=== PATIENT | male | born 1975 | race Caucasian/White ===

== ENCOUNTER 2020-08-28 21:12 | Inpatient (IN) | payer OTHER, SELFPAY ==
[2020-08-28 21:13] VITALS: BP 220/119; PULSE 122; RESP 18; TEMP 37.4; O2SAT 94; BMI 49.8
--- NOTE | 2020-08-28 21:50 | EKG12_ITS ---
Test Reason : Blood Pressure : / mmHG Vent. Rate : 113 BPM Atrial Rate : 113 BPM P-R Int : 160 ms QRS Dur : 088 ms QT Int : 340 ms P-R-T Axes : 045 015 027 degrees QTc Int : 466 ms Sinus tachycardia Otherwise normal ECG Confirmed by JOHN WHIPPLE, MICHELLE ([id number]), newspaper managing editor CHIOMA SOTELO ([id number]) on 08/30/2020 8:17:58 AM Referred By: Confirmed By:JOHANNY LOPEZ MD
--- NOTE | 2020-08-28 21:51 | CT_ITS ---
STUDY: CT SOFT TISSUE NECK WITH CONTRAST REASON FOR EXAM: Male, 45 years old. Abscess RADIATION DOSAGE (If Supplied By Facility): CTDIvol = ( 19.26 ) mGy, DLP = ( 620.61 ) mGycm TECHNIQUE: The patient was scanned in a multi-detector CT scanner. High resolution transaxial imaging was performed following intravenous administration of IV 100mL Isovue-370. Sagittal and coronal images were reconstructed. Individualized dose optimization techniques were used for this CT. COMPARISON: None. FINDINGS: Normal bilateral parotid glands. Normal bilateral sociology instructor spaces. Normal bilateral parapharyngeal spaces. Normal bilateral carotid spaces. Normal bilateral sublingual and submandibular glands and spaces. Normal visualized nasopharynx. Normal retropharyngeal space. Normal perivertebral space. Normal visualized bilateral faucial tonsils. The visualized tongue, tongue base and oropharynx are normal. The visualized cervical lymph nodes (levels I-) are within normal size limits, and maintain normal morphology. There is no demonstrated solid or cystic mass lesion. There is no abnormal contrast enhancement. Normal epiglottis, bilateral vallecula and hypopharynx. The pre-epiglottic and paraglottic adipose spaces are normal. Normal visualized bilateral piriform sinuses, aryepiglottic folds, vocal cords, and arytenoid-cricoid articulations. Normal subglottic trachea. Diffusely enlarged and heterogeneous thyroid. Normal visualized pulmonary apices. Normal visualized paranasal sinuses. Normal visualized cervical spine. Within the subcutaneous tissues of the left posterior neck, there is inflammation and edema without discrete abscess. Likely cellulitis. CT/Soft Tissue Neck WITH Contrast IMPRESSION: Within the subcutaneous tissues of the left posterior neck, inflammation and edema without a discrete abscess. Likely cellulitis. Enlarged and heterogeneous thyroid diffusely. Electronically Signed: Eric Mendes DO at 23:21 EDT Tel , Service support ,
[2020-08-28] MEDS: 0.9% Normal Saline 1,000 ML 999 ML IV (22:04)
[2020-08-28 22:21] LABS: Absolute Lymphocyte Count 2.09 X10^3/uL (0.83-4.51); Absolute Neutrophil Count 14.2 X10^3/uL (2.0-7.7); Basophil# 0.06 X10^3/uL; Basophil% 0.3 % (0-1); Eosinophil# 0.08 X10^3/uL; Eosinophils% 0.4 % (0-5); Hematocrit 48.1 % (40-54); Hemoglobin 16.1 g/dL (13.0-16.5); Lymphocyte # 2.09 X10^3/ul (0.83-4.51); Lymphocyte % 11.6 % (19-41); Mean Corp Hgb Conc 33.5 g/dL (32-36); Mean Corpuscular Volume 83.8 fL (80-94); Mean Platelet Vol. 11.5 fl (6.2-12.0); Monocyte# 1.47 X10^3/uL; Monocyte% 8.2 % (0-10); NRBC Flagged by Analyzer 0 % (0-5); Neutrophil # 14.24 X10^3/uL (2.7-7.7); Platelet Count 238 K/mm3 (150-450); RBC Distribution Width CV 11.9 % (11.6-14.6); RBC Distribution Width SD 35.9 fl (35.1-43.9); Red Blood Count 5.74 M/mm3 (4.6-6.2)
[2020-08-28 22:31] LABS: Partial Thromboplast Time 27.8 Seconds (24.1-36.2); Prothrombin Time (Protime)PT. 12.8 SECONDS (11.7-14.9)
[2020-08-28 22:43] LABS: Lactic Acid 1.9 mmol/L (0.4-1.9)
[2020-08-28 22:49] LABS: ALB/GLOB Ratio 0.8 RATIO (0.9-2.4); AST(SGOT) 5 U/L (15-37); Alanine Aminotransfer ALT/SGPT 35 U/L (16-61); Albumin, Serum 3.7 g/dL (3.2-5.0); Alkaline Phosphatase 107 U/L (45-117); Anion Gap 8 (5-15); BUN 8 mg/dL (7-18); BUN/Creat Ratio 8.1 RATIO (10-20); Calcium,Total 9.1 mg/dL (8.5-10.1); Chloride 95 mmol/L (98-107); Creatinine, Serum 0.99 mg/dL (0.70-1.30); EST Glomerular Filtration Rate 88 mL/min (>60); Est Glom Filt Rate - Afr Amer 106 mL/min (>60); Estimated Creatinine Clearance 80.56 ml/min; Globulin 4.7 g/dL (2.2-4.2); Glucose 458 mg/dL (74-106); Potassium 3.4 mmol/L (3.5-5.1); Protein, Total 8.4 g/dL (6.4-8.2); Sodium Level 131 mmol/L (136-145)
[2020-08-28 22:57] VITALS: BP 146/110; PULSE 109; RESP 17; TEMP 37; O2SAT 93
[2020-08-28 23:36] VITALS: BP 136/100; PULSE 106; RESP 17; TEMP 37; O2SAT 93
--- NOTE | 2020-08-28 23:54 | HP.PCM_ITS ---
Problem List (1) Sepsis Status: Acute Qualifiers: Sepsis type: sepsis due to unspecified organism Sepsis acute organ dysfunction status: unspecified Qualified Code(s): A41.9 - Sepsis, unspecified organism (2) Cellulitis and abscess of neck Status: Acute (3) Diabetes mellitus, type II Status: Acute Qualifiers: Diabetes mellitus intermediate insulin use: without termite helper use Diabetes mellitus complication status: with other specified complication Qualified Code(s): E11.69 - Type 2 diabetes mellitus with other specified complication (4) Morbid obesity Status: Chronic (5) HTN (hypertension) Status: Chronic Qualifiers: Hypertension type: essential hypertension Qualified Code(s): I10 - Essential (primary) hypertension History of Present Illness Date of Admission: 08/28/20 Chief Complaint: L neck edema, redness, purulent drainage. The patient is a 45 y/o M w/ PMHx: HTN not on regimen, Morbidly obese who presents to the [facility] ED on 08/28/20 with history of onset mild irritation following recent neck shave several days prior to the left neck with development increasing redness to include the entire left posterior neck inferior to his occiput tracking all the way around to the left mastoid with a significant region of induration, some free drainage with significant pain and low-grade temperatures prompting ED evaluation. He notes that he has had some small infections in the past when he shaves but never something so significant. Work- up in the ED included T 99.3, heart rate 122, BP initially 220/119 with improvement to 136/100, respiratory rate 18, 84% on room air, CBC with WC 18, hemoglobin 16.1, platelet 238 with a significant left shift, unremarkable coags, CMP with sodium 131, potassium 3.4, chloride 95, glucose 458, lactic acid 1.9, hepatic profile not marked appearing, blood culture x2 pending per ED, CT soft tissue neck with noted subcutaneous tissues of the left posterior neck evidence of inflammation edema with no obvious discrete abscess reported with reportedly also an enlarged and heterogeneous thyroid diffusely Past Medical History Past Medical History (Chronic Problems): Chronic Problems HTN (hypertension) (Chronic) Morbid obesity (Chronic) Allergies No Known Allergies Allergy (Verified 08/28/20 21:15) Home Medications: Ambulatory Orders Medication Instructions Recorded NK 08/28/20 Surgical History: - - Vasectomy. 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 Smoking Status: Never smoker Tobacco Use: Non-smoker Alcohol: None Drugs: None - *Family History Maternal History Items: Diabetes Paternal History Items: Cancer Review of Systems Constitutional: Reports: Anorexia, Fever, Fatigue. Denies: Chills, Malaise, Weakness, Weight Change HEENT: Reports: Head Aches. Denies: Sinus Congestion, Sinus Drainage Cardiovascular: Denies: Chest Pain, Palpitations Respiratory: Denies: Cough, Shortness of breath at rest, Sputum production Gastrointestinal: Denies: Abdominal Pain, Nausea, Vomiting Genitourinary: Denies: Dysuria Musculoskeletal: Reports: Neck Pain. Denies: Joint Pain, Joint Tenderness Skin: Reports: Skin Changes, Wounds. Denies: Rash Neurological: Denies: Numbness, Tingling, Focal weakness Psychiatric: Denies: Anxiety, Depression, Homicidal Ideations, Suicidal Ideations Hematologic/ Lymphatic: Denies: Easy Bruising, Easy Bleeding VTE Information - Inpt Only VTE Present on Admission: No VTE Mechan Device Prophylaxis: SCD's VTE Pharm Prophylaxis ordered?: Yes Patient Problems: Active and Suspected Problems Cellulitis (Acute) Sepsis (Acute) Diabetes mellitus, type II (Acute) Cellulitis and abscess of neck (Acute) Subjective: Patient seated upright in the ED bed, uncomfortable appearing, diaphoretic. Objective: Physical Examination: General: awake, alert, oriented x 3 and cooperative, seated upright in the ED bed, uncomfortable appearing, obvious evidence cellulitis. Skin: normal color, turgor, no icterus, cyanosis except for noted left posterior neck significant erythema extending from inferior to the occiput and tracking around past the mastoid with a large region of induration and mild fluctuance with ability to express significant purulent material. HEENT: AT/NC, EOMI, PERRLA, dry MM, no carotid bruits or JVD noted. Lungs: Diminished, greater bases, appropriate effort, no rales, ronchi or wheezing. Heart: Mildly tachycardic with regular rhythm; no gallop, rub audible. Abdomen: soft, morbidly obese, NTTP, ND, normal BS, no HSM. Extremities: no cyanosis, clubbing, or edema. Neurological: patient awake, alert, oriented as noted; cognitive function intact; pupils equally reactive to light and accomodation; cranial nerves II-XII grossly normal, moving all 4 extremities, no focal deficits, strength mildly global decrease secondary to acute complaints. Psychiatric: affect appears fatigued, uncomfortable, no acute evidence of depressive or anxiety feelings. - Physical Exam Vitals/I&O's: Vital Signs Temp Pulse Resp BP Pulse Ox 98.6 F 106 H 17 136/100 H 93 08/28/20 23:36 08/28/20 23:36 08/28/20 23:36 08/28/20 23:36 08/28/20 23:36 Oxygen Delivery Method Room Air Weight: 290 lb Body Mass Index (BMI) 49.8 Intake and Output for Last 24 Hours 08/26/20 08/27/20 08/28/20 23:59 23:59 23:59 Intake Total 1000 / 1000 Balance 1000 / 1000 Laboratory Results 08/28/20 22:05: WBC 18.0 H, RBC 5.74, Hgb 16.1, Hct 48.1, MCV 83.8, MCH 28.0, MCHC 33.5, RDW Std Deviation 35.9, RDW Coeff of [place] 11.9, Plt Count 238, MPV 11.5, Immature Gran % (Auto) 0.500, Neut % (Auto) 79.0 H, Lymph % (Auto) 11.6 L, [place] % (Auto) 8.2, Eos % (Auto) 0.4, Baso % (Auto) 0.3, Absolute Neuts (auto) 14.2 H, Absolute Lymphs (auto) 2.09, Nucleated RBC % 0 08/28/20 22:05: PT 12.8, INR 1.0, APTT 27.8 08/28/20 22:05: Sodium 131 L, Potassium 3.4 L, Chloride 95 L, Carbon Dioxide 28.0, Anion Gap 8, BUN 8, Creatinine 0.99, Estim Creat Clear Calc 80.56, Est GFR (MDRD) Af Amer 106, Est GFR (MDRD) Non-Af 88, BUN/Creatinine Ratio 8.1 L, Glucose 458 H*, Calcium 9.1, Total Bilirubin 0.80, AST 5 L, ALT 35, Alkaline Phosphatase 107, Total Protein 8.4 H, Albumin 3.7, Globulin 4.7 H, Albumin/Globulin Ratio 0.8 L 08/28/20 22:05: Lactic Acid 1.9 Current Medications Vancomycin HCl 2,000 mg/ (Sodium Chloride) 540 mls @ 250 mls/hr IV X1 ONE Stop: 08/29/20 00:04 Last Admin: 08/28/20 22:12 Dose: 250 mls/hr Documented by: Assessment/Plan All Active Problems Cellulitis (Acute) Sepsis (Acute) Diabetes mellitus, type II (Acute) Cellulitis and abscess of neck (Acute) The patient is a 45 y/o M w/ PMHx: HTN not on regimen, Morbidly obese who presents to the [facility] ED on 08/28/20 with history of onset mild irritation following recent neck shave several days prior to the left neck with development increasing redness to include the entire left posterior neck inferior to his occiput tracking all the way around to the left mastoid with a significant region of induration, some free drainage with significant pain and low-grade temperatures prompting ED evaluation. 1. Acute Sepsis secondary to Acute Left Posterior Neck Cellulitis and Abscess: Although CT soft tissue neck does not do note discrete abscess patient with obvious significant purulent drainage on evaluation with wound culture and wound MRSA PCR sent during ED evaluation. Will admit to medical surgical floor, maintain on IV vancomycin and Zosyn given underlying diabetic history and working environment, plan repeat CBC in AM, monitor erythema outline with VS checks, as needed oral and IV pain regimen, as needed antiemetics, general surgeon consulted and will maintain n.p.o. status on IV fluids as suspect will likely need I&D. 2. Hyperglycemia with suspected underlying new onset Diabetes mellitus type II: Admission glucose significantly elevated 458, likely underlying diabetes compounded by acute infection presentation with sepsis, will maintain n.p.o. currently as expect I&D necessary but once appropriate transition to ADA diet, accu checks w/ ISS, add 10 units twice daily Lantus in interim, nutrition consultation for education and teaching, hemoglobin A1c requested. 3. Hypertension, uncontrolled: Patient reports having been diagnosed with hypertension but not on any medications, initial blood pressure significantly elevated although improved some in the ED, some component likely pain related but given underlying history will add lisinopril especially given presumed underlying diabetes, expect additional regimen or increase needed but will monitor and adjust as needed, as needed IV hydralazine. 4. Incidentally noted enlarged and heterogeneous thyroid: CT soft tissue neck with incidental thyroid findings, will obtain TSH and free T4. 5. Morbid Obesity: Weight loss and lifestyle changes encouraged, nutrition consulted. 6. DVT prophylaxis: SCDs, Lovenox. Inpatient E&M: [id number] Init Hosp L3
[2020-08-29] VITALS (16 sets, daily range): BP systolic 142–176; BP diastolic 89–117; PULSE 98–122; RESP 12–18; TEMP 36.8–38; O2SAT 93–97; BMI 32.5; BMI 32.6
--- NOTE | 2020-08-29 00:16 | ED.VIS.GEN ---
History of Present Illness Chief Complaint: Abscess Narrative: Patient presenting for evaluation due to concern for an infection in his neck. Patient states that over the course the last 2 days he has had increased swelling and pain over his left posterior neck. Patient states that he has a underlying history of hypertension that he does not take medications for denies any other underlying medical history. He denies any constitutional symptoms such as fever cough nausea vomiting diarrhea. Patient believes that this could potentially be an abscess, he tried to squeeze some stuff out of it but reports he was not able to express anything. Pain is moderate worse palpation. Past Medical History - Allergies and Home Meds Allergies/Adverse Reactions: Allergies No Known Allergies Allergy (Verified 08/28/20 21:15) Primary Care Physician: Care Physician,No Primary [Primary Care Provider] - Prior records reviewed: Yes Past Medical History: - - Hypertension Smoking Status: Never smoker Alcohol: None Drugs: None Review of Systems All systems negative except as indicated General: Denies: Chills, Fever, Sweats Eyes: Denies: Visual changes - bilaterally, Diplopia ENT: Denies: Rhinorrhea, Sore throat Cardiovascular: Denies: Chest pain, Palpitations Respiratory: Denies: Dyspnea, Cough, Dyspnea on exertion Gastrointestinal: Denies: Abdominal pain, Nausea, Vomiting, Diarrhea, Melena, Hematochezia Genitourinary: Denies: Dysuria, Hematuria, Frequency Musculoskeletal: Denies: Back pain, Extremity Pain Skin: Reports: Abscess Neurological: Denies: Headache, Weakness, Numbness Physical Exam Vital Signs/Narrative: Vital Signs Temp Pulse Resp BP Pulse Ox 08/28/20 23:36 98.6 F 106 H 17 136/100 H 93 08/28/20 22:57 98.6 F 109 H 17 146/110 H 93 08/28/20 21:13 99.3 F H 122 H 18 220/119 H 94 Inital Vital Signs reviewed: Yes General: Well nourished, Well developed, No Acute Distress Head: Normocephalic, Atraumatic Eyes: Perrl, EOMI ENT: Moist mucous membranes, No rhinorrhea Neck: Supple, - - Over the patient's left side of his posterior neck just inferior to his occiput and tracking all the way around past his mastoid there is a large area of induration with some superficial pus on the skin, no real palpable fluctuance. No subcutaneous emphysema. There is tenderness to palpation noted Cardiovascular: Regular rhythm, No murmurs, Tachycardia Respiratory: No distress, CTA bilaterally, Chest nontender Abdomen: Soft, Nontender, Nondistended, Normal bowel sounds Back: Nontender, Normal Inspection Extremities: Nontender, No edema Skin: Normal color, No rash Neurological: Alert, Oriented x3, Cranial nerves II-XII grossly intact, Normal Strength, Normal Sensation Psychological: Normal affect, Normal Mood Diagnostic/Tx/Re-eval Clinical Impression(s) from Imaging Studies Soft Tissue Neck CT 08/28/20 21:51 IMPRESSION: Within the subcutaneous tissues of the left posterior neck, inflammation and edema without a discrete abscess. Likely cellulitis. Enlarged and heterogeneous thyroid diffusely. Electronically Signed: Eric Mendes DO at 23:21 EDT Tel , Service support , Laboratory Data 08/28/20 08/28/20 08/28/20 22:05 22:05 22:05 WBC 18.0 H RBC 5.74 Hgb 16.1 Hct 48.1 MCV 83.8 MCH 28.0 MCHC 33.5 RDW Std Deviation 35.9 RDW Coeff of [place] 11.9 Plt Count 238 MPV 11.5 Immature Gran % (Auto) 0.500 Neut % (Auto) 79.0 H Lymph % (Auto) 11.6 L [place] % (Auto) 8.2 Eos % (Auto) 0.4 Baso % (Auto) 0.3 Absolute Neuts (auto) 14.2 H Absolute Lymphs (auto) 2.09 Nucleated RBC % 0 PT 12.8 INR 1.0 APTT 27.8 Sodium 131 L Potassium 3.4 L Chloride 95 L Carbon Dioxide 28.0 Anion Gap 8 BUN 8 Creatinine 0.99 Estim Creat Clear Calc 80.56 Est GFR (MDRD) Af Amer 106 Est GFR (MDRD) Non-Af 88 BUN/Creatinine Ratio 8.1 L Glucose 458 H* Lactic Acid Calcium 9.1 Total Bilirubin 0.80 AST 5 L ALT 35 Alkaline Phosphatase 107 Total Protein 8.4 H Albumin 3.7 Globulin 4.7 H Albumin/Globulin Ratio 0.8 L 08/28/20 22:05 WBC RBC Hgb Hct MCV MCH MCHC RDW Std Deviation RDW Coeff of [place] Plt Count MPV Immature Gran % (Auto) Neut % (Auto) Lymph % (Auto) [place] % (Auto) Eos % (Auto) Baso % (Auto) Absolute Neuts (auto) Absolute Lymphs (auto) Nucleated RBC % PT INR APTT Sodium Potassium Chloride Carbon Dioxide Anion Gap BUN Creatinine Estim Creat Clear Calc Est GFR (MDRD) Af Amer Est GFR (MDRD) Non-Af BUN/Creatinine Ratio Glucose Lactic Acid 1.9 Calcium Total Bilirubin AST ALT Alkaline Phosphatase Total Protein Albumin Globulin Albumin/Globulin Ratio - Medical Decision Making Patient presented with a large area of skin infection on his neck. He was tachycardic on arrival, and noted to have a large infectious area on his neck I was concerned for sepsis, sepsis order set was initiated patient was given vancomycin at the outside. CT imaging shows more cellulitic changes with no pockets of discrete abscess and no deep space infection. Patient was noted to have a leukocytosis of 18,000 and a blood sugar greater than 400. I believe the patient requires admission secondary to sepsis from the cellulitis. Patient will be admitted under the hospitalist. ED Disposition - Plan for ED Patient: Disposition: Acute [facility] Diagnosis: Cellulitis, Sepsis
[2020-08-29] MEDS: Acetaminophen 325 MG Tablet 650 MG PO ×3 (00:28→19:33)
[2020-08-29 00:56] LABS: Bedside Glucose 337 mg/dL (70-110)
[2020-08-29] MEDS: Potassium Chloride Oral Tablet 20 MEQ 40 MEQ PO (01:24)
[2020-08-29] MEDS: Lisinopril 10 MG Tablet PO ×2 (01:28→08:15)
[2020-08-29 01:36] LABS: Hemoglobin A1c 11.8 % (3.8-5.6)
[2020-08-29 01:38] LABS: Magnesium 2.1 mg/dL (1.6-2.6)
--- NOTE | 2020-08-29 01:59 | PCM.RX.CS ---
Consult Pharmacy has been consulted to manage selected antiobiotic: Vancomycin Type of Consult: New start Suspected Infection: Sepsis Labs: Sodium 131 mmol/L (136-145) L 08/28/20 22:05 Potassium 3.4 mmol/L (3.5-5.1) L 08/28/20 22:05 Chloride 95 mmol/L (98-107) L 08/28/20 22:05 Carbon Dioxide 28.0 mmol/L (21.0-32.0) 08/28/20 22:05 Anion Gap 8 (5-15) 08/28/20 22:05 BUN 8 mg/dL (7-18) 08/28/20 22:05 Creatinine 0.99 mg/dL (0.70-1.30) 08/28/20 22:05 Est GFR (MDRD) Af Amer 106 mL/min (>60) 08/28/20 22:05 Est GFR (MDRD) Non-Af 88 mL/min (>60) 08/28/20 22:05 BUN/Creatinine Ratio 8.1 RATIO (10-20) L 08/28/20 22:05 Glucose 458 mg/dL (74-106) H* 08/28/20 22:05 Weight used for dosin.4 kg Estimated Creatinine Clearance: 137 Goal Trough: 15-20 mcg/mL Pharmacy Plan for Drug Dosing: Pharmacy Service will continue to monitor and adjust dosing as required. Medications Vancomycin HCl 1,500 mg/ (Sodium Chloride) 530 mls @ 250 mls/hr IV Q8H [place] Discontinued Medications Vancomycin HCl 2,000 mg/ (Sodium Chloride) 540 mls @ 250 mls/hr IV X1 ONE Stop: 08/29/20 00:04 Last Admin: 08/29/20 00:41 Dose: Infused Documented by: Follow-Up Labs: Trough Vancomycin Labs to be done on [date and time ordered]: 08/29 @ 1570
[2020-08-29] MEDS: 0.9% Normal Saline 1,000 ML 125 ML IV ×3 (02:14→22:44)
[2020-08-29 03:24] LABS: M R Staph aureus DNA By PCR POSITIVE (Negative); Specimen Processing Control PASS; Staph aureus DNA By PCR POSITIVE (Negative)
[2020-08-29 03:25] LABS: Probe Check PASS
[2020-08-29] MEDS: oxyCODONE 5 MG Tablet PO ×3 (03:37→19:42)
[2020-08-29] MEDS: Morphine 2 MG/ML Syringe IV ×3 (05:29→11:59)
[2020-08-29 06:51] LABS: Bedside Glucose 270 mg/dL (70-110)
[2020-08-29] MEDS: Insulin Lispro 100 UNIT/ML INSULN.PEN SC ×4 (06:58→22:13)
[2020-08-29 07:06] LABS: Absolute Lymphocyte Count 1.45 X10^3/uL (0.83-4.51); Absolute Neutrophil Count 12.5 X10^3/uL (2.0-7.7); Basophil# 0.04 X10^3/uL; Basophil% 0.3 % (0-1); Eosinophils% 0.6 % (0-5); Hemoglobin 14.2 g/dL (13.0-16.5); Lymphocyte # 1.45 X10^3/ul (0.83-4.51); Lymphocyte % 9.2 % (19-41); Mean Corp Hgb Conc 32.3 g/dL (32-36); Mean Corpuscular Hgb 27.7 pg (27.0-32.0); Mean Corpuscular Volume 85.9 fL (80-94); Mean Platelet Vol. 11.2 fl (6.2-12.0); Monocyte# 1.51 X10^3/uL; Monocyte% 9.6 % (0-10); NRBC Flagged by Analyzer 0 % (0-5); Neutrophil # 12.49 X10^3/uL (2.7-7.7); Neutrophil % 79.2 % (47-70); POSITIVE DIFFERENTIAL YES; Platelet Count 207 K/mm3 (150-450); RBC Distribution Width SD 37.8 fl (35.1-43.9); Red Blood Count 5.12 M/mm3 (4.6-6.2); White Blood Count 15.8 K/mm3 (4.4-11.0)
[2020-08-29 07:07] LABS: Differential Indicated SCAN CRITERIA MET
[2020-08-29 07:40] LABS: ALB/GLOB Ratio 0.7 RATIO (0.9-2.4); AST(SGOT) 8 U/L (15-37); Alanine Aminotransfer ALT/SGPT 26 U/L (16-61); Albumin, Serum 2.9 g/dL (3.2-5.0); Alkaline Phosphatase 89 U/L (45-117); Anion Gap 7 (5-15); BUN 8 mg/dL (7-18); Calcium,Total 8.3 mg/dL (8.5-10.1); Chloride 102 mmol/L (98-107); Creatinine, Serum 0.73 mg/dL (0.70-1.30); EST Glomerular Filtration Rate 125 mL/min (>60); Est Glom Filt Rate - Afr Amer 151 mL/min (>60); Estimated Creatinine Clearance 160.19 ml/min; Glucose 302 mg/dL (74-106); Potassium 3.6 mmol/L (3.5-5.1); Protein, Total 6.9 g/dL (6.4-8.2); Sodium Level 136 mmol/L (136-145); T4 Free Direct 1.23 ng/dL (0.76-1.46); Thyroid Stim Hormone (TSH) 1.27 uIU/mL (0.358-3.74)
--- NOTE | 2020-08-29 08:02 | PN_ITS ---
Patient Problems: Active and Suspected Problems Cellulitis (Acute) Sepsis (Acute) Diabetes mellitus, type II (Acute) Cellulitis and abscess of neck (Acute) Reason for Visit: Soft tissue infection involving the left side of the neck Subjective: Patient is a 45-year-old gentleman who presented with swelling involving the left side of the neck Objective: GENERAL: cooperative HEENT: Atraumatic; EYES; Anicteric, Normal Conjunctiva NECK; an area of induration involving the left posterior side of the neck with erythema and warmth RESPIRATORY: Diminished to auscultation CARDIOVASCULAR: Regular S1 S2, GI: soft, normoactive bowel sounds, : No Renal angle tenderness; EXTREMITIES: No edema, no clubbing, MUSCULOSKELETAL: no muscle waisting NEURO: Awake; no lateralizing signs. SKIN: As described above PSYCH; Flat affect Vitals/I&O's: Vital Signs Temp Pulse Resp BP Pulse Ox 98.8 F 122 H 16 150/94 H 97 08/29/20 05:22 08/29/20 06:50 08/29/20 05:22 08/29/20 05:22 08/29/20 05:22 Oxygen Delivery Method Room Air Weight: 123.1 kg Body Mass Index (BMI) 32.5 Intake and Output for Last 24 Hours 08/27/20 08/28/20 08/29/20 23:59 23:59 23:59 Intake Total 1000 / 1000 1120 / 1120 Output Total 525 / 525 Balance 1000 / 1000 595 / 595 Laboratory Results 08/28/20 22:05: WBC 18.0 H, RBC 5.74, Hgb 16.1, Hct 48.1, MCV 83.8, MCH 28.0, MCHC 33.5, RDW Std Deviation 35.9, RDW Coeff of [place] 11.9, Plt Count 238, MPV 11.5, Immature Gran % (Auto) 0.500, Neut % (Auto) 79.0 H, Lymph % (Auto) 11.6 L, [place] % (Auto) 8.2, Eos % (Auto) 0.4, Baso % (Auto) 0.3, Absolute Neuts (auto) 14.2 H, Absolute Lymphs (auto) 2.09, Nucleated RBC % 0 08/28/20 22:05: PT 12.8, INR 1.0, APTT 27.8 08/28/20 22:05: Sodium 131 L, Potassium 3.4 L, Chloride 95 L, Carbon Dioxide 28.0, Anion Gap 8, BUN 8, Creatinine 0.99, Estim Creat Clear Calc 80.56, Est GFR (MDRD) Af Amer 106, Est GFR (MDRD) Non-Af 88, BUN/Creatinine Ratio 8.1 L, Glucose 458 H*, Calcium 9.1, Total Bilirubin 0.80, AST 5 L, ALT 35, Alkaline Phosphatase 107, Total Protein 8.4 H, Albumin 3.7, Globulin 4.7 H, Albumin/Globulin Ratio 0.8 L 08/28/20 22:05: Lactic Acid 1.9 08/29/20 00:30: S.aureus Protein A PCR POSITIVE H, MRSA (PCR) POSITIVE H 08/29/20 00:46: POC Glucose 337 H 08/29/20 06:30: WBC 15.8 H, RBC 5.12, Hgb 14.2, Hct 44.0, MCV 85.9, MCH 27.7, MCHC 32.3, RDW Std Deviation 37.8, RDW Coeff of [place] 12.0, Plt Count 207, MPV 11.2, Immature Gran % (Auto) 1.100 H, Neut % (Auto) 79.2 H, Lymph % (Auto) 9.2 L , [place] % (Auto) 9.6, Eos % (Auto) 0.6, Baso % (Auto) 0.3, Absolute Neuts (auto) 12.5 H, Absolute Lymphs (auto) 1.45, Nucleated RBC % 0, Diff Path Review September08/29/20 06:30: Sodium 136, Potassium 3.6, Chloride 102, Carbon Dioxide 27.0, Anion Gap 7, BUN 8, Creatinine 0.73, Estim Creat Clear Calc 160.19, Est GFR (MDRD) Af Amer 151, Est GFR (MDRD) Non-Af 125, BUN/Creatinine Ratio 11.0, Glucose 302 H, Calcium 8.3 L, Total Bilirubin 1.10 H, AST 8 L, ALT 26, Alkaline Phosphatase 89, Total Protein 6.9, Albumin 2.9 L, Globulin 4.0, Albumin/Globulin Ratio 0.7 L, TSH 1.27, Free T4 1.23 08/29/20 06:43: POC Glucose 270 H 08/29/20 : Magnesium 2.1 08/29/20 : Hemoglobin A1c 11.8 H Current Medications Acetaminophen (Acetaminophen 325 Mg Tablet) 650 mg PO Q6H PRN PRN PRN Reason: Pain Score 1-10/Temp > 100.7 F Al Hydroxide/Mg Hydroxide (Mag Hydrox/Al Hydrox/Simeth 30 Ml Udc) 30 ml PO Q6H PRN PRN PRN Reason: Gastric Burning Albuterol Sulfate (Albuterol 2.5 Mg/3 Ml Vial.Neb.) 2.5 mg INHALATION Q2H PRN PRN PRN Reason: Dyspnea, wheezing Dextrose (Dextrose 50%-Water 25 Gm/50 Ml Disp.Syrin) 0 gm IV X1 PRN; Protocol PRN Reason: Hypoglycemia Enoxaparin Sodium (Enoxaparin 40 Mg/0.4 Ml Syringe) 40 mg SC DAILY [place] Famotidine (Famotidine 20 Mg Tablet) 20 mg PO BID [place] Glucagon (Glucagon 1 Mg/Ml Syringe) 1 mg IM .X1 PRN PRN Reason: Hypoglycemia Guaifenesin (Guaifenesin 10 Ml Udc (200mg/10ml)) 20 ml PO Q4H PRN PRN PRN Reason: COUGH Hydralazine HCl (Hydralazine 20 Mg/Ml Vial) 10 mg IV Q4H PRN PRN PRN Reason: SBP > 160 Sodium Chloride () 1,000 mls @ 125 mls/hr IV .Q8H [facility] Last Admin: 08/29/20 02:14 Dose: 125 mls/hr Documented by: Piperacillin Sod/Tazobactam (Sod 3.375 gm/ Sodium Chloride) 50 mls @ 12.5 mls/hr IV Q8 [facility] Last Admin: 08/29/20 05:45 Dose: 12.5 mls/hr Documented by: Vancomycin IV Pharmacy to Dose (1 each/ Sodium Chloride) 500 mls @ 250 mls/hr IV X1 PRN; Protocol PRN Reason: Rx to Dose Vancomycin HCl 1,500 mg/ (Sodium Chloride) 530 mls @ 250 mls/hr IV Q8H [facility] Last Infusion: 08/29/20 08:00 Dose: Infused Documented by: Insulin Glargine (Insulin Glargine 100 Units/Ml Pen) 10 units SC BID [facility] Last Admin: 08/29/20 01:31 Dose: 10 units Documented by: Insulin Human Lispro (Insulin Lispro 100 Unit/Ml Insuln.Pen) 0 unit SC ACHS [facility]; Protocol Last Admin: 08/29/20 06:58 Dose: 4 u Documented by: Lisinopril (Lisinopril 10 Mg Tablet) 10 mg PO DAILY [place] Magnesium Hydroxide (Magnesium Hydroxide 30 Ml Udc) 30 ml PO DAILY PRN PRN PRN Reason: Constipation Morphine Sulfate (Morphine 2 Mg/Ml Syringe) 2 mg IV Q3H PRN PRN PRN Reason: Pain Score 6-10 Last Admin: 08/29/20 05:29 Dose: 2 mg Documented by: Ondansetron HCl (Ondansetron 4 Mg/2 Ml Vial) 4 mg IV Q8H PRN PRN PRN Reason: NAUSEA/VOMITING Oxycodone HCl (Oxycodone 5 Mg Tablet) 5 mg PO Q4H PRN PRN PRN Reason: Pain Score 4-5 Last Admin: 08/29/20 03:37 Dose: 5 mg Documented by: Prochlorperazine Edisylate (Prochlorperazine 10 Mg/2 Ml Vial) 5 mg IV Q4H PRN PRN PRN Reason: Breakthrough nausea/vomiting Psyllium Hydrophilic Mucilloid (Psyllium 1 Packet) 1 packet PO DAILY PRN PRN PRN Reason: Constipation Senna/Docusate Sodium (Senna/Docusate Sodium 1 Tablet) 2 tablet PO BID PRN PRN PRN Reason: Constipation Sodium Chloride (0.9% Saline Lock 10 Ml Syringe) 10 - 40 ml IV UD PRN PRN Reason: SALINE FLUSH Temazepam (Temazepam 15 Mg Capsule) 15 mg PO QHS PRN PRN PRN Reason: INSOMNIA Throat Lozenges (Benzocaine/Menthol 1 Lozenge) 1 lozenge MUCOUS MEM Q2H PRN PRN PRN Reason: SORE THROAT STROKE Vital Signs/Narrative: Vital Signs Temp Pulse Resp BP Pulse Ox 08/29/20 06:50 122 H 08/29/20 05:22 98.8 F 108 H 16 150/94 H 97 Medical Necessity - Tobacco Use Smoking Status: Never smoker Tobacco Use: Non-smoker Assessment/Plan All Active Problems Cellulitis (Acute) Sepsis (Acute) Diabetes mellitus, type II (Acute) Cellulitis and abscess of neck (Acute) Patient is a 45-year-old gentleman who presented with swelling involving the left side of the neck 1. Left Posterior neck cellulitis ?Patient admitted to regular nursing floor started on broad-spectrum antibiotic therapy with vancomycin and Zosyn. CT of the neck obtained on admission demonstrated inflammation and edema without a discrete abscess Within the subcutaneous tissues of the left posterior neck,. Likely cellulitis. Consult placed to general surgery 2. New onset diabetes mellitus type 2 Order hemoglobin A1c. Placed on long acting insulin, Accu-Cheks a.c. and at bedtime and covered with sliding scale insulin she was also placed on 1800 ADA diet and consult placed to diabetic education 3. Essential hypertension - newly diagnosed; was started on lisinopril 4. Enlarging heterogeneous thyroid Patient to undergo ultrasound of the thyroid as outpatient following resolution of her left neck 5. Obesity with BMI of 33 ?Weight loss advised 6. DVT prophylaxis ?Lovenox Inpatient E&M: 71495 Subs Hosp L2
[2020-08-29] MEDS: Famotidine 20 MG Tablet PO ×2 (08:15→22:15)
[2020-08-29] MEDS: 0.9% Saline Lock 10 ML Syringe IV ×3 (08:16→11:59)
--- NOTE | 2020-08-29 10:05 | CASEMGMT ---
WILI REGAN Assessment: Face to Face with pt for initial transition planning/care coordination assessment. WILI REGAN introduced self and role at [facility], pt voices understanding and consents to assessment. Pt is A/O x4 and answers all questions appropriately at this time. Pt sitting up in bed in no distress. Care providers, pharmacy, and demographics verified/updated. Admitting Dx: sepsis, cellulitis neck PCP: Pt reports that he does not have a PCP. Provided a list of local PCP's. Specialists: Pt denies seeing a physician for 15 years. Preferred Pharmacy: [facility] Insurance: Commercial Prescription Benefit: No LW/HPOA: Pt denies having a LW/DPOA. LNOK: , Latasha Irizarry Living Arrangements: Pt reports he lives in a camper on a man's property on [address] alone. He reports having running water. Pt reports being I in ADL's and denies concerns. Transportation: Pt drives self and denies concerns with transportation. DME/HHC/SNF: Pt denies having DME, previous HHC or SNF stays. 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 Pt lives in [place] normally but is here for work for at least 5 more years. States his will be moving up here. Pt states no concerns with going home at time of dc. Pt states no further concerns/needs. CM to follow for wound care, IV antibiotics. Advised pt to ask CM if any further question/concerns/needs arise, voices understanding. Pt Goal: Home Plan: Home will follow for wound care, IV antibiotics.
[2020-08-29 10:30] LABS: Bedside Glucose 296 mg/dL (70-110)
--- NOTE | 2020-08-29 10:39 | CON.PCM_ITS ---
Reason for Consult Date of Consultation: 08/29/20 History of Present Illness: The patient is a 45 year old M admitted due to sepsis/left neck cellulitis. Patient's CT of the neck on admission did not show any obvious fluid collections only cellulitis in the left neck. Patient is currently treated on IV anti biotics with vancomycin and Zosyn. Patient's blood sugars have improved initially on admission they were over 400.Patient states she is never had anything like this previously he has had smaller areas of redness which he was able to pop and then got better. Patient did try to squeeze this area about 2 days ago. Patient states he does not check his blood sugars. Past Medical History Past Medical History (Chronic Problems): Chronic Problems HTN (hypertension) (Chronic) Morbid obesity (Chronic) Allergies No Known Allergies Allergy (Verified 08/28/20 21:15) Home Medications: Ambulatory Orders Medication Instructions Recorded NK 08/28/20 Surgical History: - - Vasectomy. 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 Smoking Status: Never smoker Tobacco Use: Non-smoker Alcohol: None Drugs: None - *Family History Maternal History Items: Diabetes Paternal History Items: Cancer Patient Problems: Active and Suspected Problems Cellulitis (Acute) Sepsis (Acute) Diabetes mellitus, type II (Acute) Cellulitis and abscess of neck (Acute) - Physical Exam Vitals/I&O's: Vital Signs Temp Pulse Resp BP Pulse Ox 99.0 F 112 H 18 142/89 H 94 08/29/20 08:11 08/29/20 08:11 08/29/20 08:11 08/29/20 08:11 08/29/20 08:11 Oxygen Delivery Method Room Air Weight: 271 lb 6.224 oz Body Mass Index (BMI) 32.5 Intake and Output for Last 24 Hours 08/27/20 08/28/20 08/29/20 23:59 23:59 23:59 Intake Total 1000 / 1000 1170 / 1170 Output Total 525 / 525 Balance 1000 / 1000 645 / 645 General: Alert, Oriented x3, Cooperative Neck: - - Left neck:Area of about 2 x 2 cm with small little purulent pustules induration of about 9 cm with erythema extending a couple centimeters beyond that.Able to express a small amount of purulent material from different areas with pressure.Bedside ultrasound did not show 1 discrete fluid collection Skin: - - see neck--Ultrasound did not show discrete fluid collection but did show fluid with the tissue below the area that was 2 cm x 2 cm Neurological: Cranial nerves II-XII grossly intact Laboratory Results 08/28/20 22:05: WBC 18.0 H, RBC 5.74, Hgb 16.1, Hct 48.1, MCV 83.8, MCH 28.0, MCHC 33.5, RDW Std Deviation 35.9, RDW Coeff of [place] 11.9, Plt Count 238, MPV 11.5, Immature Gran % (Auto) 0.500, Neut % (Auto) 79.0 H, Lymph % (Auto) 11.6 L, [place] % (Auto) 8.2, Eos % (Auto) 0.4, Baso % (Auto) 0.3, Absolute Neuts (auto) 14.2 H, Absolute Lymphs (auto) 2.09, Nucleated RBC % 0 08/28/20 22:05: PT 12.8, INR 1.0, APTT 27.8 08/28/20 22:05: Sodium 131 L, Potassium 3.4 L, Chloride 95 L, Carbon Dioxide 28.0, Anion Gap 8, BUN 8, Creatinine 0.99, Estim Creat Clear Calc 80.56, Est GFR (MDRD) Af Amer 106, Est GFR (MDRD) Non-Af 88, BUN/Creatinine Ratio 8.1 L, Glucose 458 H*, Calcium 9.1, Total Bilirubin 0.80, AST 5 L, ALT 35, Alkaline Phosphatase 107, Total Protein 8.4 H, Albumin 3.7, Globulin 4.7 H, Albumin/Globulin Ratio 0.8 L 08/28/20 22:05: Lactic Acid 1.9 08/29/20 00:30: S.aureus Protein A PCR POSITIVE H, MRSA (PCR) POSITIVE H 08/29/20 00:46: POC Glucose 337 H 08/29/20 06:30: WBC 15.8 H, RBC 5.12, Hgb 14.2, Hct 44.0, MCV 85.9, MCH 27.7, MCHC 32.3, RDW Std Deviation 37.8, RDW Coeff of [place] 12.0, Plt Count 207, MPV 11.2, Immature Gran % (Auto) 1.100 H, Neut % (Auto) 79.2 H, Lymph % (Auto) 9.2 L , [place] % (Auto) 9.6, Eos % (Auto) 0.6, Baso % (Auto) 0.3, Absolute Neuts (auto) 12.5 H, Absolute Lymphs (auto) 1.45, Nucleated RBC % 0, Diff Path Review September08/29/20 06:30: Sodium 136, Potassium 3.6, Chloride 102, Carbon Dioxide 27.0, Anion Gap 7, BUN 8, Creatinine 0.73, Estim Creat Clear Calc 160.19, Est GFR (MDRD) Af Amer 151, Est GFR (MDRD) Non-Af 125, BUN/Creatinine Ratio 11.0, Glucose 302 H, Calcium 8.3 L, Total Bilirubin 1.10 H, AST 8 L, ALT 26, Alkaline Phosphatase 89, Total Protein 6.9, Albumin 2.9 L, Globulin 4.0, Albumin/Globulin Ratio 0.7 L, TSH 1.27, Free T4 1.23 08/29/20 06:43: POC Glucose 270 H 08/29/20 10:23: POC Glucose 296 H 08/29/20 : Magnesium 2.1 08/29/20 : Hemoglobin A1c 11.8 H Current Medications Acetaminophen (Acetaminophen 325 Mg Tablet) 650 mg PO Q6H PRN PRN PRN Reason: Pain Score 1-10/Temp > 100.7 F Al Hydroxide/Mg Hydroxide (Mag Hydrox/Al Hydrox/Simeth 30 Ml Udc) 30 ml PO Q6H PRN PRN PRN Reason: Gastric Burning Albuterol Sulfate (Albuterol 2.5 Mg/3 Ml Vial.Neb.) 2.5 mg INHALATION Q2H PRN PRN PRN Reason: Dyspnea, wheezing Dextrose (Dextrose 50%-Water 25 Gm/50 Ml Disp.Syrin) 0 gm IV X1 PRN; Protocol PRN Reason: Hypoglycemia Enoxaparin Sodium (Enoxaparin 40 Mg/0.4 Ml Syringe) 40 mg SC DAILY [facility] Last Admin: 08/29/20 10:21 Dose: Not Given Documented by: Famotidine (Famotidine 20 Mg Tablet) 20 mg PO BID [facility] Last Admin: 08/29/20 08:15 Dose: 20 mg Documented by: Glucagon (Glucagon 1 Mg/Ml Syringe) 1 mg IM .X1 PRN PRN Reason: Hypoglycemia Guaifenesin (Guaifenesin 10 Ml Udc (200mg/10ml)) 20 ml PO Q4H PRN PRN PRN Reason: COUGH Hydralazine HCl (Hydralazine 20 Mg/Ml Vial) 10 mg IV Q4H PRN PRN PRN Reason: SBP > 160 Sodium Chloride () 1,000 mls @ 125 mls/hr IV .Q8H [facility] Last Admin: 08/29/20 02:14 Dose: 125 mls/hr Documented by: Piperacillin Sod/Tazobactam (Sod 3.375 gm/ Sodium Chloride) 50 mls @ 12.5 mls /hr IV Q8 [facility] Last Infusion: 08/29/20 10:27 Dose: Infused Documented by: Vancomycin IV Pharmacy to Dose (1 each/ Sodium Chloride) 500 mls @ 250 mls/hr IV X1 PRN; Protocol PRN Reason: Rx to Dose Vancomycin HCl 1,500 mg/ (Sodium Chloride) 530 mls @ 250 mls/hr IV Q8H [facility] Last Infusion: 08/29/20 08:00 Dose: Infused Documented by: Insulin Glargine (Insulin Glargine 100 Units/Ml Pen) 10 units SC BID [facility] Last Admin: 08/29/20 08:20 Dose: 10 units Documented by: Insulin Human Lispro (Insulin Lispro 100 Unit/Ml Insuln.Pen) [facility]; Protocol Last Admin: 08/29/20 10:23 Dose: 4 u Documented by: Lisinopril (Lisinopril 10 Mg Tablet) 10 mg PO DAILY [facility] Last Admin: 08/29/20 08:15 Dose: 10 mg Documented by: Magnesium Hydroxide (Magnesium Hydroxide 30 Ml Udc) 30 ml PO DAILY PRN PRN PRN Reason: Constipation Morphine Sulfate (Morphine 2 Mg/Ml Syringe) 2 mg IV Q3H PRN PRN PRN Reason: Pain Score 6-10 Last Admin: 08/29/20 08:22 Dose: 2 mg Documented by: Ondansetron HCl (Ondansetron 4 Mg/2 Ml Vial) 4 mg IV Q8H PRN PRN PRN Reason: NAUSEA/VOMITING Oxycodone HCl (Oxycodone 5 Mg Tablet) 5 mg PO Q4H PRN PRN PRN Reason: Pain Score 4-5 Last Admin: 08/29/20 03:37 Dose: 5 mg Documented by: Prochlorperazine Edisylate (Prochlorperazine 10 Mg/2 Ml Vial) 5 mg IV Q4H PRN PRN PRN Reason: Breakthrough nausea/vomiting Psyllium Hydrophilic Mucilloid (Psyllium 1 Packet) 1 packet PO DAILY PRN PRN PRN Reason: Constipation Senna/Docusate Sodium (Senna/Docusate Sodium 1 Tablet) 2 tablet PO BID PRN PRN PRN Reason: Constipation Sodium Chloride (0.9% Saline Lock 10 Ml Syringe) 10 - 40 ml IV UD PRN PRN Reason: SALINE FLUSH Last Admin: 08/29/20 08:23 Dose: 10 ml Documented by: Temazepam (Temazepam 15 Mg Capsule) 15 mg PO QHS PRN PRN PRN Reason: INSOMNIA Throat Lozenges (Benzocaine/Menthol 1 Lozenge) 1 lozenge MUCOUS MEM Q2H PRN PRN PRN Reason: SORE THROAT Assessment/Plan All Active Problems Cellulitis (Acute) Sepsis (Acute) Diabetes mellitus, type II (Acute) Cellulitis and abscess of neck (Acute) 45-year-old male with left neck cellulitis, sepsis, uncontrolled diabetes 1. Reviewed CT neck no obvious fluid collection noted. However on exam and is suspicious for abscess and discussed with patient that likely performing I&D/debridement would help the antibiotics work a little better. Discussed the procedure including risks not limited to bleeding for further I&D. Patient no further questions agreed to proceed. Continue IV antibiotics with Vanco and Zosyn. Cultures previously sent are pending. Patient is positive for MRSA on PCR. 2. Diabetes?blood sugar control per primary.Encourage patient to check blood sugars regularly at home Ro Fong M.D. Pager: [phone] [facility] [address] [place] [address], [facility], [address] [place] [address] Office: [phone]
--- NOTE | 2020-08-29 11:28 | NURSING ---
wound photo: left posterolateral neck
--- NOTE | 2020-08-29 12:16 | OP.PCM_ITS ---
Report of Operation Date of Procedure: 08/29/20 Pre-Operative Diagnosis: Left MRSA neck abscess/cellulitis, Uncontrolled d iabetes Post-Operative Diagnosis: Same Surgery/Procedure Performed:: Incision and drainage/debridement of left neck abscess Type of Anesthesia:: Local Special Medications: Patient is on Vanco and Zosyn IV on the floor for left neck cellulitis Specimen's removed: none Estimated Blood Loss (mL): minimal Description of Procedure: Patient's left neck was prepped draped you in the usual sterile fashion with Betadine. Local anesthesia of 2% lidocaine was used total of 8 cc. A Cruciate incision was made with 11 blade scalpel at the center of the 2 cm to centimeter area that looked like small pustules of purulent material along with debridement of the superficial tissue in the 1.5 cm by 1.5 cm area. Able to express some additional purulent material mixed with blood with pressure for about 5 cc.Did irrigate this area with saline a few times.Tissue was viable/Oozing controlled with pressure. Lahson Sandoval, wound nurse?was going to pack with iodoform. Patient tolerated procedure well. - Complications none
[2020-08-29] MEDS: Lidocaine 2% (20 ml mdv) 20 ML Vial INFILT (12:47)
[2020-08-29 14:08] LABS: Pathologist Review Reviewed
[2020-08-29 16:40] LABS: Bedside Glucose 274 mg/dL (70-110)
[2020-08-29] MEDS: hydrALAZINE 20 MG/ML Vial 10 MG IV (19:33)
[2020-08-29] MEDS: Magnesium Hydroxide 30 ML UDC PO (20:40)
[2020-08-29] MEDS: Ondansetron 4 MG/2 ML Vial IV (20:40)
[2020-08-29] MEDS: Temazepam 15 MG Capsule PO (22:15)
[2020-08-29 22:26] LABS: Bedside Glucose 288 mg/dL (70-110)
[2020-08-29 22:36] LABS: Vancomycin, Trough Level 3.6 ug/mL (5.0-15.0)
[2020-08-30] VITALS (20 sets, daily range): BP systolic 77–181; BP diastolic 45–111; PULSE 89–138; RESP 12–22; TEMP 36.4–37.2; O2SAT 92–100; BMI 33.5
--- NOTE | 2020-08-30 | ABS_PTH ---
PATIENT: CARLOS MONROY LOC: MS3 U#:[id number] AGE/SX: 45/M ROOM: DC317 RE08/28/[address]: Dr. Florin Escoto MD : [id number] BED: 1 DIS: 09/02/2020 SPEC #: [id number] RECD: 09/02/20 07:31 STATUS: BHARATI MACEDO #: [id number] ELISSA: 08/30/20 00:[address]: Constantino Delvalle DEPT: SURGICAL PATHOLOGY RECD BY: Dillon Mtz ENTERED: 09/02/20 08:15 SP TYPE: Abscess OTHR DR: MD Dr. Ever Gonzales DO Dr. James A Slaby, MD Dr. Nicholas F Kotsonis, MD Dr. Robert Leininger, MD Dr. Tamera Robotham, MD No Primary Care Phys Tissues: Neck, NOS Procedures: Surgery Specimen Level IV Comments: @ Ordering doctor for SUIII edited from to @ by SPENCER at 09/02/20 0953 @ Submitting doctor edited from to @ by RGOOD at 09/02/20 0953 HEADER OPERATION: Surgical preparation of posterior neck with incision and drainage PRE-OP DIAGNOSIS: Cellulitis and diabetic abscess of posterior neck TISSUE SUBMITTED: Posterior neck abscess MICROSCOPIC DIAGNOSIS Skin and soft tissue of posterior neck, excision: Dermal marked acute inflammation consistent with abscess. Acute inflammation of epidermis. No evidence of malignancy. See comment. AM:frantz 09/03/2020 COMMENT Clinical correlation is suggested. MICROSCOPIC DESCRIPTION Slides are reviewed. GROSS DESCRIPTION Received in fixative is one container labeled with the patient's name and designated posterior neck abscess. The specimen consists of a piece of skin with underlying tissue measuring 6 x 1.5 cm and up to 3.5 cm in thickness. The skin surface shows discoloration. Director Biomedical Engineering sections are submitted in two cassettes. / SJ:frantz 09/02/20 TC:2 CPT: 55319
--- NOTE | 2020-08-30 02:23 | PCM.RX.CS ---
Consult Pharmacy has been consulted to manage selected antiobiotic: Vancomycin Type of Consult: Follow-up Labs: Sodium 136 mmol/L (136-145) 08/29/20 06:30 Potassium 3.6 mmol/L (3.5-5.1) 08/29/20 06:30 Chloride 102 mmol/L (98-107) 08/29/20 06:30 Carbon Dioxide 27.0 mmol/L (21.0-32.0) 08/29/20 06:30 Anion Gap 7 (5-15) 08/29/20 06:30 BUN 8 mg/dL (7-18) 08/29/20 06:30 Creatinine 0.73 mg/dL (0.70-1.30) 08/29/20 06:30 Est GFR (MDRD) Af Amer 151 mL/min (>60) 08/29/20 06:30 Est GFR (MDRD) Non-Af 125 mL/min (>60) 08/29/20 06:30 BUN/Creatinine Ratio 11.0 RATIO (10-20) 08/29/20 06:30 Glucose 302 mg/dL (74-106) H 08/29/20 06:30 Vancomycin Trough 3.6 ug/mL (5.0-15.0) L 08/29/20 21:12 Microbiology: Microbiology 08/28/20 22:05 Blood Culture (Wb) - No Site/Description Given Blood Culture - Preliminary 08/29/20 02:02 Abs - Neck Gram Stain - Final Goal Trough: 15-20 mcg/mL Pharmacy Plan for Drug Dosing: Pharmacy Service will continue to monitor and adjust dosing as required. TROUGH 3.6 REDRAW IN MORNING BEFORE NEXT DOSE TO VERIFY Follow-Up Labs: Trough Vancomycin Labs to be done on [date and time ordered]: 08/30 @ 0186
[2020-08-30] MEDS: oxyCODONE 5 MG Tablet PO (04:13)
[2020-08-30 05:50] LABS: Hematocrit 41.5 % (40-54); Hemoglobin 13.2 g/dL (13.0-16.5); Mean Corp Hgb Conc 31.8 g/dL (32-36); Mean Corpuscular Hgb 27.1 pg (27.0-32.0); Mean Corpuscular Volume 85.2 fL (80-94); Mean Platelet Vol. 10.8 fl (6.2-12.0); Platelet Count 220 K/mm3 (150-450); RBC Distribution Width CV 11.9 % (11.6-14.6); RBC Distribution Width SD 37.3 fl (35.1-43.9); Red Blood Count 4.87 M/mm3 (4.6-6.2); White Blood Count 16.7 K/mm3 (4.4-11.0)
[2020-08-30 06:06] LABS: Anion Gap 6 (5-15); BUN 10 mg/dL (7-18); BUN/Creat Ratio 15.4 RATIO (10-20); Calcium,Total 8.4 mg/dL (8.5-10.1); Chloride 101 mmol/L (98-107); Creatinine, Serum 0.65 mg/dL (0.70-1.30); EST Glomerular Filtration Rate 142 mL/min (>60); Est Glom Filt Rate - Afr Amer 172 mL/min (>60); Estimated Creatinine Clearance 179.91 ml/min; Glucose 273 mg/dL (74-106); Magnesium 2.3 mg/dL (1.6-2.6); Potassium 3.7 mmol/L (3.5-5.1); Sodium Level 133 mmol/L (136-145)
[2020-08-30 06:09] LABS: Vancomycin, Trough Level 5.3 ug/mL (5.0-15.0)
[2020-08-30] MEDS: Insulin Lispro 100 UNIT/ML INSULN.PEN SC ×4 (06:26→22:06)
[2020-08-30] MEDS: Magnesium Hydroxide 30 ML UDC PO (06:37)
[2020-08-30] MEDS: Acetaminophen 325 MG Tablet 650 MG PO (06:37)
[2020-08-30 06:50] LABS: Bedside Glucose 245 mg/dL (70-110)
--- NOTE | 2020-08-30 07:35 | PN_ITS ---
Patient Problems: Active and Suspected Problems Cellulitis (Acute) Sepsis (Acute) Diabetes mellitus, type II (Acute) Cellulitis and abscess of neck (Acute) Reason for Visit: Left posterior neck cellulitis with abscess Subjective: Patient underwent incision and drainage/debridement of left neck abscess Dr. Fong on 07/29/2020. Wound examination this morning however demonstrated an area of pustules surrounding where the incision was placed and patient neck is more indurated compared to previously. Case was discussed with Dr. Adorno plan is to consult plastic surgery for more extensive I&D. Patient blood cultures also positive for staph aureus. Currently on vancomycin. Consult was placed infectious disease. Objective: GENERAL: cooperative HEENT: Atraumatic; EYES; Anicteric, Normal Conjunctiva NECK; surgical packing?left posterior side of the neck RESPIRATORY: Diminished to auscultation CARDIOVASCULAR: Regular S1 S2, GI: soft, normoactive bowel sounds, : No Renal angle tenderness; EXTREMITIES: No edema, no clubbing, MUSCULOSKELETAL: no muscle waisting NEURO: Awake; no lateralizing signs. SKIN: As described above PSYCH; Flat affect Vitals/I&O's: Vital Signs Temp Pulse Resp BP Pulse Ox 97.6 F L 103 H 16 160/80 H 95 08/30/20 04:00 08/30/20 04:01 08/30/20 04:00 08/30/20 04:00 08/30/20 04:00 Oxygen Delivery Method Room Air Weight: 124.738 kg Body Mass Index (BMI) 32.5 Intake and Output for Last 24 Hours 08/28/20 08/29/20 08/30/20 23:59 23:59 23:59 Intake Total 1000 / 1000 3308.33 / 3308.33 1284.17 / 1284.17 Output Total 525 / 525 Balance 1000 / 1000 2783.33 / 2783.33 1284.17 / 1284.17 Microbiology Past 72 Hours 08/28/20 22:05 Blood Culture (Wb) - No Site/Description Given Blood Culture - Preliminary 08/29/20 02:02 Abs - Neck Gram Stain - Final Laboratory Results 08/29/20 06:30: Diff Path Review Reviewed 08/29/20 06:30: Sodium 136, Potassium 3.6, Chloride 102, Carbon Dioxide 27.0, Anion Gap 7, BUN 8, Creatinine 0.73, Estim Creat Clear Calc 160.19, Est GFR (MDRD) Af Amer 151, Est GFR (MDRD) Non-Af 125, BUN/Creatinine Ratio 11.0, Glucose 302 H, Calcium 8.3 L, Total Bilirubin 1.10 H, AST 8 L, ALT 26, Alkaline Phosphatase 89, Total Protein 6.9, Albumin 2.9 L, Globulin 4.0, Albumin/Globulin Ratio 0.7 L, TSH 1.27, Free T4 1.23 08/29/20 10:23: POC Glucose 296 H 08/29/20 16:05: POC Glucose 274 H 08/29/20 21:12: Vancomycin Trough 3.6 L 08/29/20 22:11: POC Glucose 288 H 08/29/20 : Magnesium 2.1 08/29/20 : Hemoglobin A1c 11.8 H 08/30/20 05:30: WBC 16.7 H, RBC 4.87, Hgb 13.2, Hct 41.5, MCV 85.2, MCH 27.1, MCHC 31.8 L, RDW Std Deviation 37.3, RDW Coeff of [place] 11.9, Plt Count 220, MPV 10.8 08/30/20 05:30: Sodium 133 L, Potassium 3.7, Chloride 101, Carbon Dioxide 26.0, Anion Gap 6, BUN 10, Creatinine 0.65 L, Estim Creat Clear Calc 179.91, Est GFR (MDRD) Af Amer 172, Est GFR (MDRD) Non-Af 142, BUN/Creatinine Ratio 15.4, Glucose 273 H, Calcium 8.4 L, Magnesium 2.3 08/30/20 05:30: Vancomycin Trough 5.3 08/30/20 06:24: POC Glucose 245 H Current Medications Acetaminophen (Acetaminophen 325 Mg Tablet) 650 mg PO Q6H PRN PRN PRN Reason: Pain Score 1-10/Temp > 100.7 F Last Admin: 08/30/20 06:37 Dose: 650 mg Documented by: Al Hydroxide/Mg Hydroxide (Mag Hydrox/Al Hydrox/Simeth 30 Ml Udc) 30 ml PO Q6H PRN PRN PRN Reason: Gastric Burning Albuterol Sulfate (Albuterol 2.5 Mg/3 Ml Vial.Neb.) 2.5 mg INHALATION Q2H PRN PRN PRN Reason: Dyspnea, wheezing Dextrose (Dextrose 50%-Water 25 Gm/50 Ml Disp.Syrin) 0 gm IV X1 PRN; Protocol PRN Reason: Hypoglycemia Enoxaparin Sodium (Enoxaparin 40 Mg/0.4 Ml Syringe) 40 mg SC DAILY [facility] Last Admin: 08/29/20 10:21 Dose: Not Given Documented by: Famotidine (Famotidine 20 Mg Tablet) 20 mg PO BID [facility] Last Admin: 08/29/20 22:15 Dose: 20 mg Documented by: Glucagon (Glucagon 1 Mg/Ml Syringe) 1 mg IM .X1 PRN PRN Reason: Hypoglycemia Guaifenesin (Guaifenesin 10 Ml Udc (200mg/10ml)) 20 ml PO Q4H PRN PRN PRN Reason: COUGH Hydralazine HCl (Hydralazine 20 Mg/Ml Vial) 10 mg IV Q4H PRN PRN PRN Reason: SBP > 160 Last Admin: 08/29/20 19:33 Dose: 10 mg Documented by: Sodium Chloride () 1,000 mls @ 125 mls/hr IV .Q8H [facility] Last Infusion: 08/30/20 06:28 Dose: 0 mls/hr Documented by: Piperacillin Sod/Tazobactam (Sod 3.375 gm/ Sodium Chloride) 50 mls @ 12.5 mls/hr IV Q8 [facility] Last Admin: 08/30/20 06:26 Dose: 12.5 mls/hr Documented by: Vancomycin IV Pharmacy to Dose (1 each/ Sodium Chloride) 500 mls @ 250 mls/hr IV X1 PRN; Protocol PRN Reason: Rx to Dose Vancomycin HCl 1,500 mg/ (Sodium Chloride) 530 mls @ 250 mls/hr IV Q8H [facility] Last Admin: 08/30/20 06:26 Dose: 250 mls/hr Documented by: Insulin Glargine (Insulin Glargine 100 Units/Ml Pen) 10 units SC BID [facility] Last Admin: 08/29/20 22:15 Dose: 10 units Documented by: Insulin Human Lispro (Insulin Lispro 100 Unit/Ml Insuln.Pen) 0 unit SC ACHS [facility]; Protocol Last Admin: 08/30/20 06:26 Dose: 3 u Documented by: Lisinopril (Lisinopril 10 Mg Tablet) 10 mg PO DAILY [facility] Last Admin: 08/29/20 08:15 Dose: 10 mg Documented by: Magnesium Hydroxide (Magnesium Hydroxide 30 Ml Udc) 30 ml PO DAILY PRN PRN PRN Reason: Constipation Last Admin: 08/30/20 06:37 Dose: 30 ml Documented by: Morphine Sulfate (Morphine 2 Mg/Ml Syringe) 2 mg IV Q3H PRN PRN PRN Reason: Pain Score 6-10 Last Admin: 08/29/20 11:59 Dose: 2 mg Documented by: Ondansetron HCl (Ondansetron 4 Mg/2 Ml Vial) 4 mg IV Q8H PRN PRN PRN Reason: NAUSEA/VOMITING Last Admin: 08/29/20 20:40 Dose: 4 mg Documented by: Oxycodone HCl (Oxycodone 5 Mg Tablet) 5 mg PO Q4H PRN PRN PRN Reason: Pain Score 4-5 Last Admin: 08/30/20 04:13 Dose: 5 mg Documented by: Prochlorperazine Edisylate (Prochlorperazine 10 Mg/2 Ml Vial) 5 mg IV Q4H PRN PRN PRN Reason: Breakthrough nausea/vomiting Psyllium Hydrophilic Mucilloid (Psyllium 1 Packet) 1 packet PO DAILY PRN PRN PRN Reason: Constipation Senna/Docusate Sodium (Senna/Docusate Sodium 1 Tablet) 2 tablet PO BID PRN PRN PRN Reason: Constipation Sodium Chloride (0.9% Saline Lock 10 Ml Syringe) 10 - 40 ml IV UD PRN PRN Reason: SALINE FLUSH Last Admin: 08/29/20 11:59 Dose: 10 ml Documented by: Temazepam (Temazepam 15 Mg Capsule) 15 mg PO QHS PRN PRN PRN Reason: INSOMNIA Last Admin: 08/29/20 22:15 Dose: 15 mg Documented by: Throat Lozenges (Benzocaine/Menthol 1 Lozenge) 1 lozenge MUCOUS MEM Q2H PRN PRN PRN Reason: SORE THROAT STROKE Vital Signs/Narrative: Vital Signs Temp Pulse Resp BP Pulse Ox 08/30/20 04:01 103 H 08/30/20 04:00 97.6 F L 102 H 16 160/80 H 95 Medical Necessity - Tobacco Use Smoking Status: Never smoker Tobacco Use: Non-smoker Assessment/Plan All Active Problems Cellulitis (Acute) Sepsis (Acute) Diabetes mellitus, type II (Acute) Cellulitis and abscess of neck (Acute) Patient is a 45-year-old gentleman who presented with swelling involving the left side of the neck 1. Left Posterior neck cellulitis ?Patient admitted to regular nursing floor started on broad-spectrum antibiotic therapy with vancomycin and Zosyn. CT of the neck obtained on admission demonstrated inflammation and edema without a discrete abscess Within the subcutaneous tissues of the left posterior neck,. Likely cellulitis. Consult placed to general surgery -08/30/2020atient underwent incision and drainage/debridement of left neck abscess Dr. Fong on 07/29/2020. Wound examination this morning however demonstrated an area of pustules surrounding where the incision was placed and patient neck is more indurated compared to previously. Case was discussed with Dr. Adorno plan is to consult plastic surgery for more extensive I&D. Patient blood cultures also positive for staph aureus. Currently on vancomycin. Consult was placed infectious disease. 2. New onset diabetes mellitus type 2 Order hemoglobin A1c. Placed on long acting insulin, Accu-Cheks a.c. and at bedtime and covered with sliding scale insulin she was also placed on 1800 ADA diet and consult placed to diabetic education -08/30/2020; Hemoglobin A1c was 11.2. Blood glucose levels not well controlled. Adjusted doses of long-acting insulin and added scheduled short acting insulin 3. Essential hypertension - newly diagnosed; was started on lisinopril -08/30/2020; patient blood control still not optimal adjusted meant 4. Enlarging heterogeneous thyroid Patient to undergo ultrasound of the thyroid as outpatient following resolution of her left neck 5. Obesity with BMI of 33 ?Weight loss advised 6. DVT prophylaxis ?[facility] Inpatient E&M: [id number] [facility] Hosp L3
--- NOTE | 2020-08-30 08:46 | PCM.RX.CS ---
Consult Pharmacy has been consulted to manage selected antiobiotic: Vancomycin Type of Consult: Follow-up Suspected Infection: Sepsis, Skin/Soft tissue Prior Doses of Antibiotics Received/Current Regimen: currently on 1500mg IV q8h Labs: Sodium 133 mmol/L (136-145) L 08/30/20 05:30 Potassium 3.7 mmol/L (3.5-5.1) 08/30/20 05:30 Chloride 101 mmol/L (98-107) 08/30/20 05:30 Carbon Dioxide 26.0 mmol/L (21.0-32.0) 08/30/20 05:30 Anion Gap 6 (5-15) 08/30/20 05:30 BUN 10 mg/dL (7-18) 08/30/20 05:30 Creatinine 0.65 mg/dL (0.70-1.30) L 08/30/20 05:30 Est GFR (MDRD) Af Amer 172 mL/min (>60) 08/30/20 05:30 Est GFR (MDRD) Non-Af 142 mL/min (>60) 08/30/20 05:30 BUN/Creatinine Ratio 15.4 RATIO (10-20) 08/30/20 05:30 Glucose 273 mg/dL (74-106) H 08/30/20 05:30 Vancomycin Trough 5.3 ug/mL (5.0-15.0) 08/30/20 05:30 Microbiology: Microbiology 08/28/20 22:05 Blood Culture (Wb) - No Site/Description Given Blood Culture - Preliminary Staphylococcus aureus 08/29/20 02:02 Abs - Neck Gram Stain - Final Weight used for dosin.7 kg Estimated Creatinine Clearance: 180ml/min Goal Trough: 15-20 mcg/mL Pharmacy Plan for Drug Dosing: The vanc trough drawn before this morning's dose was 5.3. This confirms the low trough of 3.6 drawn last night was correct. Will increase next dose to 2000mg IV q8h and start a couple hours earlier than the current schedule due to the low trough. This will also schedule the vanc at different times than the Zosyn which is also being given q8h. Will repeat a trough level before the 4th new dose tomorrow. Pharmacy Service will continue to monitor and adjust dosing as required. Follow-Up Labs: Trough Vancomycin Labs to be done on [date and time ordered]: 08/31/20 11:30
[2020-08-30] MEDS: hydrALAZINE 20 MG/ML Vial 10 MG IV (09:08)
[2020-08-30] MEDS: Senna/Docusate Sodium 1 Tablet 2 TABLET PO (09:13)
[2020-08-30] MEDS: Lisinopril 10 MG Tablet PO (09:13)
[2020-08-30] MEDS: Famotidine 20 MG Tablet PO ×2 (09:13→22:08)
--- NOTE | 2020-08-30 09:34 | PCM.PN.SRG ---
Patient Problems: Active and Suspected Problems Cellulitis (Acute) Sepsis (Acute) Diabetes mellitus, type II (Acute) Cellulitis and abscess of neck (Acute) - Physical Exam Vitals/I&O's: Vital Signs Temp Pulse Resp BP Pulse Ox 97.6 F L 100 16 170/99 H 98 08/30/20 09:07 08/30/20 09:08 08/30/20 09:07 08/30/20 09:08 08/30/20 09:07 Oxygen Delivery Method Room Air Weight: 275 lb Body Mass Index (BMI) 32.5 Intake and Output for Last 24 Hours 08/28/20 08/29/20 08/30/20 23:59 23:59 23:59 Intake Total 1000 / 1000 3308.33 / 3308.33 1814.17 / 1814.17 Output Total 525 / 525 Balance 1000 / 1000 2783.33 / 2783.33 1814.17 / 1814.17 Microbiology Past 72 Hours 08/28/20 22:05 Blood Culture (Wb) - No Site/Description Given Blood Culture - Preliminary Staphylococcus aureus 08/29/20 02:02 Abs - Neck Gram Stain - Final Laboratory Results 08/29/20 06:30: Diff Path Review Reviewed 08/29/20 10:23: POC Glucose 296 H 08/29/20 16:05: POC Glucose 274 H 08/29/20 21:12: Vancomycin Trough 3.6 L 08/29/20 22:11: POC Glucose 288 H 08/30/20 05:30: WBC 16.7 H, RBC 4.87, Hgb 13.2, Hct 41.5, MCV 85.2, MCH 27.1, MCHC 31.8 L, RDW Std Deviation 37.3, RDW Coeff of [place] 11.9, Plt Count 220, MPV 10.8 08/30/20 05:30: Sodium 133 L, Potassium 3.7, Chloride 101, Carbon Dioxide 26.0, Anion Gap 6, BUN 10, Creatinine 0.65 L, Estim Creat Clear Calc 179.91, Est GFR (MDRD) Af Amer 172, Est GFR (MDRD) Non-Af 142, BUN/Creatinine Ratio 15.4, Glucose 273 H, Calcium 8.4 L, Magnesium 2.3 08/30/20 05:30: Vancomycin Trough 5.3 08/30/20 06:24: POC Glucose 245 H Current Medications Acetaminophen (Acetaminophen 325 Mg Tablet) 650 mg PO Q6H PRN PRN PRN Reason: Pain Score 1-10/Temp > 100.7 F Last Admin: 08/30/20 06:37 Dose: 650 mg Documented by: Al Hydroxide/Mg Hydroxide (Mag Hydrox/Al Hydrox/Simeth 30 Ml Udc) 30 ml PO Q6H PRN PRN PRN Reason: Gastric Burning Albuterol Sulfate (Albuterol 2.5 Mg/3 Ml Vial.Neb.) 2.5 mg INHALATION Q2H PRN PRN PRN Reason: Dyspnea, wheezing Dextrose (Dextrose 50%-Water 25 Gm/50 Ml Disp.Syrin) 0 gm IV X1 PRN; Protocol PRN Reason: Hypoglycemia Enoxaparin Sodium (Enoxaparin 40 Mg/0.4 Ml Syringe) 40 mg SC DAILY [facility] BEDS AT [facility] Last Admin: 08/30/20 09:17 Dose: Not Given Documented by: Famotidine (Famotidine 20 Mg Tablet) 20 mg PO BID [facility] 234 BEDS AT [facility] Last Admin: 08/30/20 09:13 Dose: 20 mg Documented by: Glucagon (Glucagon 1 Mg/Ml Syringe) 1 mg IM .X1 PRN PRN Reason: Hypoglycemia Guaifenesin (Guaifenesin 10 Ml Udc (200mg/10ml)) 20 ml PO Q4H PRN PRN PRN Reason: COUGH Hydralazine HCl (Hydralazine 20 Mg/Ml Vial) 10 mg IV Q4H PRN PRN PRN Reason: SBP > 160 Last Admin: 08/30/20 09:08 Dose: 10 mg Documented by: Sodium Chloride () 1,000 mls @ 125 mls/hr IV .Q8H [facility] 234 BEDS AT [facility] Last Infusion: 08/30/20 06:28 Dose: 0 mls/hr Documented by: Piperacillin Sod/Tazobactam (Sod 3.375 gm/ Sodium Chloride) 50 mls @ 12.5 mls/hr IV Q8 [facility] 234 BEDS AT [facility] Last Admin: 08/30/20 06:26 Dose: 12.5 mls/hr Documented by: Vancomycin IV Pharmacy to Dose (1 each/ Sodium Chloride) 500 mls @ 250 mls/hr IV X1 PRN; Protocol PRN Reason: Rx to Dose Vancomycin HCl 2,000 mg/ (Sodium Chloride) 540 mls @ 250 mls/hr IV Q8H [facility]CLUDE 234 BEDS AT THE [facility] Insulin Glargine (Insulin Glargine 100 Units/Ml Pen) 10 units SC BID [facility] 234 BEDS AT [facility] Last Admin: 08/30/20 09:14 Dose: 10 units Documented by: Insulin Human Lispro (Insulin Lispro 100 Unit/Ml Insuln.Pen) 0 unit SC ACHS [facility] 234 BEDS AT [facility]; Protocol Last Admin: 08/30/20 06:26 Dose: 3 u Documented by: Lisinopril (Lisinopril 10 Mg Tablet) 10 mg PO DAILY [facility]CLUDE 234 BEDS AT [facility] Last Admin: 08/30/20 09:13 Dose: 10 mg Documented by: Magnesium Hydroxide (Magnesium Hydroxide 30 Ml Udc) 30 ml PO DAILY PRN PRN PRN Reason: Constipation Last Admin: 08/30/20 06:37 Dose: 30 ml Documented by: Morphine Sulfate (Morphine 2 Mg/Ml Syringe) 2 mg IV Q3H PRN PRN PRN Reason: Pain Score 6-10 Last Admin: 08/29/20 11:59 Dose: 2 mg Documented by: Ondansetron HCl (Ondansetron 4 Mg/2 Ml Vial) 4 mg IV Q8H PRN PRN PRN Reason: NAUSEA/VOMITING Last Admin: 08/29/20 20:40 Dose: 4 mg Documented by: Oxycodone HCl (Oxycodone 5 Mg Tablet) 5 mg PO Q4H PRN PRN PRN Reason: Pain Score 4-5 Last Admin: 08/30/20 04:13 Dose: 5 mg Documented by: Prochlorperazine Edisylate (Prochlorperazine 10 Mg/2 Ml Vial) 5 mg IV Q4H PRN PRN PRN Reason: Breakthrough nausea/vomiting Psyllium Hydrophilic Mucilloid (Psyllium 1 Packet) 1 packet PO DAILY PRN PRN PRN Reason: Constipation Senna/Docusate Sodium (Senna/Docusate Sodium 1 Tablet) 2 tablet PO BID PRN PRN PRN Reason: Constipation Last Admin: 08/30/20 09:13 Dose: 2 tablet Documented by: Sodium Chloride (0.9% Saline Lock 10 Ml Syringe) 10 - 40 ml IV UD PRN PRN Reason: SALINE FLUSH Last Admin: 08/29/20 11:59 Dose: 10 ml Documented by: Temazepam (Temazepam 15 Mg Capsule) 15 mg PO QHS PRN PRN PRN Reason: INSOMNIA Last Admin: 08/29/20 22:15 Dose: 15 mg Documented by: Throat Lozenges (Benzocaine/Menthol 1 Lozenge) 1 lozenge MUCOUS MEM Q2H PRN PRN PRN Reason: SORE THROAT Medical Necessity - Tobacco Use Smoking Status: Never smoker Tobacco Use: Non-smoker Assessment/Plan All Active Problems Cellulitis (Acute) Sepsis (Acute) Diabetes mellitus, type II (Acute) Cellulitis and abscess of neck (Acute) 45-year-old male with left neck cellulitis/abscess s/p I&D-MRSA, sepsis, uncontrolled diabetes, bacteremia 1. Pt neck looks worse with spreading pustules from the area that was originally I&D'd at bedside. Will c/s plastics as he will likely need debridement in OR. 2. Diabetes?blood sugar control per primary.Encourage patient to check blood sugars regularly at home 3. bacteremia- 1/2 +SA Ro Fong M.D. Pager: [phone] [facility] [address] [place] [address], [address] [place] [id number] Office: [phone]
--- NOTE | 2020-08-30 09:45 | NURSING ---
wound photo: left posterior neck
[2020-08-30] MEDS: Insulin Lispro 100 UNIT/ML INSULN.PEN 10 UNIT SC ×2 (11:47→18:41)
[2020-08-30] MEDS: 0.9% Normal Saline 1,000 ML 125 ML IV ×2 (11:50→18:57)
[2020-08-30 12:20] LABS: Bedside Glucose 309 mg/dL (70-110)
--- NOTE | 2020-08-30 12:28 | ECHOCS_ITS ---
Reason For Study: Murmur Procedure This was a 2D Doppler, Color Flow transthoracic echocardiogram. The study was technically difficult. Contrast injection was performed. Patient scanned supine due to recent surgery on neck wound. Exam performed portable in ICU/CCU. Left Ventricle Normal LV size. The estimated ejection fraction is 55 %. Normal diastology for age. No regional wall motion abnormalities noted. Right Ventricle Normal RV size. Normal systolic function. Atria Normal left atrium. Normal right atrium. No doppler evidence for ASD. Mitral Valve There is no mitral valve stenosis. No mitral valve insufficiency. Tricuspid Valve There is no tricuspid stenosis. Unable to estimate RV systolic pressure due to insufficient tricuspid regurgitant envelope. Aortic Valve possible bicuspid aortic valve. There is no aortic stenosis. No aortic valve insufficiency. Pulmonic Valve There is no pulmonic valvular stenosis. No pulmonic valve insufficiency. Great Vessels Normal aortic root. Pericardium/Pleural No pericardial effusion. Medication Diluted definity 3ml given slow IV push to enhance endocardial definition. MMode/2D Measurements & Calculations LVIDd: 5.3 cm IVSd: 1.3 cm LA dimension: 4.0 cm LVIDs: 3.4 cm LVPWd: 1.7 cm FS: 35.6 % LAV(MOD-bp): 54.7 ml LA A4 area: 20.1 cm2 RA A4 area: 15.0 cm2 LAV(MOD-bp) Indexed: 21.3 ml/m2 LAV(MOD-sp2): 57.1 ml LAV(MOD-sp4): 53.0 ml Time Measurements MV dec time: 0.23 sec Doppler Measurements & Calculations MV E max tj: 103.1 cm/sec Lat Peak E' Tj: 13.0 cm/sec Med Peak E' Tj: 10.4 cm/sec MV A max tj: 75.5 cm/sec E/E' lat: 7.9 E/E' med: 9.9 MV E/A: 1.4 MV V2 max: 96.4 cm/sec MV P1/2t max tj: 97.7 cm/sec Ao V2 max: 142.5 cm/sec MV max P.7 mmHg MV P1/2t: 86.4 msec Ao max P.1 mmHg MV V2 mean: 57.6 cm/sec MV dec slope: 331.1 cm/sec2 MV mean P.6 mmHg MV V2 VTI: 21.0 cm MVA(P1/2t): 2.5 cm2 LV V1 max: 113.6 cm/sec PA V2 max: 136.8 cm/sec LV V1 max P.2 mmHg ECHO/Echo Complete W/ Contrast Interpretation Summary The estimated ejection fraction is 55 %. Normal diastology for age. possible bicuspid aortic valve Ordering Physician: Darius Tidwell Referring Physician: Bonnie PCP Performed By: Bret Guy RCS
--- NOTE | 2020-08-30 13:35 | PN.ID_ITS ---
Patient Problems: Active and Suspected Problems Cellulitis (Acute) Sepsis (Acute) Diabetes mellitus, type II (Acute) Cellulitis and abscess of neck (Acute) - Physical Exam Vitals/I&O's: Vital Signs Temp Pulse Resp BP Pulse Ox 99.0 F 106 H 16 155/85 H 97 08/30/20 11:58 08/30/20 11:58 08/30/20 11:58 08/30/20 11:58 08/30/20 11:58 Oxygen Delivery Method Room Air Weight: 124.738 kg Body Mass Index (BMI) 33.5 Intake and Output for Last 24 Hours 08/28/20 08/29/20 08/30/20 23:59 23:59 23:59 Intake Total 1000 / 1000 3308.33 / 3308.33 1870.42 / 1870.42 Output Total 525 / 525 Balance 1000 / 1000 2783.33 / 2783.33 1870.42 / 1870.42 Microbiology Past 72 Hours 08/30/20 10:55 Mucosa - Nose SARS-CoV-2 Antigen (Rapid) - Final 08/29/20 02:02 Abs - Neck Gram Stain - Final 08/29/20 02:02 Abs - Neck Wound Culture - Preliminary Staphylococcus aureus 08/28/20 22:05 Blood Culture (Wb) - No Site/Description Given Blood Culture - Preliminary Staphylococcus aureus Laboratory Results 08/29/20 06:30: Diff Path Review Reviewed 08/29/20 16:05: POC Glucose 274 H 08/29/20 21:12: Vancomycin Trough 3.6 L 08/29/20 22:11: POC Glucose 288 H 08/30/20 05:30: WBC 16.7 H, RBC 4.87, Hgb 13.2, Hct 41.5, MCV 85.2, MCH 27.1, MCHC 31.8 L, RDW Std Deviation 37.3, RDW Coeff of Keya 11.9, Plt Count 220, MPV 10.8 08/30/20 05:30: Sodium 133 L, Potassium 3.7, Chloride 101, Carbon Dioxide 26.0, Anion Gap 6, BUN 10, Creatinine 0.65 L, Estim Creat Clear Calc 179.91, Est GFR (MDRD) Af Amer 172, Est GFR (MDRD) Non-Af 142, BUN/Creatinine Ratio 15.4, Glucose 273 H, Calcium 8.4 L, Magnesium 2.3 08/30/20 05:30: Vancomycin Trough 5.3 08/30/20 06:24: POC Glucose 245 H 08/30/20 11:45: POC Glucose 309 H Current Medications Acetaminophen (Acetaminophen 325 Mg Tablet) 650 mg PO Q6H PRN PRN PRN Reason: Pain Score 1-10/Temp > 100.7 F Last Admin: 08/30/20 06:37 Dose: 650 mg Documented by: Al Hydroxide/Mg Hydroxide (Mag Hydrox/Al Hydrox/Simeth 30 Ml Udc) 30 ml PO Q6H PRN PRN PRN Reason: Gastric Burning Albuterol Sulfate (Albuterol 2.5 Mg/3 Ml Vial.Neb.) 2.5 mg INHALATION Q2H PRN PRN PRN Reason: Dyspnea, wheezing Dextrose (Dextrose 50%-Water 25 Gm/50 Ml Disp.Syrin) 0 gm IV X1 PRN; Protocol PRN Reason: Hypoglycemia Enoxaparin Sodium (Enoxaparin 40 Mg/0.4 Ml Syringe) 40 mg SC DAILY [facility] Last Admin: 08/30/20 09:17 Dose: Not Given Documented by: Famotidine (Famotidine 20 Mg Tablet) 20 mg PO BID [facility] Last Admin: 08/30/20 09:13 Dose: 20 mg Documented by: Glucagon (Glucagon 1 Mg/Ml Syringe) 1 mg IM .X1 PRN PRN Reason: Hypoglycemia Guaifenesin (Guaifenesin 10 Ml Udc (200mg/10ml)) 20 ml PO Q4H PRN PRN PRN Reason: COUGH Hydralazine HCl (Hydralazine 20 Mg/Ml Vial) 10 mg IV Q4H PRN PRN PRN Reason: SBP > 160 Last Admin: 08/30/20 09:08 Dose: 10 mg Documented by: Sodium Chloride () 1,000 mls @ 125 mls/hr IV .Q8H [facility] Last Admin: 08/30/20 11:50 Dose: 125 mls/hr Documented by: Vancomycin IV Pharmacy to Dose (1 each/ Sodium Chloride) 500 mls @ 250 mls/hr IV X1 PRN; Protocol PRN Reason: Rx to Dose Vancomycin HCl 2,000 mg/ (Sodium Chloride) 540 mls @ 250 mls/hr IV Q8H [facility] Last Admin: 08/30/20 11:48 Dose: 250 mls/hr Documented by: Ampicillin Sodium/Sulbactam (Sodium 3 gm/ Sodium Chloride) 112 mls @ 150 mls/hr IV Q6 [facility] Insulin Glargine (Insulin Glargine 100 Units/Ml Pen) 20 units SC BID [facility] Insulin Human Lispro (Insulin Lispro 100 Unit/Ml Insuln.Pen) 0 unit SC ACHS [facility]; Protocol Last Admin: 08/30/20 11:46 Dose: 4 u Documented by: Insulin Human Lispro (Insulin Lispro 100 Unit/Ml Insuln.Pen) 10 unit SC TIDAC [facility] Last Admin: 08/30/20 11:47 Dose: 10 units Documented by: Lisinopril (Lisinopril 10 Mg Tablet) 10 mg PO DAILY [facility] Last Admin: 08/30/20 09:13 Dose: 10 mg Documented by: Magnesium Hydroxide (Magnesium Hydroxide 30 Ml Udc) 30 ml PO DAILY PRN PRN PRN Reason: Constipation Last Admin: 08/30/20 06:37 Dose: 30 ml Documented by: Morphine Sulfate (Morphine 2 Mg/Ml Syringe) 2 mg IV Q3H PRN PRN PRN Reason: Pain Score 6-10 Last Admin: 08/29/20 11:59 Dose: 2 mg Documented by: Ondansetron HCl (Ondansetron 4 Mg/2 Ml Vial) 4 mg IV Q8H PRN PRN PRN Reason: NAUSEA/VOMITING Last Admin: 08/29/20 20:40 Dose: 4 mg Documented by: Oxycodone HCl (Oxycodone 5 Mg Tablet) 5 mg PO Q4H PRN PRN PRN Reason: Pain Score 4-5 Last Admin: 08/30/20 04:13 Dose: 5 mg Documented by: Prochlorperazine Edisylate (Prochlorperazine 10 Mg/2 Ml Vial) 5 mg IV Q4H PRN PRN PRN Reason: Breakthrough nausea/vomiting Psyllium Hydrophilic Mucilloid (Psyllium 1 Packet) 1 packet PO DAILY PRN PRN PRN Reason: Constipation Senna/Docusate Sodium (Senna/Docusate Sodium 1 Tablet) 2 tablet PO BID PRN PRN PRN Reason: Constipation Last Admin: 08/30/20 09:13 Dose: 2 tablet Documented by: Sodium Chloride (0.9% Saline Lock 10 Ml Syringe) 10 - 40 ml IV UD PRN PRN Reason: SALINE FLUSH Last Admin: 08/29/20 11:59 Dose: 10 ml Documented by: Temazepam (Temazepam 15 Mg Capsule) 15 mg PO QHS PRN PRN PRN Reason: INSOMNIA Last Admin: 08/29/20 22:15 Dose: 15 mg Documented by: Throat Lozenges (Benzocaine/Menthol 1 Lozenge) 1 lozenge MUCOUS MEM Q2H PRN PRN PRN Reason: SORE THROAT Medical Necessity - Tobacco Use Smoking Status: Never smoker Tobacco Use: Non-smoker Route of nutrition/ use of supplements: [] Nutritional Intake: [] IV Site: [] Lynn Catheter: [] - Assessment/Plan Antibiotics: [] Assessment/Plan: [] Active and Suspected Problems Cellulitis (Acute) Sepsis (Acute) Diabetes mellitus, type II (Acute) Cellulitis and abscess of neck (Acute) staph aureus bacteremia - pt gone from room. Ordered repeat bcx today and tomorrow, TTE, and narrowed abx to vanc/unasyn. Full consult to follow.
--- NOTE | 2020-08-30 13:40 | CON.PCM_ITS ---
Reason for Consult Date of Consultation: 08/30/20 Reason for Consultation: Diabetic MRSA abscess posterior neck. REFERRING PHYSICIAN: Dr. Fong. MANAGER CLIENT: Dr. Delvalle. History of Present Illness: The patient is a 45 y/o M with a history of diabetes mellitus who presented to the ED on 08/28/20 with increasing redness and swelling and pain in his posterior neck. He noted some fevers at home. He has a tendency to pick at scabs. His posterior neck probably started out as a folliculitis that became secondary infected and developed an abscess. MRSA Wound DNA by PCR was positive. He is currently on Vancomycin and Unasyn. Initial labs showed a WBC of 18.0. It has since improved to 16.7. Lactate was 1.9. HgbA1c is 11.8. CT neck was done on 08/28/20. It showed within the subcutaneous tissues of the left posterior neck, inflammation and edema without a discrete abscess. Likely cellulitis. Enlarged and heterogeneous thyroid diffusely. An initial I&D was done at the bedside. Some pus was expressed. The following day, there was worsening redness, swelling, and pain in his posterior neck as I was asked to evaluate this patient for surgical options for treatment. Past Medical History Past Medical History (Chronic Problems): Chronic Problems HTN (hypertension) (Chronic) Morbid obesity (Chronic) Allergies No Known Allergies Allergy (Verified 08/28/20 21:15) Home Medications: Ambulatory Orders Medication Instructions Recorded NK 08/28/20 Surgical History: - - Vasectomy. 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 Smoking Status: Never smoker Tobacco Use: Non-smoker Alcohol: None Drugs: None - *Family History Maternal History Items: Diabetes Paternal History Items: Cancer Review of Systems Comment: Constitutional: Reports: Anorexia, Fever, Fatigue. Denies: Chills, Malaise, Weakness, Weight Change. HEENT: Reports: Head Aches. Denies: Sinus Congestion, Sinus Drainage. Cardiovascular: Denies: Chest Pain, Palpitations. Respiratory: Denies: Cough, Shortness of breath at rest, Sputum production. Gastrointestinal: Denies: Abdominal Pain, Nausea, Vomiting. Genitourinary: De nies: Dysuria. Musculoskeletal: Reports: Neck Pain. Denies: Joint Pain, Joint Tenderness. Skin: Reports: Skin Changes, Wounds. Denies: Rash. Neurological: Denies: Numbness, Tingling, Focal weakness. Psychiatric: Denies: Anxiety, Depression, Homicidal Ideations, Suicidal Ideations. Hematologic/ Lymphatic: Denies: Easy Bruising, Easy Bleeding Patient Problems: Active and Suspected Problems Cellulitis (Acute) Sepsis (Acute) Diabetes mellitus, type II (Acute) Cellulitis and abscess of neck (Acute) - Physical Exam Vitals/I&O's: General: awake, alert, oriented x 3 and cooperative. HEENT: EOMI, PERRLA. Dry mucous membranes. Neck: Large indurated abscess posterior neck with purulent drainage. Significant erythema. Tender to palpation. Tenderness with range of motion. Some mild generalized adenopathy, probably inflammatory in nature. Significant abscess present. Measures 10 cm. Lungs: Diminished at bases. No wheezing. Abdomen: soft, Nondistended. Extremities: no cyanosis, clubbing, or edema. Neurologic: cranial nerves II-XII grossly normal. Psychiatric: affect appears fatigued, uncomfortable, no acute evidence of depressive or anxiety feelings. Vital Signs Temp Pulse Resp BP Pulse Ox 99.0 F 106 H 16 155/85 H 97 08/30/20 11:58 08/30/20 11:58 08/30/20 11:58 08/30/20 11:58 08/30/20 11:58 Oxygen Delivery Method Room Air Weight: 275 lb 0.003 oz Body Mass Index (BMI) 33.5 Intake and Output for Last 24 Hours 08/28/20 08/29/20 08/30/20 23:59 23:59 23:59 Intake Total 1000 / 1000 3308.33 / 3308.33 1870.42 / 1870.42 Output Total 525 / 525 Balance 1000 / 1000 2783.33 / 2783.33 1870.42 / 1870.42 Microbiology Past 72 Hours 08/30/20 10:55 Mucosa - Nose SARS-CoV-2 Antigen (Rapid) - Final 08/29/20 02:02 Abs - Neck Gram Stain - Final 08/29/20 02:02 Abs - Neck Wound Culture - Preliminary Staphylococcus aureus 08/28/20 22:05 Blood Culture (Wb) - No Site/Description Given Blood Culture - Preliminary Staphylococcus aureus Laboratory Results 08/29/20 06:30: Diff Path Review Reviewed 08/29/20 16:05: POC Glucose 274 H 08/29/20 21:12: Vancomycin Trough 3.6 L 08/29/20 22:11: POC Glucose 288 H 08/30/20 05:30: WBC 16.7 H, RBC 4.87, Hgb 13.2, Hct 41.5, MCV 85.2, MCH 27.1, MCHC 31.8 L, RDW Std Deviation 37.3, RDW Coeff of Keya 11.9, Plt Count 220, MPV 10.8 08/30/20 05:30: Sodium 133 L, Potassium 3.7, Chloride 101, Carbon Dioxide 26.0, Anion Gap 6, BUN 10, Creatinine 0.65 L, Estim Creat Clear Calc 179.91, Est GFR (MDRD) Af Amer 172, Est GFR (MDRD) Non-Af 142, BUN/Creatinine Ratio 15.4, Glucose 273 H, Calcium 8.4 L, Magnesium 2.3 08/30/20 05:30: Vancomycin Trough 5.3 08/30/20 06:24: POC Glucose 245 H 08/30/20 11:45: POC Glucose 309 H Diagnostic Data Soft Tissue Neck CT 08/28/20 21:51 IMPRESSION: Within the subcutaneous tissues of the left posterior neck, inflammation and edema without a discrete abscess. Likely cellulitis. Enlarged and heterogeneous thyroid diffusely. Electronically Signed: Eric Mendes DO at 23:21 EDT Tel , Service support , Echocardiogram 08/30/20 12:28 Interpretation Summary The estimated ejection fraction is 55 %. Normal diastology for age. possible bicuspid aortic valve Ordering Physician: Darius Tidwell Referring Physician: No PCP Performed By: Bret Guy RCS Current Medications Acetaminophen (Acetaminophen 325 Mg Tablet) 650 mg PO Q6H PRN PRN PRN Reason: Pain Score 1-10/Temp > 100.7 F Last Admin: 08/30/20 06:37 Dose: 650 mg Documented by: Al Hydroxide/Mg Hydroxide (Mag Hydrox/Al Hydrox/Simeth 30 Ml Udc) 30 ml PO Q6H PRN PRN PRN Reason: Gastric Burning Albuterol Sulfate (Albuterol 2.5 Mg/3 Ml Vial.Neb.) 2.5 mg INHALATION Q2H PRN PRN PRN Reason: Dyspnea, wheezing Dextrose (Dextrose 50%-Water 25 Gm/50 Ml Disp.Syrin) 0 gm IV X1 PRN; Protocol PRN Reason: Hypoglycemia Enoxaparin Sodium (Enoxaparin 40 Mg/0.4 Ml Syringe) 40 mg SC DAILY [facility] Last Admin: 08/30/20 09:17 Dose: Not Given Documented by: Famotidine (Famotidine 20 Mg Tablet) 20 mg PO BID [facility] Last Admin: 08/30/20 09:13 Dose: 20 mg Documented by: Glucagon (Glucagon 1 Mg/Ml Syringe) 1 mg IM .X1 PRN PRN Reason: Hypoglycemia Guaifenesin (Guaifenesin 10 Ml Udc (200mg/10ml)) 20 ml PO Q4H PRN PRN PRN Reason: COUGH Hydralazine HCl (Hydralazine 20 Mg/Ml Vial) 10 mg IV Q4H PRN PRN PRN Reason: SBP > 160 Last Admin: 08/30/20 09:08 Dose: 10 mg Documented by: Sodium Chloride () 1,000 mls @ 125 mls/hr IV .Q8H [facility] Last Admin: 08/30/20 11:50 Dose: 125 mls/hr Documented by: Vancomycin IV Pharmacy to Dose (1 each/ Sodium Chloride) 500 mls @ 250 mls/hr IV X1 PRN; Protocol PRN Reason: Rx to Dose Vancomycin HCl 2,000 mg/ (Sodium Chloride) 540 mls @ 250 mls/hr IV Q8H [facility] Last Admin: 08/30/20 11:48 Dose: 250 mls/hr Documented by: Ampicillin Sodium/Sulbactam (Sodium 3 gm/ Sodium Chloride) 112 mls @ 150 mls/hr IV Q6 [facility] Insulin Glargine (Insulin Glargine 100 Units/Ml Pen) 20 units SC BID [facility] Insulin Human Lispro (Insulin Lispro 100 Unit/Ml Insuln.Pen) 0 unit SC ACHS [facility]; Protocol Last Admin: 08/30/20 11:46 Dose: 4 u Documented by: Insulin Human Lispro (Insulin Lispro 100 Unit/Ml Insuln.Pen) 10 unit SC TIDAC [facility] Last Admin: 08/30/20 11:47 Dose: 10 units Documented by: Lisinopril (Lisinopril 10 Mg Tablet) 10 mg PO DAILY [facility] Last Admin: 08/30/20 09:13 Dose: 10 mg Documented by: Magnesium Hydroxide (Magnesium Hydroxide 30 Ml Udc) 30 ml PO DAILY PRN PRN PRN Reason: Constipation Last Admin: 08/30/20 06:37 Dose: 30 ml Documented by: Morphine Sulfate (Morphine 2 Mg/Ml Syringe) 2 mg IV Q3H PRN PRN PRN Reason: Pain Score 6-10 Last Admin: 08/29/20 11:59 Dose: 2 mg Documented by: Ondansetron HCl (Ondansetron 4 Mg/2 Ml Vial) 4 mg IV Q8H PRN PRN PRN Reason: NAUSEA/VOMITING Last Admin: 08/29/20 20:40 Dose: 4 mg Documented by: Oxycodone HCl (Oxycodone 5 Mg Tablet) 5 mg PO Q4H PRN PRN PRN Reason: Pain Score 4-5 Last Admin: 08/30/20 04:13 Dose: 5 mg Documented by: Prochlorperazine Edisylate (Prochlorperazine 10 Mg/2 Ml Vial) 5 mg IV Q4H PRN PRN PRN Reason: Breakthrough nausea/vomiting Psyllium Hydrophilic Mucilloid (Psyllium 1 Packet) 1 packet PO DAILY PRN PRN PRN Reason: Constipation Senna/Docusate Sodium (Senna/Docusate Sodium 1 Tablet) 2 tablet PO BID PRN PRN PRN Reason: Constipation Last Admin: 08/30/20 09:13 Dose: 2 tablet Documented by: Sodium Chloride (0.9% Saline Lock 10 Ml Syringe) 10 - 40 ml IV UD PRN PRN Reason: SALINE FLUSH Last Admin: 08/29/20 11:59 Dose: 10 ml Documented by: Temazepam (Temazepam 15 Mg Capsule) 15 mg PO QHS PRN PRN PRN Reason: INSOMNIA Last Admin: 08/29/20 22:15 Dose: 15 mg Documented by: Throat Lozenges (Benzocaine/Menthol 1 Lozenge) 1 lozenge MUCOUS MEM Q2H PRN PRN PRN Reason: SORE THROAT Assessment/Plan All Active Problems Open wound of neck with complication (Acute) MRSA (methicillin resistant Staphylococcus aureus) (Acute) Hemoglobin A1C greater than 9%, indicating poor diabetic control (Acute) Abscess of neck (Acute) Cellulitis (Acute) Sepsis (Acute) Diabetes mellitus, type II (Acute) Cellulitis and abscess of neck (Acute) 1. Large diabetic MRSA abscess posterior neck. 2. Sepsis. 3. MRSA. 4. Diabetes mellitus, uncontrolled, with HgbA1c 11.8. CT Neck reviewed. Continue IV Vancomycin and Unasyn. MRSA Wound DNA by PCR was positive. The abscess is worsening despite a localized I&D procedure at the bedside and IV antibiotics. Patient needs urgent operative intervention today with surgical preparation posterior neck with incision and drainage and excisional debridement diabetic MRSA abscess. There is concern about underlying muscle involvement with the possibility of a necrotizing process that can be potentially life threatening. So surgery needs to be done today to minimize that risk. Surgery will be done under general anesthesia in the prone position. Will leave the wound open and begin postop wound care with Dakin's dressing changes twice a day. Will send tissue to Pathology for analysis to rule out carcinoma and to Microbiology for culture. A positive culture will necessitate antibiotic therapy. HgbA1c is 11.8. 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 Will make referral upon discharge. Encourage range of motion exercises to minimize stiffness. If stiffness develops, can set up PT as outpatient for range of motion exercises. After discharge [facility]. If there is a plateau in the healing process, can proceed with delayed closure with skin grafting. Before proceeding with an elective skin graft, the HgbA1c needs to be less than 8. Patient was informed of the risks and complications of the procedure including alternatives to surgery. These were discussed with the patient personally. Patient voices understanding and wishes to proceed with the current plan of urgent surgery today because of the risk of worsening infection with a possible necrotizing process that can become potentially life threatening. Anticipate increased metabolic demands from the infection. Will check a Prealbumin and encourage nutritional supplementation with protein to help the healing process. We discussed the current risks associated with COVID-19. While it is understood that there is a community spread of COVID-19, the risk of starla COVID-19 while at [facility] ([facility]) is very low; however, the risk cannot be completely mitigated because of the community spread of the disease. We discussed in detail the risk of exposure to and/or potential harm posed by the COVID-19 virus with having a surgery/procedure at this time versus the risk of delaying the surgery/procedure. It is not possible to know either the risk of delaying the surgery or procedure or chance of getting an infection with perfect accuracy, but a joint decision was made to proceed at this time with the scheduled surgery/procedure as indicated on the consent form. Patient was notified that we will need to comply with any screening or testing [facility] wishes to perform or that surgery may be delayed for any positive results. Discussed with the patient that I was tested for COVID-19 on 11/09/19 which was negative and on 11/23/19 which was negative and on 12/07/19 which was negative and on 12/21/19 which was negative and on 01/04/20 which was negative and on 01/25/20 which was negative and on 02/15/20 which was negative and on 03/21/20 which was negative and on 04/11/20 which was negative and on 04/30/20 which was negative. My testing regimen at this time is to be COVID-19 tested every 2 weeks or so. I received the COVID-19 vaccine (Moderna) on 05/08/20 and the second vaccine dose was received on 06/05/20. When I was hospitalized on 07/08/20 I was tested for COVID-19 which was negative. I was also tested for COVID-19 on 07/23/20 which was negative and on 08/19/20 which was negative. Procedure Criteria Procedure Type: Elective COVID Risk Discussion: The surgeon/proceduralist and patient have discussed in detail the risk of exposure to and/or potential harm posed by the COVID-19 virus with having a surgery/procedure at this time versus the risk of delaying the surgery/procedure. It is not possible to know either the risk of delaying the surgery or procedure or chance of getting an infection with perfect accuracy, but a joint decision was made between the patient and the surgeon/proceduralist to proceed at this time with the scheduled surgery/procedure as indicated on the consent form. Inpatient E&M: 53039 Init Hosp L3 - -57 Modifier ICD-10 - L02.11, A49.02, A41.9, E11.9, R73.09
--- NOTE | 2020-08-30 15:11 | CASEMGMT ---
WILI REGAN called insurance company to verify in network HHC or Infusion companies in case of need. Ins # . Spoke with Nan. Pt benefits are the same in and out of network. For providers 125% of medicare allowable amount and 150% for facilities. Pt has a $1000 deductible, coinsurance of 80% and OOP of $1000. Insurance active as of 05/29/20 with no term date and $0 has been met for deductible or OOP. Transferred to [facility] Benefit . HHC in network per Nan are [facility] [phone], [employer] and [facility] [email or web address] (no longer in business). She does not show any Infusion companies in network and specifically searched [facility].
[2020-08-30] MEDS: Lidocaine 1% /Epi 1:100 (20ml) 20 ML Vial (16:00)
--- NOTE | 2020-08-30 16:20 | PCM.OPRPT ---
Report of Operation Date of Procedure: 08/30/20 Pre-Operative Diagnosis: 1. Large diabetic MRSA abscess posterior neck. 2. Sepsis. 3. MRSA. 4. Diabetes mellitus, uncontrolled, with HgbA1c 11.8. Post-Operative Diagnosis: 1. Large diabetic MRSA abscess posterior neck involving underlying muscle. 2. Sepsis. 3. MRSA. 4. Diabetes mellitus, uncontrolled, with HgbA1c 11.8. Surgery/Procedure Performed:: Surgical preparation posterior neck with incision and drainage and excisional debridement diabetic MRSA abscess involving underlying muscle (50 cm2). Description of Surgical Findings:: The patient is a 45 y/o M with a history of diabetes mellitus who presented to the ED on 08/28/20 with increasing redness and swelling and pain in his posterior neck. He noted some fevers at home. He has a tendency to pick at scabs. His posterior neck probably started out as a folliculitis that became secondary infected and developed an abscess. MRSA Wound DNA by PCR was positive. He is currently on Vancomycin and Unasyn. Initial labs showed a WBC of 18.0. It has since improved to 16.7. Lactate was 1.9. HgbA1c is 11.8. CT neck was done on 08/28/20. It showed within the subcutaneous tissues of the left posterior neck, inflammation and edema without a discrete abscess. Likely cellulitis. Enlarged and heterogeneous thyroid diffusely. An initial I&D was done at the bedside. Some pus was expressed. The following day, there was worsening redness, swelling, and pain in his posterior neck as I was asked to evaluate this patient for surgical options for treatment. Patient needs urgent operative intervention today with surgical preparation posterior neck with incision and drainage and excisional debridement diabetic MRSA abscess. There is concern about underlying muscle involvement with the possibility of a necrotizing process that can be potentially life threatening. So surgery needs to be done today to minimize that risk. Surgery will be done under general anesthesia in the prone position. Will leave the wound open and begin postop wound care with Dakin's dressing changes twice a day. Will send tissue to Pathology for analysis to rule out carcinoma and to Microbiology for culture. A positive culture will necessitate antibiotic therapy. Patient was informed of the risks and complications of the procedure including alternatives to surgery. These were discussed with the patient personally. Patient voices understanding and wishes to proceed with the current plan of urgent surgery today because of the risk of worsening infection with a possible necrotizing process that can become potentially life threatening. Size of defect posterior neck - 10 x 5 x 3 cm. visual display associate: None Type of Anesthesia:: General Specimen's removed: Diabetic MRSA abscess posterior neck to Pathology and Microbiology. Drains: None. Estimated Blood Loss (mL): 150 ml. Description of Procedure: Patient was taken to OR in supine position and was placed under general anesthesia. He was then placed in the prone postion. The posterior neck area extending to the ears was prepped and draped in the usual fashion. SCD's were placed for DVT prophylaxis. Perioperative antibiotics were given intravenously. I proceeded with incision and drainage of this complex abscess down into the subcutaneous tissue. Thick pus was encountered which is clinically consistent with MRSA. There was surrounding induration and extensive fat necrosis present that was excised and debrided. The abscess extended to the underlying muscle and was adherent to the muscle. I was concerned about possible necrotic muscle before surgery. The muscle appeared viable with good bleeding. There was moderate bleeding during the procedure about 150 ml. The wound was irrigated with saline and hemostasis was obtained with electrocautery. I then placed gentle pressure on the skin edges and no additional pockets of pus were seen. After hemostasis was obtained with electrocautery, the size of the defect was 10 x 5 x 3 cm or 50 cm2. Some of the tissue was sent to Pathology for analysis to rule out carcinoma and to Microbiology for culture. A positive culture will necessitate antibiotic therapy. Patient already has MRSA. The wound was dressed with Mepitel nonadherent dressing followed by Betadine and Kerlix gauze. Additional dry Kerlix gauze was placed followed by an ABD pad. Tape compression was applied followed by mesh gauze for support. Patient tolerated the procedure well. However there were some issues with ventilation during the end of the surgery. So Anesthesia decided to keep him intubated and will transfer him to the ICU tonight. After his extubation then he can be evaluated for transfer back to Med-Surg. He will keep his head elevated during the initial postoperative period. Will encourage range of motion exercises to minimize stiffness after he is extubated. PT may be necessary. During the healing process, if contracture starts to develop then he would need operative intervention for incision of the scar tissue contracture followed by skin grafting. Anticipate increased metabolic demands from the infection and the surgery. Will check a Prealbumin and encourage nutritional supplementation with protein to help the healing process. Grafts/Implants Used: None. - Complications None. - Admit VTE Documentation VTE Present on Admission: No VTE Mechan Device Prophylaxis: SCD's VTE Pharm Prophylaxis ordered?: Yes Surgery Charges CPT - 53138 ICD-10 - L02.11, A49.02, A41.9, E11.9, R73.09 90349 L02.11, S11.90xA, A49.02, A41.9, E11.9, R73.09
[2020-08-30] MEDS: Propofol 10MG/Ml 1,000 MG/100 ML Bottle 7.5 MG CONT INF ×2 (16:30→19:28)
--- NOTE | 2020-08-30 17:00 | RAD_ITS ---
STUDY: X-RAY CHEST REASON FOR EXAM: Male, 45 years old. intubation TECHNIQUE: Single AP portable view of the chest. COMPARISON: None. FINDINGS: Nasogastric tube terminates in the stomach. Endotracheal tube terminates 8 cm above the joseph. Bibasilar atelectasis. The lungs are otherwise clear. There is no demonstrated pleural abnormality. Normal size heart. Normal mediastinum and mateo. Normal visualized pulmonary arteries. Normal visualized aortic arch and descending thoracic aorta. Normal visualized thoracic spine. Normal visualized ribs, clavicles, and shoulders. There is no demonstrated abnormality of the visualized soft tissue structures of the upper abdomen. RAD/Chest 1 View (Portable) IMPRESSION: 1. Tube position as noted above. 2. Bibasilar atelectasis. Electronically Signed: Carole Campos MD at 17:27 EDT Tel , Service support ,
[2020-08-30 17:16] LABS: Bedside Glucose 374 mg/dL (70-110)
[2020-08-30] MEDS: fentaNYL 100 MCG/2 ML Ampul 50 MCG IV (18:42)
[2020-08-30] MEDS: 0.9% Saline Lock 10 ML Syringe IV ×2 (21:37→23:04)
[2020-08-30 22:30] LABS: Bedside Glucose 333 mg/dL (70-110)
[2020-08-30] MEDS: Propofol 10MG/Ml 1,000 MG/100 ML Bottle 18.7 MG CONT INF (23:03)
[2020-08-30 23:35] LABS: CPK Total, Creatine Kinase 116 U/L (39-308); Triglycerides 185 mg/dL
[2020-08-31] VITALS (24 sets, daily range): BP systolic 97–188; BP diastolic 63–107; PULSE 89–106; RESP 9–26; TEMP 36.1–37; O2SAT 93–98
[2020-08-31] MEDS: 0.9% Normal Saline 1,000 ML 125 ML IV ×2 (03:37→10:24)
[2020-08-31 04:40] LABS: Hematocrit 39.3 % (40-54); Hemoglobin 12.3 g/dL (13.0-16.5); Mean Corp Hgb Conc 31.3 g/dL (32-36); Mean Corpuscular Hgb 27.9 pg (27.0-32.0); Mean Corpuscular Volume 89.1 fL (80-94); Mean Platelet Vol. 11.2 fl (6.2-12.0); Platelet Count 245 K/mm3 (150-450); RBC Distribution Width CV 12.2 % (11.6-14.6); RBC Distribution Width SD 40.4 fl (35.1-43.9); Red Blood Count 4.41 M/mm3 (4.6-6.2); White Blood Count 13.9 K/mm3 (4.4-11.0)
[2020-08-31 05:07] LABS: Anion Gap 5 (5-15); BUN 21 mg/dL (7-18); BUN/Creat Ratio 12.2 RATIO (10-20); Calcium,Total 7.6 mg/dL (8.5-10.1); Chloride 105 mmol/L (98-107); Creatinine, Serum 1.72 mg/dL (0.70-1.30); EST Glomerular Filtration Rate 46 mL/min (>60); Est Glom Filt Rate - Afr Amer 56 mL/min (>60); Estimated Creatinine Clearance 66.19 ml/min; Glucose 274 mg/dL (74-106); Potassium 3.4 mmol/L (3.5-5.1); Prealbumin 7.2 mg/dL (20.0-40.0); Sodium Level 137 mmol/L (136-145)
[2020-08-31] MEDS: TITRATION PARAMETER CHANGE 1 EACH IV (05:57)
--- NOTE | 2020-08-31 06:12 | NURSING ---
1900- at start of shift his propofol. was at 40ml/hr and his fentanyl was at 200ml/ hr
--- NOTE | 2020-08-31 06:27 | NURSING ---
Addendum entered by Christy Borrego 08/31/20 06:54: 08/30/20 Original Note: 2330 drove up from [place], visited for a short while. When the left she took all the pt belongings. Cell phone, wedding band, wallet, keys, and clothing.
--- NOTE | 2020-08-31 06:29 | NURSING ---
0615 pt extubated to 2l nc pt tolerated it well.
--- NOTE | 2020-08-31 06:35 | CON.PCM_ITS ---
Reason for Consult Date of Consultation: 08/31/20 Reason for Consultation: Acute respiratory failure History of Present Illness: The patient is a 45-year-old male, with a history as outlined below, who initially presented to the emergency department on August 28 with left neck cellulitis and abscess formation. On presentation to the emergency department, the patient was noted to have a low-grade fever and was tachycardic and hypertensive. However, he was maintaining appropriate oxygen saturations on room air. Laboratory evaluation revealed an elevated white blood cell count 18,000. Coagulation profile was within normal limits. Chemistry profile was notable for a sodium of 131, potass ium of 3.4 and chloride of 95. Lactate was within normal limits. MRSA screen was positive. Soft tissue neck CT revealed subcutaneous edema in the left posterior neck without discrete abscess. The patient was started on IV fluids and antimicrobials. He was subsequently admitted to the hospital for further management. The patient's hospital course has included evaluation by general surgery and infectious diseases. The patient underwent I&D by general surgery at the bedside on August 29. Over concerns for the possible need for surgical debridement in the OR, general surgery asked that plastic surgery evaluate the patient. Therefore, on August 30, the patient was taken by plastic surgery to the operating room where he underwent surgical I&D and excisional debridement of a neck abscess. Prior to the surgical procedure, the patient was documented to be maintaining appropriate oxygen saturations on room air. Nevertheless, postoperatively, the patient was transferred to the ICU still intubated. Per nursing report, anesthesia services had voiced concerns that the patient may be developing ARDS. However, on my review of the chest imaging, there was no such concern. Past Medical History Past Medical History (Chronic Problems): Chronic Problems HTN (hypertension) (Chronic) Morbid obesity (Chronic) Allergies No Known Allergies Allergy (Verified 08/28/20 21:15) Home Medications: Ambulatory Orders Medication Instructions Recorded NK 08/28/20 Surgical History: - - Vasectomy. 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 Smoking Status: Never smoker Tobacco Use: Non-smoker Alcohol: None Drugs: None - *Family History Maternal History Items: Diabetes Paternal History Items: Cancer Review of Systems Unable to obtain accurate/complete ROS d/t: Due to current intubation and me chanical ventilation status Patient Problems: Active and Suspected Problems Cellulitis (Acute) Sepsis (Acute) Diabetes mellitus, type II (Acute) Cellulitis and abscess of neck (Acute) Objective: The patient's most recent lab work, culture data and imaging studies have all been personally reviewed. - Physical Exam Vitals/I&O's: Vital Signs Temp Pulse Resp BP Pulse Ox 98.2 F 95 12 179/103 H 95 08/31/20 00:00 08/31/20 05:53 08/31/20 05:00 08/31/20 05:00 08/31/20 05:00 Oxygen Delivery Method Mechanical Ventilator Weight: 276 lb 10.882 oz Body Mass Index (BMI) 33.5 Intake and Output for Last 24 Hours 08/29/20 08/30/20 08/31/20 23:59 23:59 23:59 Intake Total 3308.33 / 3308.33 4168.28 / 4197.63 1843.25 / 1843.25 Output Total 525 / 525 2200 / 2200 1200 / 1200 Balance 2783.33 / 2783.33 1968.28 / 1997.63 643.25 / 643.25 General: - - Intubated and mechanically ventilated. Currently tolerating spontaneous mode of mechanical ventilation. HEENT: Atraumatic, PERRLA, Normocephalic Oral: No Gingival or Mucosal Lesions/ Ulcerations, - - Endotracheal tube in place Neck: Supple, No Nodes, Trachea Midline, - - Dressed surgical wound present. Lungs: Normal air movement, No rhonchi, No wheeze, No rales Cardiovascular: Regular rate, Regular Rhythm Abdomen: Bowel Sounds Present, Soft, Non Tender, Obese Extremities: No clubbing, No cyanosis, No edema Skin: No breakdown Musculoskeletal: No Tenderness to Palpation of Joints or Extremities Lymphatic: No Cervical, Supraclavicular, or Inguinal Adenopathy Neurological: Neuro grossly intact, - - Alert and following commands appropriately. Labs (Last 48 Hours) 08/29/20 08/29/20 08/29/20 06:30 06:30 06:43 WBC 15.8 H RBC 5.12 Hgb 14.2 Hct 44.0 MCV 85.9 MCH 27.7 MCHC 32.3 RDW Std Deviation 37.8 RDW Coeff of Key[place] 12.0 Plt Count 207 MPV 11.2 Immature Gran % (Auto) 1.100 H Neut % (Auto) 79.2 H Lymph % (Auto) 9.2 L Grainger % (Auto) 9.6 Eos % (Auto) 0.6 Baso % (Auto) 0.3 Absolute Neuts (auto) 12.5 H Absolute Lymphs (auto) 1.45 Nucleated RBC % 0 [address] Path Review Reviewed Sodium 136 Potassium 3.6 Chloride 102 Carbon Dioxide 27.0 Anion Gap 7 BUN 8 Creatinine 0.73 Estim Creat Clear Calc 160.19 Est GFR (MDRD) Af Amer 151 Est GFR (MDRD) Non-Af 125 BUN/Creatinine Ratio 11.0 Glucose 302 H Hemoglobin A1c Calcium 8.3 L Magnesium Total Bilirubin 1.10 H AST 8 L ALT 26 Alkaline Phosphatase 89 Total Creatine Kinase Total Protein 6.9 Albumin 2.9 L Globulin 4.0 Albumin/Globulin Ratio 0.7 L Prealbumin Triglycerides TSH 1.27 Free T4 1.23 Vancomycin Trough POC Glucose 270 H 08/29/20 08/29/20 08/29/20 10:23 16:05 21:12 WBC RBC Hgb Hct MCV MCH MCHC RDW Std Deviation RDW Coeff of [place] Plt Count MPV Immature Gran % (Auto) Neut % (Auto) Lymph % (Auto) Grainger % (Auto) Eos % (Auto) Baso % (Auto) Absolute Neuts (auto) Absolute Lymphs (auto) Nucleated RBC % Diff Path Review Sodium Potassium Chloride Carbon Dioxide Anion Gap BUN Creatinine Estim Creat Clear Calc Est GFR (MDRD) Af Amer Est GFR (MDRD) Non-Af BUN/Creatinine Ratio Glucose Hemoglobin A1c Calcium Magnesium Total Bilirubin AST ALT Alkaline Phosphatase Total Creatine Kinase Total Protein Albumin Globulin Albumin/Globulin Ratio Prealbumin Triglycerides TSH Free T4 Vancomycin Trough 3.6 L POC Glucose 296 H 274 H 08/29/20 08/29/20 08/29/20 22:11 Unknown Unknown WBC RBC Hgb Hct MCV MCH MCHC RDW Std Deviation RDW Coeff of [place] Plt Count MPV Immature Gran % (Auto) Neut % (Auto) Lymph % (Auto) Grainger % (Auto) Eos % (Auto) Baso % (Auto) Absolute Neuts (auto) Absolute Lymphs (auto) Nucleated RBC % Diff Path Review Sodium Potassium Chloride Carbon Dioxide Anion Gap BUN Creatinine Estim Creat Clear Calc Est GFR (MDRD) Af Amer Est GFR (MDRD) Non-Af BUN/Creatinine Ratio Glucose Hemoglobin A1c 11.8 H Calcium Magnesium 2.1 Total Bilirubin AST ALT Alkaline Phosphatase Total Creatine Kinase Total Protein Albumin Globulin Albumin/Globulin Ratio Prealbumin Triglycerides TSH Free T4 Vancomycin Trough POC Glucose 288 H 08/30/20 08/30/20 08/30/20 05:30 05:30 05:30 WBC 16.7 H RBC 4.87 Hgb 13.2 Hct 41.5 MCV 85.2 MCH 27.1 MCHC 31.8 L RDW Std Deviation 37.3 RDW Coeff of Key[place] 11.9 Plt Count 220 MPV 10.8 Immature Gran % (Auto) Neut % (Auto) Lymph % (Auto) Grainger % (Auto) Eos % (Auto) Baso % (Auto) Absolute Neuts (auto) Absolute Lymphs (auto) Nucleated RBC % Diff Path Review Sodium 133 L Potassium 3.7 Chloride 101 Carbon Dioxide 26.0 Anion Gap 6 BUN 10 Creatinine 0.65 L Estim Creat Clear Calc 179.91 Est GFR (MDRD) Af Amer 172 Est GFR (MDRD) Non-Af 142 BUN/Creatinine Ratio 15.4 Glucose 273 H Hemoglobin A1c Calcium 8.4 L Magnesium 2.3 Total Bilirubin AST ALT Alkaline Phosphatase Total Creatine Kinase Total Protein Albumin Globulin Albumin/Globulin Ratio Prealbumin Triglycerides TSH Free T4 Vancomycin Trough 5.3 POC Glucose 08/30/20 08/30/20 08/30/20 06:24 11:45 17:09 WBC RBC Hgb Hct MCV MCH MCHC RDW Std Deviation RDW Coeff of [place] Plt Count MPV Immature Gran % (Auto) Neut % (Auto) Lymph % (Auto) Grainger % (Auto) Eos % (Auto) Baso % (Auto) Absolute Neuts (auto) Absolute Lymphs (auto) Nucleated RBC % Diff Path Review Sodium Potassium Chloride Carbon Dioxide Anion Gap BUN Creatinine Estim Creat Clear Calc Est GFR (MDRD) Af Amer Est GFR (MDRD) Non-Af BUN/Creatinine Ratio Glucose Hemoglobin A1c Calcium Magnesium Total Bilirubin AST ALT Alkaline Phosphatase Total Creatine Kinase Total Protein Albumin Globulin Albumin/Globulin Ratio Prealbumin Triglycerides TSH Free T4 Vancomycin Trough POC Glucose 245 H 309 H 374 H 08/30/20 08/30/20 08/31/20 22:02 22:59 04:15 WBC 13.9 H RBC 4.41 L Hgb 12.3 L Hct 39.3 L MCV 89.1 MCH 27.9 MCHC 31.3 L RDW Std Deviation 40.4 RDW Coeff of Keya 12.2 Plt Count 245 MPV 11.2 Immature Gran % (Auto) Neut % (Auto) Lymph % (Auto) Grainger % (Auto) Eos % (Auto) Baso % (Auto) Absolute Neuts (auto) Absolute Lymphs (auto) Nucleated RBC % Diff Path Review Sodium Potassium Chloride Carbon Dioxide Anion Gap BUN Creatinine Estim Creat Clear Calc Est GFR (MDRD) Af Amer Est GFR (MDRD) Non-Af BUN/Creatinine Ratio Glucose Hemoglobin A1c Calcium Magnesium Total Bilirubin AST ALT Alkaline Phosphatase Total Creatine Kinase 116 Total Protein Albumin Globulin Albumin/Globulin Ratio Prealbumin Triglycerides 185 TSH Free T4 Vancomycin Trough POC Glucose 333 H 08/31/20 04:15 WBC RBC Hgb Hct MCV MCH MCHC RDW Std Deviation RDW Coeff of [place] Plt Count MPV Immature Gran % (Auto) Neut % (Auto) Lymph % (Auto) Grainger % (Auto) Eos % (Auto) Baso % (Auto) Absolute Neuts (auto) Absolute Lymphs (auto) Nucleated RBC % Diff Path Review Sodium 137 Potassium 3.4 L Chloride 105 Carbon Dioxide 27.0 Anion Gap 5 BUN 21 H Creatinine 1.72 H Estim Creat Clear Calc 66.19 Est GFR (MDRD) Af Amer 56 L Est GFR (MDRD) Non-Af 46 L BUN/Creatinine Ratio 12.2 Glucose 274 H Hemoglobin A1c Calcium 7.6 L Magnesium Total Bilirubin AST ALT Alkaline Phosphatase Total Creatine Kinase Total Protein Albumin Globulin Albumin/Globulin Ratio Prealbumin 7.2 L Triglycerides TSH Free T4 Vancomycin Trough POC Glucose Microbiology 08/30/20 10:55 Mucosa - Nose SARS-CoV-2 Antigen (Rapid) - Final 08/29/20 02:02 Abs - Neck Gram Stain - Final 08/29/20 02:02 Abs - Neck Wound Culture - Preliminary Staphylococcus aureus 08/28/20 22:05 Blood Culture (Wb) - No Site/Description Given Blood Culture - Preliminary Staphylococcus aureus Clinical Impression(s) from Imaging Studies Soft Tissue Neck CT 08/28/20 21:51 IMPRESSION: Within the subcutaneous tissues of the left posterior neck, inflammation and edema without a discrete abscess. Likely cellulitis. Enlarged and heterogeneous thyroid diffusely. Electronically Signed: Eric Mendes DO at 23:21 EDT Tel , Service support , Chest X-Ray 08/30/20 17:00 IMPRESSION: 1. Tube position as noted above. 2. Bibasilar atelectasis. Electronically Signed: Carole Campos MD at 17:27 EDT Tel , Service support , Current Medications Acetaminophen (Acetaminophen 325 Mg Tablet) 650 mg PO Q6H PRN PRN PRN Reason: Pain Score 1-10/Temp > 100.7 F Last Admin: 08/30/20 06:37 Dose: 650 mg Documented by: Al Hydroxide/Mg Hydroxide (Mag Hydrox/Al Hydrox/Simeth 30 Ml Udc) 30 ml PO Q6H PRN PRN PRN Reason: Gastric Burning Albuterol Sulfate (Albuterol 2.5 Mg/3 Ml Vial.Neb.) 2.5 mg INHALATION Q2H PRN PRN PRN Reason: Dyspnea, wheezing Dextrose (Dextrose 50%-Water 25 Gm/50 Ml Disp.Syrin) 0 gm IV X1 PRN; Protocol PRN Reason: Hypoglycemia Enoxaparin Sodium (Enoxaparin 40 Mg/0.4 Ml Syringe) 40 mg SC DAILY [facility] Last Admin: 08/30/20 09:17 Dose: Not Given Documented by: Famotidine (Famotidine 20 Mg Tablet) 20 mg PO BID [facility] Last Admin: 08/30/20 22:08 Dose: 20 mg Documented by: Glucagon (Glucagon 1 Mg/Ml Syringe) 1 mg IM .X1 PRN PRN Reason: Hypoglycemia Guaifenesin (Guaifenesin 10 Ml Udc (200mg/10ml)) 20 ml PO Q4H PRN PRN PRN Reason: COUGH Hydralazine HCl (Hydralazine 20 Mg/Ml Vial) 10 mg IV Q4H PRN PRN PRN Reason: SBP > 160 Last Admin: 08/30/20 09:08 Dose: 10 mg Documented by: Sodium Chloride () 1,000 mls @ 125 mls/hr IV .Q8H [facility] Last Admin: 08/31/20 03:37 Dose: 125 mls/hr Documented by: Vancomycin IV Pharmacy to Dose (1 each/ Sodium Chloride) 500 mls @ 250 mls/hr IV X1 PRN; Protocol PRN Reason: Rx to Dose Vancomycin HCl 2,000 mg/ (Sodium Chloride) 540 mls @ 250 mls/hr IV Q8H [facility] Last Infusion: 08/31/20 06:27 Dose: Infused Documented by: Ampicillin Sodium/Sulbactam (Sodium 3 gm/ Sodium Chloride) 112 mls @ 150 mls/hr IV Q6 [facility] Last Infusion: 08/31/20 01:30 Dose: Infused Documented by: Propofol (Diprivan) 1,000 mg in 100 mls @ 7.53 mls/hr CONT INF .Q12H [facility]; Protocol Last Titration: 08/31/20 04:00 Dose: Infused Documented by: Fentanyl Citrate 1,000 mcg/ (Sodium Chloride) 100 mls @ 5 mls/hr CONT INF .Q20H [facility]; Protocol Last Titration: 08/31/20 05:00 Dose: 0 mcg/hr, 0 mls/hr Documented by: Insulin Glargine (Insulin Glargine 100 Units/Ml Pen) 20 units SC BID [facility] Last Admin: 08/30/20 22:10 Dose: 20 u Documented by: Insulin Human Lispro (Insulin Lispro 100 Unit/Ml Insuln.Pen) 0 unit SC ACHS [facility]; Protocol Last Admin: 08/30/20 22:06 Dose: 5 u Documented by: Insulin Human Lispro (Insulin Lispro 100 Unit/Ml Insuln.Pen) 10 unit SC TIDAC [facility] Last Admin: 08/30/20 18:41 Dose: 10 units Documented by: Lisinopril (Lisinopril 10 Mg Tablet) 10 mg PO DAILY [facility] Last Admin: 08/30/20 09:13 Dose: 10 mg Documented by: Magnesium Hydroxide (Magnesium Hydroxide 30 Ml Udc) 30 ml PO DAILY PRN PRN PRN Reason: Constipation Last Admin: 08/30/20 06:37 Dose: 30 ml Documented by: Morphine Sulfate (Morphine 2 Mg/Ml Syringe) 2 mg IV Q3H PRN PRN PRN Reason: Pain Score 6-10 Last Admin: 08/29/20 11:59 Dose: 2 mg Documented by: Ondansetron HCl (Ondansetron 4 Mg/2 Ml Vial) 4 mg IV Q8H PRN PRN PRN Reason: NAUSEA/VOMITING Last Admin: 08/29/20 20:40 Dose: 4 mg Documented by: Oxycodone HCl (Oxycodone 5 Mg Tablet) 5 mg PO Q4H PRN PRN PRN Reason: Pain Score 4-5 Last Admin: 08/30/20 04:13 Dose: 5 mg Documented by: Prochlorperazine Edisylate (Prochlorperazine 10 Mg/2 Ml Vial) 5 mg IV Q4H PRN P RN PRN Reason: Breakthrough nausea/vomiting Psyllium Hydrophilic Mucilloid (Psyllium 1 Packet) 1 packet PO DAILY PRN PRN PRN Reason: Constipation Senna/Docusate Sodium (Senna/Docusate Sodium 1 Tablet) 2 tablet PO BID PRN PRN PRN Reason: Constipation Last Admin: 08/30/20 09:13 Dose: 2 tablet Documented by: Sodium Chloride (0.9% Saline Lock 10 Ml Syringe) 10 - 40 ml IV UD PRN PRN Reason: SALINE FLUSH Last Admin: 08/30/20 23:04 Dose: 10 ml Documented by: Temazepam (Temazepam 15 Mg Capsule) 15 mg PO QHS PRN PRN PRN Reason: INSOMNIA Last Admin: 08/29/20 22:15 Dose: 15 mg Documented by: Throat Lozenges (Benzocaine/Menthol 1 Lozenge) 1 lozenge MUCOUS MEM Q2H PRN PRN PRN Reason: SORE THROAT Assessment/Plan Active and Suspected Problems Cellulitis (Acute) Sepsis (Acute) Diabetes mellitus, type II (Acute) Cellulitis and abscess of neck (Acute) RECOMMENDATIONS: 1. Proceed with a trial of extubation this morning. 2. Once extubated, wean supplemental oxygen to maintain saturations at or above 90%. 3. Encourage incentive spirometer use and mobilize patient as tolerated. 4. Continue local wound care. 5. Continue antimicrobials per ID recommendations. 6. Avoid nephrotoxic medications. Consider gentle IV fluid hydration. IMPRESSIONS: 1. Postoperative respiratory failure The patient was taken for surgical I&D on August 30 which was uncomplicated. Postoperatively, the patient was never extubated. Nevertheless, prior to his surgical intervention, the patient was maintaining appropriate oxygen saturations on room air. The patient passed his spontaneous breathing trial this morning. He is currently alert and appropriately interactive. Therefore, he will be extubated, with plans to initiate supplemental oxygen as needed to maintain saturations at or above 90%. Encourage incentive spirometer use and mobilize patient as tolerated. 2. MRSA bacteremia Continue local wound care of neck abscess and antimicrobials per ID recommendations. Echocardiogram is still pending. Repeat blood cultures are pending. 3. Acute kidney injury/hypokalemia Most likely prerenal in etiology. Continue supplemental IV fluid hydration as ordered. Continue to monitor urine output. No current indication for renal replacement therapy. UPDATE: Postextubation, the patient did well from a respiratory perspective. The patient remains hemodynamically stable. He is currently maintaining appropriate oxygen saturations on 2 L/min via nasal cannula. Plan to encourage incentive spirometer use. Given overall clinical stability and lack of ICU needs, will sign off. Please call with any additional questions. TIME: 35 minutes of critical care time, independent of procedures, was spent addressing the patient's postoperative respiratory failure, MRSA bacteremia, acute kidney injury, review of all data and collaboration with the care team. [id number]) [id number] Critical care first hour
[2020-08-31] MEDS: Acetaminophen 325 MG Tablet 650 MG PO (06:57)
--- NOTE | 2020-08-31 07:16 | PN_ITS ---
Patient Problems: Active and Suspected Problems Cellulitis (Acute) Sepsis (Acute) Diabetes mellitus, type II (Acute) Cellulitis and abscess of neck (Acute) Reason for Visit: Left posterior neck cellulitis with abscess Subjective: Patient underwent surgical preparation posterior neck with incision and drainage and excisional debridement diabetic MRSA abscess involving underlying muscle (50 cm2) 08/30/[address] Delvalle and Dr. Adorno as a result of worsening abscess. Patient was left on the vent following the procedure and subsequently admitted to the intensive care unit. Patient was weaned off the vent this a.m. Objective: GENERAL: cooperative HEENT: Atraumatic; EYES; Anicteric, Normal Conjunctiva NECK; surgical packing?left posterior side of the neck RESPIRATORY: Diminished to auscultation CARDIOVASCULAR: Regular S1 S2, GI: soft, normoactive bowel sounds, : No Renal angle tenderness; EXTREMITIES: No edema, no clubbing, MUSCULOSKELETAL: no muscle waisting NEURO: Awake; no lateralizing signs. SKIN: As described above PSYCH; Flat affect Vitals/I&O's: Vital Signs Temp Pulse Resp BP Pulse Ox 98.2 F 90 10 L 154/103 H 93 08/31/20 00:00 08/31/20 06:15 08/31/20 06:15 08/31/20 06:00 08/31/20 06:20 Oxygen Flow Rate (L/min) 2 Oxygen Delivery Method Nasal Cannula Weight: 125.5 kg Body Mass Index (BMI) 33.5 Intake and Output for Last 24 Hours 08/29/20 08/30/20 08/31/20 23:59 23:59 23:59 Intake Total 3308.33 / 3308.33 4168.28 / 4197.63 1843.25 / 1843.25 Output Total 525 / 525 2200 / 2200 1310 / 1310 Balance 2783.33 / 2783.33 1968.28 / 1997.63 533.25 / 533.25 Microbiology Past 72 Hours 08/28/20 22:05 Blood Culture (Wb) - No Site/Description Given Blood Culture - Final Meth. resistant Staph. aureus 08/30/20 10:55 Mucosa - Nose SARS-CoV-2 Antigen (Rapid) - Final 08/29/20 02:02 Abs - Neck Gram Stain - Final 08/29/20 02:02 Abs - Neck Wound Culture - Preliminary Staphylococcus aureus Laboratory Results 08/30/20 11:45: POC Glucose 309 H 08/30/20 17:09: POC Glucose 374 H 08/30/20 22:02: POC Glucose 333 H 08/30/20 22:59: Total Creatine Kinase 116, Triglycerides 185 08/31/20 04:15: WBC 13.9 H, RBC 4.41 L, Hgb 12.3 L, Hct 39.3 L, MCV 89.1, MCH 27.9, MCHC 31.3 L, RDW Std Deviation 40.4, RDW Coeff of [place]a 12.2, Plt Count 245, MPV 11.2 08/31/20 04:15: Sodium 137, Potassium 3.4 L, Chloride 105, Carbon Dioxide 27.0, Anion Gap 5, BUN 21 H, Creatinine 1.72 H, Estim Creat Clear Calc 66.19, Est GFR (MDRD) Af Amer 56 L, Est GFR (MDRD) Non-Af 46 L, BUN/Creatinine Ratio 12.2, Glucose 274 H, Calcium 7.6 L, Prealbumin 7.2 L Current Medications Acetaminophen (Acetaminophen 325 Mg Tablet) 650 mg PO Q6H PRN PRN PRN Reason: Pain Score 1-10/Temp > 100.7 F Last Admin: 08/31/20 06:57 Dose: 650 mg Documented by: Al Hydroxide/Mg Hydroxide (Mag Hydrox/Al Hydrox/Simeth 30 Ml Udc) 30 ml PO Q6H PRN PRN PRN Reason: Gastric Burning Albuterol Sulfate (Albuterol 2.5 Mg/3 Ml Vial.Neb.) 2.5 mg INHALATION Q2H PRN PRN PRN Reason: Dyspnea, wheezing Dextrose (Dextrose 50%-Water 25 Gm/50 Ml Disp.Syrin) 0 gm IV X1 PRN; Protocol PRN Reason: Hypoglycemia Enoxaparin Sodium (Enoxaparin 40 Mg/0.4 Ml Syringe) 40 mg SC DAILY [facility] Last Admin: 08/30/20 09:17 Dose: Not Given Documented by: Famotidine (Famotidine 20 Mg Tablet) 20 mg PO BID [facility] Last Admin: 08/30/20 22:08 Dose: 20 mg Documented by: Glucagon (Glucagon 1 Mg/Ml Syringe) 1 mg IM .X1 PRN PRN Reason: Hypoglycemia Guaifenesin (Guaifenesin 10 Ml Udc (200mg/10ml)) 20 ml PO Q4H PRN PRN PRN Reason: COUGH Hydralazine HCl (Hydralazine 20 Mg/Ml Vial) 10 mg IV Q4H PRN PRN PRN Reason: SBP > 160 Last Admin: 08/30/20 09:08 Dose: 10 mg Documented by: Sodium Chloride () 1,000 mls @ 125 mls/hr IV .Q8H [facility] Last Admin: 08/31/20 03:37 Dose: 125 mls/hr Documented by: Vancomycin IV Pharmacy to Dose (1 each/ Sodium Chloride) 500 mls @ 250 mls/hr IV X1 PRN; Protocol PRN Reason: Rx to Dose Vancomycin HCl 2,000 mg/ (Sodium Chloride) 540 mls @ 250 mls/hr IV Q8H [facility] Last Infusion: 08/31/20 06:27 Dose: Infused Documented by: Ampicillin Sodium/Sulbactam (Sodium 3 gm/ Sodium Chloride) 112 mls @ 150 mls/hr IV Q6 [facility] Last Admin: 08/31/20 06:36 Dose: 150 mls/hr Documented by: Propofol (Diprivan) 1,000 mg in 100 mls @ 7.53 mls/hr CONT INF .Q12H [facility]; Protocol Last Titration: 08/31/20 04:00 Dose: Infused Documented by: Fentanyl Citrate 1,000 mcg/ (Sodium Chloride) 100 mls @ 5 mls/hr CONT INF .Q20H [facility]; Protocol Last Titration: 08/31/20 06:36 Dose: Infused Documented by: Insulin Glargine (Insulin Glargine 100 Units/Ml Pen) 20 units SC BID [facility] Last Admin: 08/30/20 22:10 Dose: 20 u Documented by: Insulin Human Lispro (Insulin Lispro 100 Unit/Ml Insuln.Pen) 0 unit SC ACHS [facility]; Protocol Last Admin: 08/30/20 22:06 Dose: 5 u Documented by: Insulin Human Lispro (Insulin Lispro 100 Unit/Ml Insuln.Pen) 10 unit SC TIDAC [facility] Last Admin: 08/30/20 18:41 Dose: 10 units Documented by: Lisinopril (Lisinopril 10 Mg Tablet) 10 mg PO DAILY [facility] Last Admin: 08/30/20 09:13 Dose: 10 mg Documented by: Magnesium Hydroxide (Magnesium Hydroxide 30 Ml Udc) 30 ml PO DAILY PRN PRN PRN Reason: Constipation Last Admin: 08/30/20 06:37 Dose: 30 ml Documented by: Morphine Sulfate (Morphine 2 Mg/Ml Syringe) 2 mg IV Q3H PRN PRN PRN Reason: Pain Score 6-10 Last Admin: 08/29/20 11:59 Dose: 2 mg Documented by: Ondansetron HCl (Ondansetron 4 Mg/2 Ml Vial) 4 mg IV Q8H PRN PRN PRN Reason: NAUSEA/VOMITING Last Admin: 08/29/20 20:40 Dose: 4 mg Documented by: Oxycodone HCl (Oxycodone 5 Mg Tablet) 5 mg PO Q4H PRN PRN PRN Reason: Pain Score 4-5 Last Admin: 08/30/20 04:13 Dose: 5 mg Documented by: Prochlorperazine Edisylate (Prochlorperazine 10 Mg/2 Ml Vial) 5 mg IV Q4H PRN PRN PRN Reason: Breakthrough nausea/vomiting Psyllium Hydrophilic Mucilloid (Psyllium 1 Packet) 1 packet PO DAILY PRN PRN PRN Reason: Constipation Senna/Docusate Sodium (Senna/Docusate Sodium 1 Tablet) 2 tablet PO BID PRN PRN PRN Reason: Constipation Last Admin: 08/30/20 09:13 Dose: 2 tablet Documented by: Sodium Chloride (0.9% Saline Lock 10 Ml Syringe) 10 - 40 ml IV UD PRN PRN Reason: SALINE FLUSH Last Admin: 08/30/20 23:04 Dose: 10 ml Documented by: Temazepam (Temazepam 15 Mg Capsule) 15 mg PO QHS PRN PRN PRN Reason: INSOMNIA Last Admin: 08/29/20 22:15 Dose: 15 mg Documented by: Throat Lozenges (Benzocaine/Menthol 1 Lozenge) 1 lozenge MUCOUS MEM Q2H PRN PRN PRN Reason: SORE THROAT STROKE Vital Signs/Narrative: Vital Signs Pulse Resp BP Pulse Ox 08/31/20 06:20 93 08/31/20 06:15 90 10 L 93 08/31/20 06:00 104 H 22 H 154/103 H 95 08/31/20 05:53 95 08/31/20 05:00 103 H 12 179/103 H 95 08/31/20 04:40 106 H 9 L 96 08/31/20 04:00 106 H 15 106/75 95 Medical Necessity - Tobacco Use Smoking Status: Never smoker Tobacco Use: Non-smoker Assessment/Plan All Active Problems Cellulitis (Acute) Sepsis (Acute) Diabetes mellitus, type II (Acute) Cellulitis and abscess of neck (Acute) Patient is a 45-year-old gentleman who presented with swelling involving the left side of the neck 1. Left Posterior neck cellulitis ?Patient admitted to regular nursing floor started on broad-spectrum antibiotic therapy with vancomycin and Zosyn. CT of the neck obtained on admission demonstrated inflammation and edema without a discrete abscess Within the subcutaneous tissues of the left posterior neck,. Likely cellulitis. Consult placed to general surgery -08/30/2020atient underwent incision and drainage/debridement of left neck absc ess Dr. Fong on 07/29/2020. Wound examination this morning however demonstrated an area of pustules surrounding where the incision was placed and patient neck is more indurated compared to previously. Case was discussed with Dr. Adorno plan is to consult plastic surgery for more extensive I&D. Patient blood cultures also positive for staph aureus. Currently on vancomycin. Consult was placed infectious disease. -08/31/2020 patient underwent surgical preparation posterior neck with incision and drainage and excisional debridement diabetic MRSA abscess involving underlying muscle (50 cm2) 08/30/[address] Delvalle and Dr. Adorno as a result of worsening abscess. Patient was left on the vent following the procedure and subsequently admitted to the intensive care unit 2. Acute respiratory failure ?Following patient surgical procedure was left on the vent admitted to the intensive care unit consult placed to nephrology patient was weaned off the vent this a.m. 3. Acute kidney injury ?Do suspect component of ATN from patient's underlying infection currently on IV fluid with subsequent monitoring of electrolyte. Patient has been started on lisinopril for blood pressure control on admission this has been discontinued 4. New onset diabetes mellitus type 2 Order hemoglobin A1c. Placed on long acting insulin, Accu-Cheks a.c. and at bedtime and covered with sliding scale insulin she was also placed on 1800 ADA diet and consult placed to diabetic education -08/30/2020; Hemoglobin A1c was 11.2. Blood glucose levels not well controlled. Adjusted doses of long-acting insulin and added scheduled short acting insulin 5. Essential hypertension - newly diagnosed; was started on lisinopril -08/30/2020; patient blood control still not optimal adjusted meant 6. Enlarging heterogeneous thyroid Patient to undergo ultrasound of the thyroid as outpatient following resolution of her left neck 7. Obesity with BMI of 33 ?Weight loss advised 8. DVT prophylaxis ?Lovenox Inpatient E&M: [id number] [facility] L3
[2020-08-31] MEDS: Insulin Lispro 100 UNIT/ML INSULN.PEN SC ×4 (08:19→21:32)
[2020-08-31] MEDS: Insulin Lispro 100 UNIT/ML INSULN.PEN 10 UNIT SC ×3 (08:19→17:55)
[2020-08-31] MEDS: oxyCODONE 5 MG Tablet PO ×2 (08:25→16:55)
[2020-08-31] MEDS: Famotidine 20 MG Tablet PO ×2 (08:25→21:32)
[2020-08-31] MEDS: Lisinopril 10 MG Tablet PO (08:25)
[2020-08-31] MEDS: hydrALAZINE 20 MG/ML Vial 10 MG IV (10:15)
--- NOTE | 2020-08-31 11:19 | NURSING ---
report called to med-surg transferred per bed with belongings, informed of transfer
[2020-08-31] MEDS: amLODIPine 10 MG Tablet PO (12:51)
[2020-08-31] MEDS: Potassium Chloride Oral Tablet 20 MEQ 40 MEQ PO (12:51)
[2020-08-31 13:01] LABS: Bedside Glucose 308 mg/dL (70-110)
[2020-08-31] MEDS: hydrALAZINE 25 MG Tablet PO ×2 (14:10→21:31)
[2020-08-31 17:35] LABS: Bedside Glucose 239 mg/dL (70-110)
[2020-08-31] MEDS: DAKIN'S SOL HALF STRENGTH (=0.25%) 1 APPLIC TOPICAL (17:45)
--- NOTE | 2020-08-31 20:29 | PCM.PN.SRG ---
Patient Problems: Active and Suspected Problems Cellulitis (Acute) Sepsis (Acute) Diabetes mellitus, type II (Acute) Cellulitis and abscess of neck (Acute) Subjective: Postop #1 Patient is resting comfortably. Tolerated the Dakin's dressing change. - Physical Exam Vitals/I&O's: Vital Signs Temp Pulse Resp BP Pulse Ox 98.2 F 96 16 148/79 H 97 08/31/20 20:27 08/31/20 20:27 08/31/20 20:27 08/31/20 20:27 08/31/20 20:27 Oxygen Flow Rate (L/min) 2 Oxygen Delivery Method Room Air Weight: 276 lb 10.882 oz Body Mass Index (BMI) 33.5 Intake and Output for Last 24 Hours 08/29/20 08/30/20 08/31/20 23:59 23:59 23:59 Intake Total 3308.33 / 3308.33 4168.28 / 4197.63 6453.09 / 6453.09 Output Total 525 / 525 2200 / 2200 2160 / 2160 Balance 2783.33 / 2783.33 1968.28 / 1997.63 4293.09 / 4293.09 General: Alert, Oriented x3 HEENT: PERRLA, EOMI Oral: Moist Mucosa Neck: Supple Abdomen: Soft, Non-Distended Skin: Ulcer/ Wound - posterior neck wound is stable. No active bleeding seen. Patient tolerated the Dakin's dressing change. Neurological: Cranial nerves II-XII grossly intact Psych/Mental Status: Normal Affect, Appropriate Microbiology Past 72 Hours 08/30/20 16:10 Tissue - Neck Gram Stain - Final 08/30/20 16:10 Tissue - Neck Wound Culture - Preliminary Staphylococcus species 08/28/20 22:13 Blood Culture (Wb) - Right Wrist Blood Culture - Preliminary No growth in 48 hours. 08/29/20 02:02 Abs - Neck Gram Stain - Final 08/29/20 02:02 Abs - Neck Wound Culture - Final Meth. resistant Staph. aureus 08/28/20 22:05 Blood Culture (Wb) - No Site/Description Given Blood Culture - Final Meth. resistant Staph. aureus 08/30/20 10:55 Mucosa - Nose SARS-CoV-2 Antigen (Rapid) - Final Laboratory Results 08/30/20 22:02: POC Glucose 333 H 08/30/20 22:59: Total Creatine Kinase 116, Triglycerides 185 08/31/20 04:15: WBC 13.9 H, RBC 4.41 L, Hgb 12.3 L, Hct 39.3 L, MCV 89.1, MCH 27.9, MCHC 31.3 L, RDW Std Deviation 40.4, RDW Coeff of [place]a 12.2, Plt Count 245, MPV 11.2 08/31/20 04:15: Sodium 137, Potassium 3.4 L, Chloride 105, Carbon Dioxide 27.0, Anion Gap 5, BUN 21 H, Creatinine 1.72 H, Estim Creat Clear Calc 66.19, Est GFR (MDRD) Af Amer 56 L, Est GFR (MDRD) Non-Af 46 L, BUN/Creatinine Ratio 12.2, Glucose 274 H, Calcium 7.6 L, Prealbumin 7.2 L 08/31/20 12:49: POC Glucose 308 H 08/31/20 16:58: POC Glucose 239 H 08/31/20 19:50: Vancomycin Trough Pending Current Medications Acetaminophen (Acetaminophen 325 Mg Tablet) 650 mg PO Q6H PRN PRN PRN Reason: Pain Score 1-10/Temp > 100.7 F Last Admin: 08/31/20 06:57 Dose: 650 mg Documented by: Al Hydroxide/Mg Hydroxide (Mag Hydrox/Al Hydrox/Simeth 30 Ml Udc) 30 ml PO Q6H PRN PRN PRN Reason: Gastric Burning Albuterol Sulfate (Albuterol 2.5 Mg/3 Ml Vial.Neb.) 2.5 mg INHALATION Q2H PRN PRN PRN Reason: Dyspnea, wheezing Amlodipine Besylate (Amlodipine 10 Mg Tablet) 10 mg PO DAILY [facility] Last Admin: 08/31/20 12:51 Dose: 10 mg Documented by: Dextrose (Dextrose 50%-Water 25 Gm/50 Ml Disp.Syrin) 0 gm IV X1 PRN; Protocol PRN Reason: Hypoglycemia Enoxaparin Sodium (Enoxaparin 40 Mg/0.4 Ml Syringe) 40 mg SC DAILY [facility] Last Admin: 08/31/20 08:28 Dose: Not Given Documented by: Famotidine (Famotidine 20 Mg Tablet) 20 mg PO BID [facility] Last Admin: 08/31/20 08:25 Dose: 20 mg Documented by: Glucagon (Glucagon 1 Mg/Ml Syringe) 1 mg IM .X1 PRN PRN Reason: Hypoglycemia Hydralazine HCl (Hydralazine 20 Mg/Ml Vial) 10 mg IV Q4H PRN PRN PRN Reason: SBP > 160 Last Admin: 08/31/20 10:15 Dose: 10 mg Documented by: Hydralazine HCl (Hydralazine 25 Mg Tablet) 25 mg PO TID [facility] Last Admin: 08/31/20 14:10 Dose: 25 mg Documented by: Sodium Chloride () 1,000 mls @ 125 mls/hr IV .Q8H [facility] Last Infusion: 08/31/20 18:43 Dose: 0 mls/hr Documented by: Vancomycin IV Pharmacy to Dose (1 each/ Sodium Chloride) 500 mls @ 250 mls/hr IV X1 PRN; Protocol PRN Reason: Rx to Dose Vancomycin HCl 2,000 mg/ (Sodium Chloride) 540 mls @ 250 mls/hr IV Q8H [facility] Last Infusion: 08/31/20 15:01 Dose: Infused Documented by: Ampicillin Sodium/Sulbactam (Sodium 3 gm/ Sodium Chloride) 112 mls @ 150 mls/hr IV Q6 [facility] Last Admin: 08/31/20 18:42 Dose: 150 mls/hr Documented by: Insulin Glargine (Insulin Glargine 100 Units/Ml Pen) 20 units SC BID [facility] Last Admin: 08/31/20 08:20 Dose: 20 u Documented by: Insulin Human Lispro (Insulin Lispro 100 Unit/Ml Insuln.Pen) 0 unit SC ACHS [facility]; Protocol Last Admin: 08/31/20 17:56 Dose: 3 u Documented by: Insulin Human Lispro (Insulin Lispro 100 Unit/Ml Insuln.Pen) 10 unit SC TIDAC [facility] Last Admin: 08/31/20 17:55 Dose: 10 units Documented by: Magnesium Hydroxide (Magnesium Hydroxide 30 Ml Udc) 30 ml PO DAILY PRN PRN PRN Reason: Constipation Last Admin: 08/30/20 06:37 Dose: 30 ml Documented by: Ondansetron HCl (Ondansetron 4 Mg/2 Ml Vial) 4 mg IV Q8H PRN PRN PRN Reason: NAUSEA/VOMITING Last Admin: 08/29/20 20:40 Dose: 4 mg Documented by: Oxycodone HCl (Oxycodone 5 Mg Tablet) 5 mg PO Q4H PRN PRN PRN Reason: Pain Score 4-5 Last Admin: 08/31/20 16:55 Dose: 5 mg Documented by: Prochlorperazine Edisylate (Prochlorperazine 10 Mg/2 Ml Vial) 5 mg IV Q4H PRN PRN PRN Reason: Breakthrough nausea/vomiting Psyllium Hydrophilic Mucilloid (Psyllium 1 Packet) 1 packet PO DAILY PRN PRN PRN Reason: Constipation Senna/Docusate Sodium (Senna/Docusate Sodium 1 Tablet) 2 tablet PO BID PRN PRN PRN Reason: Constipation Last Admin: 08/30/20 09:13 Dose: 2 tablet Documented by: Sodium Chloride (0.9% Saline Lock 10 Ml Syringe) 10 - 40 ml IV UD PRN PRN Reason: SALINE FLUSH Last Admin: 08/30/20 23:04 Dose: 10 ml Documented by: Sodium Hypochlorite (Dakin's Margret Half Strength (=0.25%)) 1 applic TOPICAL BID [place]; Protocol Last Admin: 08/31/20 17:45 Dose: 1 applic Documented by: Temazepam (Temazepam 15 Mg Capsule) 15 mg PO QHS PRN PRN PRN Reason: INSOMNIA Last Admin: 08/29/20 22:15 Dose: 15 mg Documented by: Throat Lozenges (Benzocaine/Menthol 1 Lozenge) 1 lozenge MUCOUS MEM Q2H PRN PRN PRN Reason: SORE THROAT Medical Necessity - Tobacco Use Smoking Status: Never smoker Tobacco Use: Non-smoker Assessment/Plan All Active Problems Cellulitis (Acute) Sepsis (Acute) Diabetes mellitus, type II (Acute) Cellulitis and abscess of neck (Acute) 1. Large diabetic MRSA abscess posterior neck involving underlying muscle. 2. Sepsis. 3. MRSA. 4. Diabetes mellitus, uncontrolled, with HgbA1c 11.8. 5. s/p surgical preparation posterior neck with incision and drainage and excisional debridement diabetic MRSA abscess involving underlying muscle (50 cm2). Posterior neck wound is stable. No active bleeding seen. Redressed wound with Dakin's dressing changes to be done twice a day. Operative culture shows Staphylococcus aureus. Preoperative culture showed MRSA. He is currently on Vancomycin and Unasyn. WBC has improved since the operative intervention from 18.0 down to 13.9. Prealbumin is 7.2. Encourage nutritional supplementation with protein to help the healing process. HgbA1c is 11.8. He states he hasn't seen an Manufacturing [employer] Professor for the last 10-15 years. Will make referral upon discharge. Encourage range of motion exercises to minimize stiffness. If stiffness develops, can set up PT as outpatient for range of motion exercises. After discharge will [facility]. If there is a plateau in the healing process, can proceed with delayed closure with skin grafting.
[2020-08-31 20:38] LABS: Vancomycin, Trough Level 14.6 ug/mL (5.0-15.0)
--- NOTE | 2020-08-31 21:05 | PCM.RX.CS ---
Consult Pharmacy has been consulted to manage selected antiobiotic: Vancomycin Type of Consult: Follow-up Labs: Sodium 137 mmol/L (136-145) 08/31/20 04:15 Potassium 3.4 mmol/L (3.5-5.1) L 08/31/20 04:15 Chloride 105 mmol/L (98-107) 08/31/20 04:15 Carbon Dioxide 27.0 mmol/L (21.0-32.0) 08/31/20 04:15 Anion Gap 5 (5-15) 08/31/20 04:15 BUN 21 mg/dL (7-18) H 08/31/20 04:15 Creatinine 1.72 mg/dL (0.70-1.30) H 08/31/20 04:15 Est GFR (MDRD) Af Amer 56 mL/min (>60) L 08/31/20 04:15 Est GFR (MDRD) Non-Af 46 mL/min (>60) L 08/31/20 04:15 BUN/Creatinine Ratio 12.2 RATIO (10-20) 08/31/20 04:15 Glucose 274 mg/dL (74-106) H 08/31/20 04:15 Vancomycin Trough 14.6 ug/mL (5.0-15.0) 08/31/20 19:50 Microbiology: Microbiology 08/30/20 16:10 Tissue - Neck Gram Stain - Final 08/30/20 16:10 Tissue - Neck Wound Culture - Preliminary Staphylococcus species 08/28/20 22:13 Blood Culture (Wb) - Right Wrist Blood Culture - Preliminary No growth in 48 hours. 08/29/20 02:02 Abs - Neck Gram Stain - Final 08/29/20 02:02 Abs - Neck Wound Culture - Final Meth. resistant Staph. aureus 08/28/20 22:05 Blood Culture (Wb) - No Site/Description Given Blood Culture - Final Meth. resistant Staph. aureus 08/30/20 10:55 Mucosa - Nose SARS-CoV-2 Antigen (Rapid) - Final Goal Trough: 15-20 mcg/mL Pharmacy Plan for Drug Dosing: Pharmacy Service will continue to monitor and adjust dosing as required. TROUGH 14.6 NO CHANGES, FOLLOW UP TROGH IN 4 DAYS PER PROTOCOL Follow-Up Labs: Trough Vancomycin Labs to be done on [date and time ordered]: 09/04 @ 6423
[2020-08-31 21:45] LABS: Bedside Glucose 284 mg/dL (70-110)
[2020-09-01] VITALS (9 sets, daily range): BP systolic 149–179; BP diastolic 78–111; PULSE 87–95; RESP 16–18; TEMP 36.6–37; O2SAT 93–96
[2020-09-01] MEDS: 0.9% Normal Saline 1,000 ML 125 ML IV ×2 (01:15→15:10)
[2020-09-01] MEDS: Acetaminophen 325 MG Tablet 650 MG PO ×3 (01:17→20:53)
[2020-09-01 06:08] LABS: Hematocrit 38.5 % (40-54); Hemoglobin 12.1 g/dL (13.0-16.5); Mean Corp Hgb Conc 31.4 g/dL (32-36); Mean Corpuscular Hgb 27.4 pg (27.0-32.0); Mean Corpuscular Volume 87.1 fL (80-94); Mean Platelet Vol. 10.7 fl (6.2-12.0); Platelet Count 265 K/mm3 (150-450); RBC Distribution Width CV 11.8 % (11.6-14.6); RBC Distribution Width SD 38.2 fl (35.1-43.9); Red Blood Count 4.42 M/mm3 (4.6-6.2); White Blood Count 10.2 K/mm3 (4.4-11.0)
[2020-09-01] MEDS: hydrALAZINE 25 MG Tablet PO ×3 (06:17→22:00)
[2020-09-01] MEDS: oxyCODONE 5 MG Tablet PO (06:18)
[2020-09-01 06:34] LABS: Anion Gap 4 (5-15); BUN 10 mg/dL (7-18); BUN/Creat Ratio 13.2 RATIO (10-20); Calcium,Total 8.2 mg/dL (8.5-10.1); Chloride 103 mmol/L (98-107); Creatinine, Serum 0.76 mg/dL (0.70-1.30); EST Glomerular Filtration Rate 119 mL/min (>60); Est Glom Filt Rate - Afr Amer 144 mL/min (>60); Estimated Creatinine Clearance 149.79 ml/min; Glucose 252 mg/dL (74-106); Potassium 3.1 mmol/L (3.5-5.1); Sodium Level 137 mmol/L (136-145)
--- NOTE | 2020-09-01 07:59 | PCM.PN.HOSP ---
Patient Problems: Active and Suspected Problems Cellulitis (Acute) Sepsis (Acute) Diabetes mellitus, type II (Acute) Cellulitis and abscess of neck (Acute) Reason for Visit: Left posterior neck cellulitis with abscess Subjective: Patient underwent surgical preparation posterior neck with incision and drainage and excisional debridement diabetic MRSA abscess involving underlying muscle (50 cm2) 08/30/[address] Delvalle and Dr. Adorno as a result of worsening abscess. Cultures obtained came back positive for MRSA Objective: GENERAL: cooperative HEENT: Atraumatic; EYES; Anicteric, Normal Conjunctiva NECK; surgical packing?left posterior side of the neck RESPIRATORY: Diminished to auscultation CARDIOVASCULAR: Regular S1 S2, GI: soft, normoactive bowel sounds, : No Renal angle tenderness; EXTREMITIES: No edema, no clubbing, MUSCULOSKELETAL: no muscle waisting NEURO: Awake; no lateralizing signs. SKIN: As described above PSYCH; Flat affect Vitals/I&O's: Vital Signs Temp Pulse Resp BP Pulse Ox 98.5 F 95 18 162/96 H 94 09/01/20 03:32 09/01/20 06:17 09/01/20 03:32 09/01/20 06:17 09/01/20 06:43 Oxygen Flow Rate (L/min) 2 Oxygen Delivery Method Room Air Weight: 124.3 kg Body Mass Index (BMI) 33.5 Intake and Output for Last 24 Hours 08/30/20 08/31/20 09/01/20 23:59 23:59 23:59 Intake Total 4168.28 / 4197.63 7465.09 / 7465.09 1320.75 / 1320.75 Output Total 2200 / 2200 2160 / 2160 Balance 1968.28 / 1996.63 5305.09 / 5305.09 1320.75 / 1320.75 Microbiology Past 72 Hours 08/30/20 16:10 Tissue - Neck Gram Stain - Final 08/30/20 16:10 Tissue - Neck Wound Culture - Preliminary Staphylococcus species 08/28/20 22:13 Blood Culture (Wb) - Right Wrist Blood Culture - Preliminary No growth in 48 hours. 08/29/20 02:02 Abs - Neck Gram Stain - Final 08/29/20 02:02 Abs - Neck Wound Culture - Final Meth. resistant Staph. aureus 08/28/20 22:05 Blood Culture (Wb) - No Site/Description Given Blood Culture - Final Meth. resistant Staph. aureus 08/30/20 10:55 Mucosa - Nose SARS-CoV-2 Antigen (Rapid) - Final Laboratory Results 08/31/20 12:49: POC Glucose 308 H 08/31/20 16:58: POC Glucose 239 H 08/31/20 19:50: Vancomycin Trough 14.6 08/31/20 21:26: POC Glucose 284 H 09/01/20 05:45: WBC 10.2, RBC 4.42 L, Hgb 12.1 L, Hct 38.5 L, MCV 87.1, MCH 27.4, MCHC 31.4 L, RDW Std Deviation 38.2, RDW Coeff of [place] 11.8, Plt Count 265, MPV 10.7 09/01/20 05:45: Sodium 137, Potassium 3.1 L, Chloride 103, Carbon Dioxide 30.0, Anion Gap 4 L, BUN 10, Creatinine 0.76, Estim Creat Clear Calc 149.79, Est GFR (MDRD) Af Amer 144, Est GFR (MDRD) Non-Af 119, BUN/Creatinine Ratio 13.2, Glucose 252 H, Calcium 8.2 L Current Medications Acetaminophen (Acetaminophen 325 Mg Tablet) 650 mg PO Q6H PRN PRN PRN Reason: Pain Score 1-10/Temp > 100.7 F Last Admin: 09/01/20 01:17 Dose: 650 mg Documented by: Al Hydroxide/Mg Hydroxide (Mag Hydrox/Al Hydrox/Simeth 30 Ml Udc) 30 ml PO Q6H PRN PRN PRN Reason: Gastric Burning Albuterol Sulfate (Albuterol 2.5 Mg/3 Ml Vial.Neb.) 2.5 mg INHALATION Q2H PRN PRN PRN Reason: Dyspnea, wheezing Amlodipine Besylate (Amlodipine 10 Mg Tablet) 10 mg PO DAILY [facility] Last Admin: 08/31/20 12:51 Dose: 10 mg Documented by: Dextrose (Dextrose 50%-Water 25 Gm/50 Ml Disp.Syrin) 0 gm IV X1 PRN; Protocol PRN Reason: Hypoglycemia Enoxaparin Sodium (Enoxaparin 40 Mg/0.4 Ml Syringe) 40 mg SC DAILY [facility] Last Admin: 08/31/20 08:28 Dose: Not Given Documented by: Famotidine (Famotidine 20 Mg Tablet) 20 mg PO BID [facility] Last Admin: 08/31/20 21:32 Dose: 20 mg Documented by: Glucagon (Glucagon 1 Mg/Ml Syringe) 1 mg IM .X1 PRN PRN Reason: Hypoglycemia Hydralazine HCl (Hydralazine 20 Mg/Ml Vial) 10 mg IV Q4H PRN PRN PRN Reason: SBP > 160 Last Admin: 08/31/20 10:15 Dose: 10 mg Documented by: Hydralazine HCl (Hydralazine 25 Mg Tablet) 25 mg PO TID [facility] Last Admin: 09/01/20 06:17 Dose: 25 mg Documented by: Sodium Chloride () 1,000 mls @ 125 mls/hr IV .Q8H [facility] Last Infusion: 09/01/20 04:11 Dose: 0 mls/hr Documented by: Vancomycin IV Pharmacy to Dose (1 each/ Sodium Chloride) 500 mls @ 250 mls/hr IV X1 PRN; Protocol PRN Reason: Rx to Dose Vancomycin HCl 2,000 mg/ (Sodium Chloride) 540 mls @ 250 mls/hr IV Q8H [facility] Last Infusion: 09/01/20 06:21 Dose: Infused Documented by: Ampicillin Sodium/Sulbactam (Sodium 3 gm/ Sodium Chloride) 112 mls @ 150 mls/hr IV Q6 [facility] Last Admin: 09/01/20 07:17 Dose: 150 mls/hr Documented by: Insulin Glargine (Insulin Glargine 100 Units/Ml Pen) 20 units SC BID [facility] Last Admin: 08/31/20 21:33 Dose: 20 u Documented by: Insulin Human Lispro (Insulin Lispro 100 Unit/Ml Insuln.Pen) 0 unit SC ACHS [facility]; Protocol Last Admin: 08/31/20 21:32 Dose: 4 u Documented by: Insulin Human Lispro (Insulin Lispro 100 Unit/Ml Insuln.Pen) 10 unit SC TIDAC [facility] Last Admin: 08/31/20 17:55 Dose: 10 units Documented by: Magnesium Hydroxide (Magnesium Hydroxide 30 Ml Udc) 30 ml PO DAILY PRN PRN PRN Reason: Constipation Last Admin: 08/30/20 06:37 Dose: 30 ml Documented by: Ondansetron HCl (Ondansetron 4 Mg/2 Ml Vial) 4 mg IV Q8H PRN PRN PRN Reason: NAUSEA/VOMITING Last Admin: 08/29/20 20:40 Dose: 4 mg Documented by: Oxycodone HCl (Oxycodone 5 Mg Tablet) 5 mg PO Q4H PRN PRN PRN Reason: Pain Score 4-5 Last Admin: 09/01/20 06:18 Dose: 5 mg Documented by: Prochlorperazine Edisylate (Prochlorperazine 10 Mg/2 Ml Vial) 5 mg IV Q4H PRN PRN PRN Reason: Breakthrough nausea/vomiting Psyllium Hydrophilic Mucilloid (Psyllium 1 Packet) 1 packet PO DAILY PRN PRN PRN Reason: Constipation Senna/Docusate Sodium (Senna/Docusate Sodium 1 Tablet) 2 tablet PO BID PRN PRN PRN Reason: Constipation Last Admin: 08/30/20 09:13 Dose: 2 tablet Documented by: Sodium Chloride (0.9% Saline Lock 10 Ml Syringe) 10 - 40 ml IV UD PRN PRN Reason: SALINE FLUSH Last Admin: 08/30/20 23:04 Dose: 10 ml Documented by: Sodium Hypochlorite (Dakin's Margret Half Strength (=0.25%)) 1 applic TOPICAL BID [place]; Protocol Last Admin: 08/31/20 17:45 Dose: 1 applic Documented by: Temazepam (Temazepam 15 Mg Capsule) 15 mg PO QHS PRN PRN PRN Reason: INSOMNIA Last Admin: 08/29/20 22:15 Dose: 15 mg Documented by: Throat Lozenges (Benzocaine/Menthol 1 Lozenge) 1 lozenge MUCOUS MEM Q2H PRN PRN PRN Reason: SORE THROAT STROKE Vital Signs/Narrative: Vital Signs Pulse BP Pulse Ox 09/01/20 06:43 94 09/01/20 06:17 95 162/96 H Medical Necessity - Tobacco Use Smoking Status: Never smoker Tobacco Use: Non-smoker Assessment/Plan All Active Problems Cellulitis (Acute) Sepsis (Acute) Diabetes mellitus, type II (Acute) Cellulitis and abscess of neck (Acute) Patient is a 45-year-old gentleman who presented with swelling involving the left side of the neck 1. Left Posterior neck cellulitis ?Patient admitted to regular nursing floor started on broad-spectrum antibiotic therapy with vancomycin and Zosyn. CT of the neck obtained on admission demonstrated inflammation and edema without a discrete abscess Within the subcutaneous tissues of the left posterior neck,. Likely cellulitis. Consult placed to general surgery -08/30/2020atient underwent incision and drainage/debridement of left neck abscess Dr. Fong on 07/29/2020. Wound examination this morning however demonstrated an area of pustules surrounding where the incision was placed and patient neck is more indurated compared to previously. Case was discussed with Dr. Adorno plan is to consult plastic surgery for more extensive I&D. Patient blood cultures also positive for staph aureus. Currently on vancomycin. Consult was placed infectious disease. -08/31/2020 patient underwent surgical preparation posterior neck with incision and drainage and excisional debridement diabetic MRSA abscess involving underlying muscle (50 cm2) 08/30/[address] Delvalle and Dr. Adorno as a result of worsening abscess. Patient was left on the vent following the procedure and subsequently admitted to the intensive care unit 09/01/2020; Cultures obtained came back positive for MRSA. Patient on vancomycin ID on consult 2. Acute respiratory failure ?Following patient surgical procedure was left on the vent admitted to the intensive care unit consult placed to nephrology patient was weaned off the vent this a.m. -09/01/2020 resolved 3. Acute kidney injury ?Do suspect component of ATN from patient's underlying infection currently on IV fluid with subsequent monitoring of electrolyte. Patient has been started on lisinopril for blood pressure control on admission this has been discontinued 4. New onset diabetes mellitus type 2 Order hemoglobin A1c. Placed on long acting insulin, Accu-Cheks a.c. and at bedtime and covered with sliding scale insulin she was also placed on 1800 ADA diet and consult placed to diabetic education -08/30/2020; Hemoglobin A1c was 11.2. Blood glucose levels not well controlled. Adjusted doses of long-acting insulin and added scheduled short acting insulin 09/01/2020; patient glucose level still not well controlled further adjustment made to his insulin regimen 5. Essential hypertension - newly diagnosed; was started on lisinopril -08/30/2020; patient blood control still not optimal adjusted meant 6. Enlarging heterogeneous thyroid Patient to undergo ultrasound of the thyroid as outpatient following resolution of her left neck 7. Obesity with BMI of 33 ?Weight loss advised 8. DVT prophylaxis ?Lovenox Inpatient E&M: 54697 Subs Hosp L2
[2020-09-01] MEDS: Insulin Lispro 100 UNIT/ML INSULN.PEN 10 UNIT SC ×3 (08:14→17:09)
[2020-09-01] MEDS: Insulin Lispro 100 UNIT/ML INSULN.PEN SC ×4 (08:14→22:04)
[2020-09-01] MEDS: Famotidine 20 MG Tablet PO ×2 (10:29→22:00)
[2020-09-01] MEDS: DAKIN'S SOL HALF STRENGTH (=0.25%) 1 APPLIC TOPICAL ×2 (10:29→22:03)
[2020-09-01] MEDS: Potassium Chloride Oral Tablet 20 MEQ 40 MEQ PO (10:29)
[2020-09-01] MEDS: amLODIPine 10 MG Tablet PO (10:29)
[2020-09-01 10:36] LABS: Bedside Glucose 292 mg/dL (70-110)
[2020-09-01 12:30] LABS: Bedside Glucose 376 mg/dL (70-110)
[2020-09-01] MEDS: Potassium Chloride Oral Tablet 20 MEQ PO (17:10)
[2020-09-01 17:21] LABS: Bedside Glucose 257 mg/dL (70-110)
[2020-09-02] VITALS (7 sets, daily range): BP systolic 152–176; BP diastolic 92–106; PULSE 86–95; RESP 16–17; TEMP 36.6–37.1; O2SAT 94–96
[2020-09-02 00:06] LABS: Bedside Glucose 278 mg/dL (70-110)
[2020-09-02] MEDS: oxyCODONE 5 MG Tablet PO ×2 (00:16→04:20)
[2020-09-02] MEDS: 0.9% Normal Saline 1,000 ML 125 ML IV (03:20)
[2020-09-02] MEDS: Acetaminophen 325 MG Tablet 650 MG PO (04:21)
[2020-09-02] MEDS: hydrALAZINE 25 MG Tablet PO (06:01)
[2020-09-02 07:35] LABS: Bedside Glucose 229 mg/dL (70-110)
[2020-09-02 07:48] LABS: Anion Gap 9 (5-15); BUN 8 mg/dL (7-18); Calcium,Total 8.8 mg/dL (8.5-10.1); Chloride 99 mmol/L (98-107); Creatinine, Serum 0.73 mg/dL (0.70-1.30); EST Glomerular Filtration Rate 125 mL/min (>60); Est Glom Filt Rate - Afr Amer 151 mL/min (>60); Estimated Creatinine Clearance 155.95 ml/min; Glucose 208 mg/dL (74-106); Sodium Level 135 mmol/L (136-145)
[2020-09-02] MEDS: Insulin Lispro 100 UNIT/ML INSULN.PEN SC ×2 (08:35→11:56)
[2020-09-02] MEDS: Insulin Lispro 100 UNIT/ML INSULN.PEN 10 UNIT SC ×2 (08:35→11:57)
[2020-09-02] MEDS: Famotidine 20 MG Tablet PO (08:37)
[2020-09-02] MEDS: amLODIPine 10 MG Tablet PO (08:39)
[2020-09-02] MEDS: Potassium Chloride Oral Tablet 20 MEQ PO (08:43)
--- NOTE | 2020-09-02 09:30 | NURSING ---
wound photo: left posterior neck
[2020-09-02] MEDS: hydrALAZINE 20 MG/ML Vial 10 MG IV (11:07)
[2020-09-02] MEDS: DAKIN'S SOL HALF STRENGTH (=0.25%) 1 APPLIC TOPICAL (11:08)
[2020-09-02 11:11] LABS: Bedside Glucose 294 mg/dL (70-110)
[2020-09-02] MEDS: Linezolid 600 MG Tablet PO (11:53)
--- NOTE | 2020-09-02 11:59 | PCM.HP.ID ---
Problem List (1) MRSA (methicillin resistant Staphylococcus aureus) Status: Acute Reason for Consult: bacteremia Consulted by: Dr. Escoto History of Present Illness: The patient is a 45 year old M, has not seen a doctor in 15 years, reports always thirsty, drinks a lot of juice and lemonade. H/o small skin abscesses in past. About 2 weeks ago, noticed bump on back of neck. Tried picking at it, got worse and worse slowly with minimal pus coming out. Then acutely worsened, much more painful, red, swollen, extending up head and along L jaw. Some fever and chills. Has not gotten covid vaccine. No new joint or back pain. Came to ED, admitted on vanc/zosyn, found to have MRSA neck abscess and bacteremia. Taken to OR 08/[address] Delvalle for I&D. Feeling much better. New dx of DM. Full ROS performed and neg except as noted above. - Medical History Past Medical History (Chronic Problems): Chronic Problems HTN (hypertension) (Chronic) Morbid obesity (Chronic) Allergies/Adverse Reactions: Allergies No Known Allergies Allergy (Verified 08/28/20 21:15) Home Medications: Ambulatory Orders Medication Instructions Recorded Linezolid 600 mg PO BID #22 tablet 09/02/20 - Social History Tobacco Use: non-smoker Vital Signs Temp Pulse Resp BP Pulse Ox 97.9 F 94 16 176/99 H 94 09/02/20 11:09 09/02/20 11:09 09/02/20 11:09 09/02/20 11:09 09/02/20 11:09 Oxygen Flow Rate (L/min) 2 Oxygen Delivery Method Room Air Weight: 121.2 kg Body Mass Index (BMI) 33.5 Microbiology Past 72 Hours 08/30/20 13:55 Blood Culture - Preliminary Blood Culture (Wb) - Anticubital Right No growth in 48 hours. 08/30/20 16:10 Gram Stain - Final Tissue - Neck Wound Culture - Final Meth. resistant Staph. aureus Anaerobic Culture - Final No anaerobic bacteria isolated. 08/31/20 10:00 Blood Culture - Preliminary Blood Culture (Wb) - Right Hand No growth in 48 hours. 08/28/20 22:13 Blood Culture - Preliminary Blood Culture (Wb) - Right Wrist No growth in 48 hours. 08/29/20 02:02 Gram Stain - Final Abs - Neck Wound Culture - Final Meth. resistant Staph. aureus 08/28/20 22:05 Blood Culture - Final Blood Culture (Wb) - No Site/Description Given Meth. resistant Staph. aureus 08/30/20 10:55 SARS-CoV-2 Antigen (Rapid) - Final Mucosa - Nose Laboratory Tests Past 24 Hrs 09/02/20 06:20 Sodium 135 L Potassium 3.0 L Chloride 99 Carbon Dioxide 27.0 Anion Gap 9 BUN 8 Creatinine 0.73 Estim Creat Clear Calc 155.95 Est GFR (MDRD) Af Amer 151 Est GFR (MDRD) Non-Af 125 BUN/Creatinine Ratio 11.0 Glucose 208 H Calcium 8.8 - Other Studies Radiology: [] reviewed Other Studies: [] Route of nutrition/ use of supplements: [] Nutritional Intake: [] IV Site: [] Lynn Catheter: [] - Physical Exam General: Alert, Oriented x3, Cooperative, No apparent distress HEENT: Atraumatic, PERRLA, EOMI Neck: Supple, No Nodes Lungs: Clear to auscultation, Normal air movement Cardiovascular: Regular rate, Regular Rhythm, No murmurs Abdomen: Soft, Non Tender, Non-Distended, Obese Extremities: No edema Skin: No rashes - no splinter hemorrhages on hands, Ulcer/ Wound - reviewed photo IV Site: Peripheral, without redness Musculoskeletal: No Tenderness to Palpation of Joints or Extremities - no spine tenderness Neurological: Cranial nerves II-XII grossly intact - Assessment/Plan Antibiotics: [] Assessment/Plan: [] Active and Suspected Problems Cellulitis (Acute) Sepsis (Acute) Diabetes mellitus, type II (Acute) Cellulitis and abscess of neck (Acute) MRSA bacteremia due to neck abscess - taken to OR 08/30/[address] Delvalle for source control. Repeat bcx rapidly neg at 48 hours from 08/31. TTE neg for veg. A1c nearly 12, new dx of DM. Recommended he get covid shot. Ok for home with 14 days total of abx from bcx clearance, will write for linezolid. Will follow as needed, thank you, d/w Dr. Escoto and transplant case manager.
--- NOTE | 2020-09-02 12:11 | PCM.DC ---
- Discharge Diagnoses Current Active Problems: Current Active and Chronic Problems Cellulitis (Acute) Sepsis (Acute) HTN (hypertension) (Chronic) Diabetes mellitus, type II (Acute) Morbid obesity (Chronic) Cellulitis and abscess of neck (Acute) You will use the following diet at home:: Calorie/Carbohydrate Controlled (specify 1200, 1400, etc) Your food should be the consistency of: Regular Your liquids should be the consistency of: Regular/Thin Discharge Activity: Return to Normal Activity Call your doctor if your incision/area has: Continuous Slow Oozing, Increased Pain/ Swelling, Increased Redness Call your doctor if you observe: Fever of 101 or Higher, Shortness of breath, Dizziness, Fainting spells, Swelling in the ankles, Chest pain, Increased palpitations (irregular heartbeat) Instructions: Diabetes: Caring for Your Body, Diabetes: The Benefits of Exercise, Diabetes: Understanding Carbohydrates, Fats, and Protein, Exercise to Manage Your Blood Sugar, Healthy Meals for Diabetes, How to Check Your Blood Sugar, Oral Therapy for Type 2 Diabetes, Types of Insulin, Using Injected Insulin, What Is Type 2 Diabetes?, Taking Blood Pressure Medications, What Is High Blood Pressure? (JNC-7) Additional Instructions: Please obtain a primary care physician and have blood work obtained to evaluate your renal function. I started you on lisinopril and Metformin both of which can affect the kidneys and therefore this does need to be monitored closely. I also discharged you on a potassium supplement which also need to be monitored and adjusted as well. Allergies/Adverse Reactions: Allergies No Known Allergies Allergy (Verified 08/28/20 21:15) Medications to take at Discharge Amlodipine [Norvasc] 10 mg PO DAILY #30 tablet 09/02/20 Insulin Glargine [Lantus SoloStar Pen] 15 units SC QHS #1 pen 09/02/20 Linezolid 600 mg PO BID #22 tablet 09/02/20 Lisinopril 10 mg PO DAILY #30 tablet 09/02/20 Metformin HCl [Metformin ER Gastric] 500 mg PO DAILY #30 [id number] 09/02/20 [place], Insulin Disposable [Novofine Autocover 30G Needle] 1 each MISCELL. UD #1 box 09/02/20 Potassium Chloride Oral Tablet [K-Dur] 20 meq PO BIDCM #30 tablet 09/02/20 The following prescriptions were given: Potassium Chloride Oral Tablet [K-Dur] 20 meq PO BIDCM #30 tablet Transmission Status: Pending to [facility] Insulin Glargine [Lantus SoloStar Pen] 15 units SC QHS #1 pen Transmission Status: Pending to [facility] Linezolid 600 mg PO BID #22 tablet Transmission Status: Received by [facility] Lisinopril 10 mg PO DAILY #30 tablet Transmission Status: Pending to [facility] Metformin HCl [Metformin ER Gastric] 500 mg PO DAILY #30 [id number] Transmission Status: Pending to [facility] Amlodipine [Norvasc] 10 mg PO DAILY #30 tablet Transmission Status: Pending to [facility] [place], Insulin Disposable [Novofine Autocover 30G Needle] 1 each MISCELL. UD #1 box Transmission Status: Pending to [facility] Primary Care Physician: Care Physician,No Primary [Primary Care Provider] - Please follow up with your Primary Care Physician in: 3-5 days Test Results: Test results from this visit will be discussed in further detail at your follow-up appointment, if applicable.
[2020-09-02] MEDS: Potassium Chloride Oral Tablet 20 MEQ 60 MEQ PO (12:29)
--- NOTE | 2020-09-02 14:13 | DS.PCM_ITS ---
Discharge Date and Diagnosis - Problem List Patient Problems: Active and Suspected Problems MRSA (methicillin resistant Staphylococcus aureus) (Acute) Cellulitis (Acute) Sepsis (Acute) Diabetes mellitus, type II (Acute) Cellulitis and abscess of neck (Acute) Date of Admission: 08/28/20 Date of Discharge: 09/02/20 - Primary Discharge Diagnosis Acute Problems: Active Problems MRSA (methicillin resistant Staphylococcus aureus) (Acute) Cellulitis (Acute) Sepsis (Acute) Diabetes mellitus, type II (Acute) Cellulitis and abscess of neck (Acute) - Secondary Discharge Diagnosis Chronic Problems: Chronic Problems HTN (hypertension) (Chronic) Morbid obesity (Chronic) Hospital Course and Treatment Imaging Results: Clinical Impression(s) from Imaging Studies Soft Tissue Neck CT 08/28/20 21:51 IMPRESSION: Within the subcutaneous tissues of the left posterior neck, inflammation and edema without a discrete abscess. Likely cellulitis. Enlarged and heterogeneous thyroid diffusely. Electronically Signed: Eric Mendes DO at 23:21 EDT Tel , Service support , Echocardiogram 08/30/20 12:28 Interpretation Summary The estimated ejection fraction is 55 %. Normal diastology for age. possible bicuspid aortic valve Ordering Physician: Darius Tidwell Referring Physician: No PCP Performed By: Bret Guy RCS Chest X-Ray 08/30/20 17:00 IMPRESSION: 1. Tube position as noted above. 2. Bibasilar atelectasis. Electronically Signed: Carole Campos MD at 17:27 EDT Tel , Service support , Report of Operation Date of Procedure: 08/29/20 Pre-Operative Diagnosis: Left MRSA neck abscess/cellulitis, Uncontrolled diabetes Post-Operative Diagnosis: Same Surgery/Procedure Performed:: Incision and drainage/debridement of left neck abscess Type of Anesthesia:: Local Special Medications: Patient is on Vanco and Zosyn IV on the floor for left neck cellulitis Specimen's removed: none Estimated Blood Loss (mL): minimal Report of Operation Date of Procedure: 08/30/20 Pre-Operative Diagnosis: 1. Large diabetic MRSA abscess posterior neck. 2. Sepsis. 3. MRSA. 4. Diabetes mellitus, uncontrolled, with HgbA1c 11.8. Post-Operative Diagnosis: 1. Large diabetic MRSA abscess posterior neck involving underlying muscle. 2. Sepsis. 3. MRSA. 4. Diabetes mellitus, uncontrolled, with HgbA1c 11.8. Surgery/Procedure Performed:: Surgical preparation posterior neck with incision and drainage and excisional debridement diabetic MRSA abscess involving underlying muscle (50 cm2). Consultations 08/29/20 15:52 Consult: Onc/Wound/fence builder Routine Comment: Reason for Consult:: left posterior neck Surgery ID Procedures: 2-D Echocardiogram Summary of Care Provided: PEr HPI: The patient is a 45 y/o M w/ PMHx: HTN not on regimen, Morbidly obese who presents to the [facility] ED on 08/28/20 with history of onset mild irritation following recent neck shave several days prior to the left neck with development increasing redness to include the entire left posterior neck inferior to his occiput tracking all the way around to the left mastoid with a significant region of induration, some free drainage with significant pain and low-grade temperatures prompting ED evaluation. He notes that he has had some small infections in the past when he shaves but never something so significant. Work- up in the ED included T 99.3, heart rate 122, BP initially 220/119 with improvement to 136/100, respiratory rate 18, 84% on room air, CBC with WC 18, hemoglobin 16.1, platelet 238 with a significant left shift, unremarkable coags, CMP with sodium 131, potassium 3.4, chloride 95, glucose 458, lactic acid 1.9, hepatic profile not marked appearing, blood culture x2 pending per ED, CT soft tissue neck with noted subcutaneous tissues of the left posterior neck evidence of inflammation edema with no obvious discrete abscess reported with reportedly also an enlarged and heterogeneous thyroid diffusely Hospital Course: 1. Acute sepsis secondary to left posterior neck cellulitis with MRSA [id number] male presented to the hospital with a left posterior neck cellulitis and abscess. He was found to be bacteremic with MRSA and had a TTE which was unremarkable for any valvular component. He underwent 2 different I&D's and was started on vancomycin. He has had significant improvement since admission and is ready to go home today. After one of his procedures he did have an acute respiratory failure is remained intubated overnight and transferred to the ICU where he was promptly extubated and has done fine since then. He also had an JEANNETTE on admission which has resolved. He was seen by infectious disease who felt that given the clearance of his cultures that he would be okay to be discharged on oral Zyvox to complete his course of antibiotics. I discussed with him the plan for discharge and he expressed understanding of the risk and benefits of going home and would like to go home today. 2. New onset type 2 diabetes as well as new onset hypertension/obesity-I discussed with him that on admission his A1c was elevated to 11.2. His blood sugars were likely also elevated secondary to his infection and I anticipate that this should improve as his infection resolves. He was placed on insulin both mealtime as well as long-acting twice daily. He has not seen a doctor in over 10 years therefore in an attempt to simplify his medications and to encourage compliance, I decreased his Lantus to 15 units every night and started him on Metformin 500 daily. This will obviously need to be increased slowly until he is able to do the lifestyle modifications that we had discussed. I do recommend that he follow-up with his PCP as an outpatient for lab work to monit or his renal function as he was also placed on lisinopril for his high blood pressure as well as Norvasc. Also given his hyperglycemia, his potassium has been fairly low with institution of his insulin therefore he will be discharged potassium supplementation for about 2 weeks and would need lab monitoring as an outpatient for this as well. 3. Enlarging heterogeneous thyroid-patient is aware that he will need to follow-up as an outpatient with an ultrasound of his thyroid once his neck infection has resolved. Patient Problems: Active and Suspected Problems MRSA (methicillin resistant Staphylococcus aureus) (Acute) Cellulitis (Acute) Sepsis (Acute) Diabetes mellitus, type II (Acute) Cellulitis and abscess of neck (Acute) - Physical Exam Vitals/I&O's: Vital Signs Temp Pulse Resp BP Pulse Ox 97.9 F 94 16 176/99 H 94 09/02/20 11:09 09/02/20 11:09 09/02/20 11:09 09/02/20 11:09 09/02/20 11:09 Oxygen Flow Rate (L/min) 2 Oxygen Delivery Method Room Air Weight: 267 lb 3.204 oz Body Mass Index (BMI) 33.5 Intake and Output for Last 24 Hours 08/31/20 09/01/20 09/02/20 23:59 23:59 23:59 Intake Total 7465.09 / 7465.09 4313.83 / 4313.83 1764.00 / 1764.00 Output Total 2160 / 2160 Balance 5305.09 / 5305.09 4313.83 / 4313.83 1764.00 / 1764.00 General: Alert, Oriented x3, Cooperative, No apparent distress HEENT: Atraumatic, PERRLA, EOMI, Normocephalic Oral: Moist Mucosa Neck: Supple, No JVD Lungs: Clear to auscultation, Normal air movement, No rhonchi, No wheeze, No rales Cardiovascular: Regular rate, Regular Rhythm, Normal S1, Normal S2, No murmurs Abdomen: Soft, Non Tender, Non-Distended, No Hepato-splenomegaly Extremities: No edema, Capillary Refill Less than 3 Seconds Skin: Ulcer/ Wound - Left posterior neck wound dressed, dressing is intact. Photos reviewed Neurological: Neuro grossly intact, Sensory exam intact to light touch and pain Psych/Mental Status: Normal Affect, Appropriate Microbiology Past 72 Hours 08/30/20 13:55 Blood Culture (Wb) - Anticubital Right Blood Culture - Preliminary No growth in 48 hours. 08/30/20 16:10 Tissue - Neck Gram Stain - Final 08/30/20 16:10 Tissue - Neck Wound Culture - Final Meth. resistant Staph. aureus 08/30/20 16:10 Tissue - Neck Anaerobic Culture - Final No anaerobic bacteria isolated. 08/31/20 10:00 Blood Culture (Wb) - Right Hand Blood Culture - Preliminary No growth in 48 hours. 08/28/20 22:13 Blood Culture (Wb) - Right Wrist Blood Culture - Preliminary No growth in 48 hours. 08/29/20 02:02 Abs - Neck Gram Stain - Final 08/29/20 02:02 Abs - Neck Wound Culture - Final Meth. resistant Staph. aureus 08/28/20 22:05 Blood Culture (Wb) - No Site/Description Given Blood Culture - Final Meth. resistant Staph. aureus 08/30/20 10:55 Mucosa - Nose SARS-CoV-2 Antigen (Rapid) - Final Laboratory Results 09/01/20 17:06: POC Glucose 257 H 09/01/20 21:59: POC Glucose 278 H 09/02/20 06:20: Sodium 135 L, Potassium 3.0 L, Chloride 99, Carbon Dioxide 27.0, Anion Gap 9, BUN 8, Creatinine 0.73, Estim Creat Clear Calc 155.95, Est GFR (MDRD) Af Amer 151, Est GFR (MDRD) Non-Af 125, BUN/Creatinine Ratio 11.0, Glucose 208 H, Calcium 8.8 09/02/20 07:28: POC Glucose 229 H 09/02/20 11:02: POC Glucose 294 H Current Medications Acetaminophen (Acetaminophen 325 Mg Tablet) 650 mg PO Q6H PRN PRN PRN Reason: Pain Score 1-10/Temp > 100.7 F Last Admin: 09/02/20 04:21 Dose: 650 mg Documented by: Al Hydroxide/Mg Hydroxide (Mag Hydrox/Al Hydrox/Simeth 30 Ml Udc) 30 ml PO Q6H PRN PRN PRN Reason: Gastric Burning Albuterol Sulfate (Albuterol 2.5 Mg/3 Ml Vial.Neb.) 2.5 mg INHALATION Q2H PRN PRN PRN Reason: Dyspnea, wheezing Amlodipine Besylate (Amlodipine 10 Mg Tablet) 10 mg PO DAILY [facility] Last Admin: 09/02/20 08:39 Dose: 10 mg Documented by: Dextrose (Dextrose 50%-Water 25 Gm/50 Ml Disp.Syrin) 0 gm IV X1 PRN; Protocol PRN Reason: Hypoglycemia Enoxaparin Sodium (Enoxaparin 40 Mg/0.4 Ml Syringe) 40 mg SC DAILY [facility] Last Admin: 09/02/20 08:37 Dose: Not Given Documented by: Famotidine (Famotidine 20 Mg Tablet) 20 mg PO BID [facility] Last Admin: 09/02/20 08:37 Dose: 20 mg Documented by: Glucagon (Glucagon 1 Mg/Ml Syringe) 1 mg IM .X1 PRN PRN Reason: Hypoglycemia Hydralazine HCl (Hydralazine 20 Mg/Ml Vial) 10 mg IV Q4H PRN PRN PRN Reason: SBP > 160 Last Admin: 09/02/20 11:07 Dose: 10 mg Documented by: Hydralazine HCl (Hydralazine 25 Mg Tablet) 25 mg PO TID [facility] Last Admin: 09/02/20 06:01 Dose: 25 mg Documented by: Sodium Chloride () 1,000 mls @ 125 mls/hr IV .Q8H [facility] Last Infusion: 09/02/20 12:07 Dose: Infused Documented by: Vancomycin IV Pharmacy to Dose (1 each/ Sodium Chloride) 500 mls @ 250 mls/hr IV X1 PRN; Protocol PRN Reason: Rx to Dose Vancomycin HCl 2,000 mg/ (Sodium Chloride) 540 mls @ 250 mls/hr IV Q8H [facility] Last Admin: 09/02/20 12:05 Dose: 250 mls/hr Documented by: Insulin Glargine (Insulin Glargine 100 Units/Ml Pen) 30 units SC BID [facility] Last Admin: 09/02/20 08:36 Dose: 30 units Documented by: Insulin Human Lispro (Insulin Lispro 100 Unit/Ml Insuln.Pen) 0 unit SC ACHS [facility]; Protocol Last Admin: 09/02/20 11:56 Dose: 4 u Documented by: Insulin Human Lispro (Insulin Lispro 100 Unit/Ml Insuln.Pen) 10 unit SC TIDAC [facility] Last Admin: 09/02/20 11:57 Dose: 10 units Documented by: Linezolid (Linezolid 600 Mg Tablet) 600 mg PO BID [facility] Last Admin: 09/02/20 11:53 Dose: 600 mg Documented by: Magnesium Hydroxide (Magnesium Hydroxide 30 Ml Udc) 30 ml PO DAILY PRN PRN PRN Reason: Constipation Last Admin: 08/30/20 06:37 Dose: 30 ml Documented by: Ondansetron HCl (Ondansetron 4 Mg/2 Ml Vial) 4 mg IV Q8H PRN PRN PRN Reason: NAUSEA/VOMITING Last Admin: 08/29/20 20:40 Dose: 4 mg Documented by: Oxycodone HCl (Oxycodone 5 Mg Tablet) 5 mg PO Q4H PRN PRN PRN Reason: Pain Score 4-5 Last Admin: 09/02/20 04:20 Dose: 5 mg Documented by: Potassium Chloride (Potassium Chloride Oral Tablet 20 Meq) 20 meq PO BIDCM [place] Last Admin: 09/02/20 08:43 Dose: 20 meq Documented by: Prochlorperazine Edisylate (Prochlorperazine 10 Mg/2 Ml Vial) 5 mg IV Q4H PRN PRN PRN Reason: Breakthrough nausea/vomiting Psyllium Hydrophilic Mucilloid (Psyllium 1 Packet) 1 packet PO DAILY PRN PRN PRN Reason: Constipation Senna/Docusate Sodium (Senna/Docusate Sodium 1 Tablet) 2 tablet PO BID PRN PRN PRN Reason: Constipation Last Admin: 08/30/20 09:13 Dose: 2 tablet Documented by: Sodium Chloride (0.9% Saline Lock 10 Ml Syringe) 10 - 40 ml IV UD PRN PRN Reason: SALINE FLUSH Last Admin: 08/30/20 23:04 Dose: 10 ml Documented by: Sodium Hypochlorite (Dakin's Margret Half Strength (=0.25%)) 1 applic TOPICAL BID [facility]; Protocol Last Admin: 09/02/20 11:08 Dose: 1 applic Documented by: Temazepam (Temazepam 15 Mg Capsule) 15 mg PO QHS PRN PRN PRN Reason: INSOMNIA Last Admin: 08/29/20 22:15 Dose: 15 mg Documented by: Throat Lozenges (Benzocaine/Menthol 1 Lozenge) 1 lozenge MUCOUS MEM Q2H PRN PRN PRN Reason: SORE THROAT Discharge Activity: Return to Normal Activity Call your doctor if your incision/area has: Continuous Slow Oozing, Increased Pain/ Swelling, Increased Redness Call your doctor if you observe: Fever of 101 or Higher, Shortness of breath, Dizziness, Fainting spells, Swelling in the ankles, Chest pain, Increased palpitations (irregular heartbeat) Home Medications: Medications to take at Discharge Amlodipine [Norvasc] 10 mg PO DAILY #30 tablet 09/02/20 Insulin Glargine [Lantus SoloStar Pen] 15 units SC QHS #1 pen 09/02/20 Linezolid 600 mg PO BID #22 tablet 09/02/20 Lisinopril 10 mg PO DAILY #30 tablet 09/02/20 Metformin HCl [Metformin ER Gastric] 500 mg PO DAILY #30 [id number] 09/02/20 [place], Insulin Disposable [Novofine Autocover 30G Needle] 1 each MISCELL. UD #1 box 09/02/20 Potassium Chloride Oral Tablet [K-Dur] 20 meq PO BIDCM #30 tablet 09/02/20 Following Prescriptions Were Given to Patient: Potassium Chloride Oral Tablet [K-Dur] 20 meq PO BIDCM #30 tablet Transmission Status: Received by [facility] Insulin Glargine [Lantus SoloStar Pen] 15 units SC QHS #1 pen Transmission Status: Received by [facility] Linezolid 600 mg PO BID #22 tablet Transmission Status: Received by [facility] Lisinopril 10 mg PO DAILY #30 tablet Transmission Status: Received by [facility] Metformin HCl [Metformin ER Gastric] 500 mg PO DAILY #30 [id number] Transmission Status: Received by [facility] Amlodipine [Norvasc] 10 mg PO DAILY #30 tablet Transmission Status: Received by [facility] [place], Insulin Disposable [Novofine Autocover 30G Needle] 1 each MISCELL. UD #1 box Transmission Status: Received by [facility] Primary Care Physician: Care Physician,No Primary [Primary Care Provider] - Please follow up with your Primary Care Physician in: 3-5 days Patient Instructions: What Is Type 2 Diabetes?, How to Check Your Blood Sugar, Using Injected Insulin, Oral Therapy for Type 2 Diabetes, Types of Insulin, Healthy Meals for Diabetes, Exercise to Manage Your Blood Sugar, Diabetes: Caring for Your Body, Diabetes: The Benefits of Exercise, What Is High Blood Pressure? (JNC-7), Taking Blood Pressure Medications, Diabetes: Understanding Carbohydrates, Fats, and Protein Disposition: Home Minutes spent on discharge:: 35 Patient Condition:: Stable Medical Necessity - Tobacco Use Smoking Status: Never smoker Tobacco Use: Non-smoker Meaningful Use Info Meaningful Use Diagnoses (Choose all that apply): None applicable Inpatient E&M: 12265 [facility]
--- NOTE | 2020-09-02 14:14 | NURSING ---
Called and [facility] with appt time for pt to be seen.
--- NOTE | 2020-09-02 14:46 | NURSING ---
present in room and patient is being discharged home today. had watched dressing change this weekend, but this nurse showed again to be sure she felt comfortable changing the dressing. states she feels comfortable with the dressing change. pt sent with supplies. only supply needed was 4x4 dressings. Pt had new bottle of Dakins. dressing to be changed twice a day. pt and deny questions.
--- NOTE | 2020-09-02 15:30 | PHA.DC.MR ---
Pharmacy Service has performed discharge medication reconciliation for this patient. The patient's discharge medication list was reviewed for discrepancies and discrepancies were resolved. Home Medications Amlodipine [Norvasc] 10 mg PO DAILY #30 tablet 09/02/20 Insulin Glargine [Lantus SoloStar Pen] 15 units SC QHS #1 pen 09/02/20 Linezolid 600 mg PO BID #22 tablet 09/02/20 Lisinopril 10 mg PO DAILY #30 tablet 09/02/20 Metformin HCl [Metformin ER Gastric] 500 mg PO DAILY #30 [id number] 09/02/20 [place], Insulin Disposable [Novofine Autocover 30G Needle] 1 each MISCELL. UD #1 box 09/02/20 Potassium Chloride Oral Tablet [K-Dur] 20 meq PO BIDCM #30 tablet 09/02/20
== END 2020-09-02 14:51 | disposition home or self-care (01) | DRG 853 ==
LOC: ED 22:15 → MS3 08-29 00:19 → ICU 08-30 16:45 → MS3 08-31 11:09
PROVIDERS: Internal Medicine; Internal Medicine Critical Care Medicine; Surgery; Admitting Provider Family Medicine; Emergency Provider Emergency Medicine; Visit Provider Family Medicine
PROC: 0KB30ZZ Excision of Left Neck Muscle, Open Approach (ICD-10-PCS; principal; 2020-08-30 14:30)
DX: A41.02 Sepsis due to Methicillin resistant Staphylococcus aureus (principal); J95.821 Acute postprocedural respiratory failure; L02.11 Cutaneous abscess of neck; L03.221 Cellulitis of neck; N17.9 Acute kidney failure, unspecified; I10 Essential (primary) hypertension; E11.65 Type 2 diabetes mellitus with hyperglycemia; E04.9 Nontoxic goiter, unspecified; E66.9 Obesity, unspecified; Z68.33 Body mass index [BMI] 33.0-33.9, adult; E87.6 Hypokalemia
CPT/HCPCS: 31720; 36415; 70491; 71045; 80048; 80053; 80202; 82550; 82962; 83036; 83605; 83735; 84134; 84439; 84443; 84478; 85025; 85027; 85610; 85730; 87040; 87070; 87075; 87077; 87102; 87176; 87186; 87205; 87206; 87426; 87640; 88304; 88305; 93005; 93306; 94002; 94003; 94660; 97802; 97803; 99251; 99285; J7030; J7040; J7050; Q9957; Q9967; A4216; C8929; G0463; J0295; J2405; J3010

== ENCOUNTER 2020-09-09 07:58 | Outpatient (RCR) | payer OTHER, SELFPAY ==
[2020-08-30 13:25] VITALS: BMI 33.5
[2020-09-09 08:15] VITALS: BP 169/103; PULSE 76; RESP 16; TEMP 36.2; BMI 32.8
--- NOTE | 2020-09-09 11:41 | PN.PCM_ITS ---
History of Present Illness Date of Service: 09/09/20 Chief Complaint: Left posterior neck diabetic wound. History of Wound: Patient was admitted on 08/28/20 for cellulitis and abscess of neck along with sepsis and DM type 2. He had a bedside debridement on 08/29/20. Surgery 08/30/20- Surgical preparation posterior neck with incision and drainage and excisional debridement diabetic MRSA abscess involving underlying muscle (50 cm2). He was positive for MRSA sepsis. His operative culture was MRSA. He as treated while hospitalized with Vancomycin and Zosyn IV. He was discharged home on Linezolid for 11 days. On 08/31 PreAlbumin was 7.2. HgbA1C 11.8. Wound Care is Dakin's moistened gauze topped with dry gauze. 1-2 times daily. Today he denies fever. He states his appetite has been good. Progress of Wound: Stable. There are areas of cauterization that has dried out, most likely due to the gauze not being packed into the wound as tightly as it should be. Subjective Subjective: Patient is having some discomfort, but is working and doing ok. He states he is having minimal pain. Objective Data Objective Data Vital Signs: Vital Signs Temp Pulse Resp BP 97.2 F L 76 16 169/103 H 09/09/20 08:15 09/09/20 08:15 09/09/20 08:15 09/09/20 08:15 Oxygen Delivery Method Room Air Weight: 270 lb Body Mass Index (BMI) 32.8 Assessment & Plan Assessment/Plan (1) Open wound of neck with complication: Status: Acute Code(s): S11.90XA - Unspecified open wound of unspecified part of neck, initial encounter (2) MRSA (methicillin resistant Staphylococcus aureus): Status: Acute Code(s): A49.02 - Methicillin resistant Staphylococcus aureus infection, unspecified site (3) Hemoglobin A1C greater than 9%, indicating poor diabetic control: Status: Acute Code(s): R73.09 - Other abnormal glucose (4) Abscess of neck: Status: Acute Code(s): L02.11 - Cutaneous abscess of neck (5) Cellulitis: Status: Acute Code(s): L03.90 - Cellulitis, unspecified (6) Diabetes mellitus, type II: Status: Acute Code(s): E11.9 - Type 2 diabetes mellitus without complications Qualifiers: Diabetes mellitus complication status: with other specified complication Diabetes mellitus group home insulin use: without equipment operator intermodal yard use Qualified Code(s): E11.69 - Type 2 diabetes mellitus with other specified complication Plan: Surgery - 09/01/20 - Surgical preparation posterior neck with incision and drainage and excisional debridement diabetic MRSA abscess involving underlying muscle (50 cm2). Cultures from 08/28/20 - MRSA. Sent home on Linezolid, which he is still taking. Prealbumin from 08/31 - 7.2. HgbA1C - 11.8. Wound care - Dakin's moistened gauze topped with dry gauze BID. Follow up one week. Charges/Coding Procedures Integumentary [id number]: [id number] Global Visit Physical Exam Const alert and oriented x3 General Appearance: cooperative HEENT normocephalic Head and Scalp: atraumatic Eyes PERRL Resp normal respiratory effort and clear to auscultation bilaterally Cardio regular rate, regular rhythm and S1 normal heart sound GI normal to inspection, nondistended, normoactive bowel sounds Extremity normal to inspection, normal capillary refill and no calf tenderness Skin Wounds: wounds noted Wound Narrative: Left posterior back ulcer with areas that have dry cauterization. There is a build up of biofilm. Neuro CN's II-XII intact bilaterally Psych Appearance: grossly normal Debridement Note Debridement Note Post-Debridement Measurements and Additional Note: Post-Debridement Measur ements/Treatment WC - Nurse 2 - General Ulcer CM Notes Start: 09/09/20 08:15 Freq: Status: Active Protocol: Activity Type Activity Date Activity User E-Sign Co-Sign Detail Recorded Client Recorded Date Recorded By Document 09/09/20 08:53 BAILEY [id number] 09/09/20 09:06 BAILEY 09/09/20 08:53 W[facility] Nurse 2 #1- L POST NECK -Time 08:54 -Correct Patient Yes -Correct Side, Site, Position Yes -Correct Procedure Yes -Procedure Performed Yes -Type of Procedure Debridement -Clinical Debridement Muscle / Fascia -Tissue Removed Muscle,Fascia -Post Debridement (cm) - Length 4.5 -Post Debridement (cm) - Width 9 -Post Debridement (cm) - Depth 2.6 -Total Square (Post) (cm) 40.5 -Area of Debridement (cm) - Length 4.5 -Area of Debridement (cm) - Width 9 -Total Square (Area) (cm) 40.5 -Tunneling No -Undermining/Tunneling No -Circular Undermining No -Wound/Ulcer Outcome Not Healed -Ulcer Cleansing Rinsed/ Irrigated with Saline -Foul Odor after Cleansing No -Bioengineered Tissue No -Bleeding Controlled with Pressure -Offloading No -Treatment Response Procedure Tolerated Well -Debridement - Subq, 1st 20sq cm No -Debridement - Muscle / Fascia, 1st Yes 20sq cm -Debridement, Muscle/Fascia, ea addt'l 2 20sq cm or part thereof Pain Scale: 0-10 Numeric Is Patient Pain Free? Yes WC - Nurse 3 - General Ulcer D/C NN Start: 09/09/20 08:15 Freq: Status: Active Protocol: Activity Type Activity Date Activity User E-Sign Co-Sign Detail Recorded Client Recorded Date Recorded By Document 09/09/20 09:21 DL [id number] 09/09/20 09:23 DL 09/09/20 09:21 Wound Care Nurse 3 #1- L POST NECK -Ulcer Cleansing Rinsed/ Irrigated with Saline -Foul Odor after Cleansing No -Other Dressing moist saline today -Primary Dressing Covered/Secured with Dry Gauze, Secured with Tape Pain Scale: 0-10 Numeric Is Patient Pain Free? Yes WC - Visit Discharge Ambulatory Status Ambulatory Transportation Private Auto Notes: Pt to start Dakins at home, instruction given on application of dakins to pt and . Wound debrided: Posterior neck wound Laterality: Left Type of Debridement: Excisional debridement Anesthesia Used: 5% Lidocaine Gel Depth: Down to and including healthy tissue, in the subcutaneous layer and to muscle Percentage of wound debrided: 100 Instrument Used: 7mm curette Tissue Removed: Subcutaneous tissue and slough into the muscle. Increased bioburden presen Severity: Fat Layer Exposed Amount of bleeding with debridement: Mild Bleeding Controlled with: Pressure Patient tolerated procedure: Patient tolerated procedure well
== END 2020-10-07 23:59 ==
LOC: WC 07:58
PROVIDERS: Referring Provider Family Medicine; Visit Provider Nurse Practitioner Family
DX: E11.628 Type 2 diabetes mellitus with other skin complications (principal); L02.11 Cutaneous abscess of neck; A49.02 Methicillin resistant Staphylococcus aureus infection, unspecified site; E11.65 Type 2 diabetes mellitus with hyperglycemia; Z79.4 Long term (current) use of insulin; E11.69 Type 2 diabetes mellitus with other specified complication; S11.89XA Other open wound of other specified part of neck, initial encounter; X58.XXXA Exposure to other specified factors, initial encounter
CPT/HCPCS: 11043; 11046; 99213; G0463

== ENCOUNTER → 2023-07-15 | Outpatient (CLI) | payer OTHER, SELFPAY ==
[2023-07-15 17:50] LABS: Absolute Lymphocyte Count 2.31 X10^3/uL (0.83-4.51); Basophil# 0.06 X10^3/uL; Basophil% 0.7 % (0-1); Eosinophil# 0.14 X10^3/uL; Eosinophils% 1.5 % (0-5); Hematocrit 50.6 % (40-54); Lymphocyte # 2.31 X10^3/ul (0.83-4.51); Lymphocyte % 25.3 % (19-41); Mean Corp Hgb Conc 33.6 g/dL (32-36); Mean Corpuscular Hgb 27.4 pg (27.0-32.0); Mean Corpuscular Volume 81.5 fL (80-94); Monocyte# 0.56 X10^3/uL; Monocyte% 6.1 % (0-10); NRBC Flagged by Analyzer 0 % (0-5); Neutrophil # 6.03 X10^3/uL (2.7-7.7); Platelet Count 228 K/mm3 (150-450); RBC Distribution Width SD 35.5 fl (35.1-43.9); Red Blood Count 6.21 M/mm3 (4.6-6.2); White Blood Count 9.1 K/mm3 (4.4-11.0)
[2023-07-15 18:12] LABS: Hemoglobin A1c 10.9 % (3.8-5.6)
[2023-07-15 18:21] LABS: ALB/GLOB Ratio 1.1 RATIO (0.9-2.4); AST(SGOT) 17 U/L (15-37); Alanine Aminotransfer ALT/SGPT 47 U/L (16-61); Albumin, Serum 4.2 g/dL (3.2-5.0); Alkaline Phosphatase 62 U/L (45-117); Anion Gap 9 (5-15); BUN 12 mg/dL (7-18); BUN/Creat Ratio 15.1 RATIO (10-20); Calcium,Total 9.4 mg/dL (8.5-10.1); Chloride 101 mmol/L (98-107); Cholesterol 195 mg/dL (200); EST Glomerular Filtration Rate 111 mL/min (>60); Est Glom Filt Rate - Afr Amer 134 mL/min (>60); Globulin 3.8 g/dL (2.2-4.2); Glucose 301 mg/dL (74-106); High Density Lipoprotein 37 mg/dL; Potassium 3.7 mmol/L (3.5-5.1); Sodium Level 135 mmol/L (136-145); T4 Free Direct 0.97 ng/dL (0.76-1.46); Thyroid Stim Hormone (TSH) 0.56 uIU/mL (0.358-3.74); Triglycerides 340 mg/dL; Very Low Density Lipoprotein 68 mg/dL (5-40)
[2023-07-18 12:07] LABS: Thyroid Peroxidase AB 66 IU/mL (0-34); Thyroid Stim Immunoglob <0.10 IU/L (0.00-0.55)
== END | disposition home or self-care (01) ==
LOC: MFPLAB 16:38
PROVIDERS: Visit Provider Family Medicine
DX: E01.0 Iodine-deficiency related diffuse (endemic) goiter (principal); E11.9 Type 2 diabetes mellitus without complications
CPT/HCPCS: 36415; 80053; 80061; 83036; 84439; 84443; 84445; 85025; 86376

== ENCOUNTER → 2023-08-03 | Outpatient (CLI) | payer BC, SELFPAY ==
--- NOTE | 2023-08-03 12:45 | US_ITS ---
STUDY: THYROID ULTRASOUND REASON FOR EXAM: Male, 48 years old. Iodine-deficiency related diffuse (endemic) goiter TECHNIQUE: Ultrasound evaluation of the thyroid was performed with real-time and static hernandez-scale imaging. COMPARISON: None. FINDINGS: RIGHT LOBE: The right lobe of the thyroid gland is enlarged and measures 6.1 cm x 2.7 cm x 3.2 cm. There is a heterogeneous echotexture. There is a complex nodule measuring 1.2 cm x 1 cm x 1 cm in the superior pole. A solid and cystic nodule measuring 1.3 cm x 1.2 cm x 1 cm is seen in the midpole. LEFT LOBE: The left lobe of the thyroid gland is enlarged and measures 6.3 cm x 2.5 cm x 3.4 cm. There is a heterogeneous echotexture. There is a 1.4 cm x 1.4 cm x 1 cm solid nodule in the superior pole. There is a 2 cm x 1.5 cm x 1.6 cm solid nodule in the inferior pole as well as a complex nodule measuring 1.1 cm x 1.1 cm x 1 cm in the inferior pole as well. ISTHMUS: The isthmus measures 1.1 cm. The regional lymph nodes are normal. US/Thyroid IMPRESSION: Heterogeneous enlargement of both lobes of the thyroid with bilateral thyroid nodules as described. Correlation with nuclear medicine uptake and thyroid scan recommended followed by biopsy. Electronically Signed: Octaviano Ashton MD at 9:59 EDT ,
== END | disposition home or self-care (01) ==
LOC: US 12:44
PROVIDERS: PCP Family Medicine; Referring Provider Family Medicine; Visit Provider Family Medicine
DX: E01.0 Iodine-deficiency related diffuse (endemic) goiter (principal)
CPT/HCPCS: 76536

== ENCOUNTER → 2023-08-20 | Outpatient (CLI) | payer BC, SELFPAY ==
[2023-08-20 18:01] LABS: Anion Gap 3 (5-15); BUN 14 mg/dL (7-18); Calcium,Total 9.3 mg/dL (8.5-10.1); Chloride 104 mmol/L (98-107); Creatinine, Serum 0.93 mg/dL (0.70-1.30); EST Glomerular Filtration Rate 92 mL/min (>60); Est Glom Filt Rate - Afr Amer 112 mL/min (>60); Glucose 256 mg/dL (74-106); Potassium 3.6 mmol/L (3.5-5.1); Sodium Level 138 mmol/L (136-145)
== END | disposition home or self-care (01) ==
LOC: MTLAB 15:48
PROVIDERS: PCP Family Medicine; Referring Provider Family Medicine; Visit Provider Family Medicine
DX: E11.59 Type 2 diabetes mellitus with other circulatory complications (principal)
CPT/HCPCS: 36415; 80048